=== PATIENT | female | born 1995 | race Caucasian/White ===

== ENCOUNTER 2019-07-24 21:33 | Inpatient (IN) | payer SELFPAY ==
[2019-07-24 21:46] VITALS: BP 127/92; PULSE 132; RESP 16; TEMP 37.1; O2SAT 98; BMI 26.5
[2019-07-24 22:10] LABS: Basophils % 0.1 %; Eosinophils % 0.2 %; Hematocrit 35.7 % (37.0-47.0); Hemoglobin 10.8 g/dL (11.5-15.3); Lymphocytes # 0.9 10^3/uL (0.8-4.8); Lymphocytes % 5.6 %; Mean Corpuscular HGB Conc 30.3 g/dL (30.0-36.0); Mean Corpuscular Hemoglobin 24.4 pg (28.0-34.0); Mean Corpuscular Volume 80.6 fL (81-99); Mean Platelet Volume 9.3 fL (7.4-10.4); Monocytes % 6.5 %; Neutrophils % 87.2 %; Nucleated Red Blood Cells % 0 %; Platelet Count 371 10^3/cmm (130-400); Red Blood Count 4.43 10^6/uL (4.1-5.3)
[2019-07-24 22:20] LABS: HCG Qualitative Urine. Negative (Negative)
[2019-07-24 22:23] LABS: Alanine Aminotransferase 20 U/L (0-33); Albumin Level 4.2 g/dL (3.5-5.2); Alkaline Phosphatase 71 IU/L (35-105); Anion Gap 16.7 (5-19); Aspartate Amino Transferase 18 U/L (0-32); Blood Urea Nitrogen 12 mg/dL (6-20); Carbon Dioxide 25 mmol/L (22-29); Chloride 96 mmol/L (98-107); Globulin 3.9 g/dL (1.3-4.6); Glucose 141 mg/dL (65-115); Lipase 7 U/L (13-60); Osmolality Calculated 274 mOsm/kg (285-295); Potassium 4.7 mmol/L (3.5-5.1); Sodium 133 mmol/L (136-145); Total Bilirubin 0.5 mg/dL (0.15-1.2); Total Protein 8.1 g/dL (6.6-8.7)
--- NOTE | 2019-07-24 22:59 | ED_ITS ---
HPI - Abdominal Pain General: Chief Complaint: Abdominal Pain Stated Complaint: abd pain Time Seen by Provider: 07/24/19 22:57 Source: patient Mode of arrival: ambulatory Limitations: no limitations History of Present Illness: HPI narrative: Patient comes in today with complaints of a 4-day history of abdominal discomfort and nausea. Patient denies any constipation or diarrhea. Patient does report some nausea. Patient does have a low-grade fever. Patient does have a history of substance abuse and mental health disorder. Patient goes to [facility] [address] for her routine medication and does not have a routine primary care provider. MD elicited complaint: abdominal pain Associated Symptoms: Reports nausea Related Data: Date of Last Menstrual Period: 06/26/19 Review of Systems General: Reports: 10 or more systems reviewed and unremarkable except in HPI and below GI: Reports: abdominal pain and nausea PFS ED PFSH: Social History (Updated 06/10/19 @ 10:06 by Emmanuel Larios LPN) Smoking and tobacco status: current every day smoker cigarettes Packs smoked per day: 0.5 Years cigarettes smoked: 6 Quit status (tobacco): has tried quititng Number of times tried to quit tobacco: 1 Second hand smoke exposure: No Smoking risk assessment/counseling performed?: Yes Tobacco counseling given: counseling >3 minutes Female Reproductive History: Date of last menstrual period: 06/26/19 Physical Exam Const: COMMON NORMALS: no apparent distress and oriented x3 GENERAL APPEARANCE: cooperative HENMT: COMMON NORMALS: normocephalic, external ears normal, EAC's normal, TM's normal bilaterally and external nose normal HEAD & SCALP: normal to inspection and normocephalic FACE & SINUS: normal facial exam NOSE: external nose normal GENERAL EAR: hearing not grossly impaired EXTERNAL EAR: Yes external ears normal EXTERNAL AUDITORY CANAL: EAC's normal TYMPANIC MEMBRANE: TM's normal bilaterally MOUTH: oral and palatal mucosa normal THROAT: posterior oropharynx normal Eye: COMMON NORMALS: PERRL and EOMs intact bilaterally PUPIL: Yes PERRL Neck/C-Spine: COMMON NORMALS: full ROM and no lymphadenopathy Lymph: LYMPHATIC: no lymphedema noted Chest: COMMONS NORMALS: inspection of chest normal and palpation of chest normal Resp: COMMON NORMALS: normal respiratory effort and clear to auscultation bilaterally AUSCULTATION: clear to auscultation bilaterally Cardio: COMMON NORMALS: regular rate and regular rhythm RATE: regular rate RHYTHM: regular rhythm GI: INSPECTION: Yes abdominal distension AUSCULTATION: Yes high-pitched bowel sounds PALPATION: Yes tender (diffuse) : COMMON NORMALS: Yes no CVA tenderness BLADDER/KIDNEY EXAM: Yes no CVA tenderness Back/Pelvis: COMMON NORMALS: no CVA tenderness and thoracic and lumbar spine normal to inspection Extremity: COMMON NORMALS: normal to inspection GENERAL: No edema Neuro: COMMON NORMALS: oriented x3, moves all extremities and no focal motor deficits Psych: COMMON NORMALS: mental status grossly normal and cooperative Skin: COMMON NORMALS: no rashes or lesions noted GENERAL SKIN EXAM: no rashes or lesions noted Course 2 Vital Signs: Vital signs: Vital Signs Temperature 98.8 F 07/24/19 21:46 Pulse Rate 132 H 07/24/19 21:46 Respiratory Rate 16 07/24/19 21:46 Blood Pressure 127/92 07/24/19 21:46 Pulse Oximetry 98 07/24/19 21:46 MDM - Abdominal Pain MDM Narrative: Medical decision making narrative: Patient comes in today with complaints of abdominal pain and nausea. Patient also reported a occasional fever. Patient appeared and mild pain. Exam noted bowel sounds were high- pitched with diffuse abdominal tenderness. Vital signs were normal except for elevated pulse rate. Differential diagnosis includes bowel obstruction, appendicitis, gastroenteritis, constipation, urinary tract infection. CBC showed a 16,000 white count, CMP noted a 133 sodium and [address] scan of the abdomen noted a partial small bowel obstruction and colitis. Reviewed exam with Dr. Blankenship who recommended admission to hospital. Discussed with hospitalist Dr. Quintanilla who agreed to admission to observation for small bowel obstruction. Patient needs admission for monitoring, repeat x-ray, IV fluids and nasogastric decompression of the stomach. Patient will also need possible consult with surgery for further evaluation and treatment. Lab Data: Labs: Lab Results 07/24/19 07/24/19 07/24/19 Range/Units 22:00 22:00 22:10 WBC 16.0 H (4.0-10.0) 10^3/ uL RBC 4.43 (4.1-5.3) 10^6/u L Hgb 10.8 L (11.5-15.3) g/dL Hct 35.7 L (37.0-47.0) % MCV 80.6 L (81-99) fL MCH 24.4 L (28.0-34.0) pg MCHC 30.3 (30.0-36.0) g/dL RDW 16.0 H (12.1-15.1) % Plt Count 371 (130-400) 10^3/c mm MPV 9.3 (7.4-10.4) fL Neut % (Auto) 87.2 % Lymph % (Auto) 5.6 % Stevens % (Auto) 6.5 % Eos % (Auto) 0.2 % Baso % (Auto) 0.1 % Neut # (Auto) 14.0 H (1.8-7.7) 10^3/u L Lymph # (Auto) 0.9 (0.8-4.8) 10^3/u L Stevens # (Auto) 1.0 H (0.2-0.9) 10^3/u L Eos # (Auto) 0.0 (0.0-0.8) 10^3/u L Baso # (Auto) 0.0 (0.0-0.1) 10^3/u L Nucleated RBC % (a uto) 0 % Nucleated RBCs # 0.0 /100WBC Sodium 133 L (136-145) mmol/L Potassium 4.7 (3.5-5.1) mmol/L Chloride 96 L (98-107) mmol/L Carbon Dioxide 25 (22-29) mmol/L Anion Gap 16.7 (5-19) BUN 12 (6-20) mg/dL Creatinine 0.7 (0.5-0.9) mg/dL GFR Calculation 102.0 (90-130) mL/min Glucose 141 H (65-115) mg/dL Calculated Osmolal ity 274 L (285-295) mOsm/k g Calcium 10.0 (8.5-10.5) mg/dL Total Bilirubin 0.5 (0.15-1.2) mg/dL AST 18 (0-32) U/L ALT 20 (0-33) U/L Alkaline Phosphata se 71 (35-105) IU/L Total Protein 8.1 (6.6-8.7) g/dL Albumin 4.2 (3.5-5.2) g/dL Globulin 3.9 (1.3-4.6) g/dL Lipase 7 L (13-60) U/L HCG, Qual Negative (Negative) Urine Color (Yellow) Urine Appearance (CLEAR) Urine pH (5-7) Ur Specific Gravit y (1.005-1.030) Urine Protein (Negative) Urine Glucose (UA) (Normal) Urine Ketones (Negative) Urine Blood (Negative) Urine Nitrate (Negative) Urine Bilirubin (NEGATIVE) Urine Urobilinogen (Negative) mg/dL Ur Leukocyte Yudy ase (Negative) Urine RBC (0-2) /hpf Urine WBC (0-5) /hpf Ur Squamous Epith Cells (0-5) Urine Bacteria (NONE) 07/24/19 Range/Units 22:10 WBC (4.0-10.0) 10^3/ uL RBC (4.1-5.3) 10^6/u L Hgb (11.5-15.3) g/dL Hct (37.0-47.0) % MCV (81-99) fL MCH (28.0-34.0) pg MCHC (30.0-36.0) g/dL RDW (12.1-15.1) % Plt Count (130-400) 10^3/c mm MPV (7.4-10.4) fL Neut % (Auto) % Lymph % (Auto) % Stevens % (Auto) % Eos % (Auto) % Baso % (Auto) % Neut # (Auto) (1.8-7.7) 10^3/u L Lymph # (Auto) (0.8-4.8) 10^3/u L Stevens # (Auto) (0.2-0.9) 10^3/u L Eos # (Auto) (0.0-0.8) 10^3/u L Baso # (Auto) (0.0-0.1) 10^3/u L Nucleated RBC % (a uto) % Nucleated RBCs # /100WBC Sodium (136-145) mmol/L Potassium (3.5-5.1) mmol/L Chloride (98-107) mmol/L Carbon Dioxide (22-29) mmol/L Anion Gap (5-19) BUN (6-20) mg/dL Creatinine (0.5-0.9) mg/dL GFR Calculation (90-130) mL/min Glucose (65-115) mg/dL Calculated Osmolal ity (285-295) mOsm/k g Calcium (8.5-10.5) mg/dL Total Bilirubin (0.15-1.2) mg/dL AST (0-32) U/L ALT (0-33) U/L Alkaline Phosphata se (35-105) IU/L Total Protein (6.6-8.7) g/dL Albumin (3.5-5.2) g/dL Globulin (1.3-4.6) g/dL Lipase (13-60) U/L HCG, Qual (Negative) Urine Color Yellow (Yellow) Urine Appearance Cloudy (CLEAR) Urine pH 6 (5-7) Ur Specific Gravit y 1.015 (1.005-1.030) Urine Protein 1+ H (Negative) Urine Glucose (UA) Norm (Normal) Urine Ketones Negative (Negative) Urine Blood 3+ H (Negative) Urine Nitrate Negative (Negative) Urine Bilirubin Neg (NEGATIVE) Urine Urobilinogen Norm (Negative) mg/dL Ur Leukocyte Yudy ase 2+ H (Negative) Urine RBC 80-100 H (0-2) /hpf Urine WBC 25-40 H (0-5) /hpf Ur Squamous Epith Cells 15-25 H (0-5) Urine Bacteria 1+ H (NONE) Discharge Plan Discharge Patient Disposition: Placed in Observation Clinical Impression: Partial small bowel obstruction Condition: Stable Coding Level of Care Code ED Artist Color Separation for Curt Fwd Exam Comprehensive
--- NOTE | 2019-07-24 23:08 | CTR_ITS ---
PROCEDURE INFORMATION: Exam: CT Abdomen And Pelvis With Contrast Exam date and time: 07/24/2019 11:14 PM Age: 24 years old Clinical indication: Bloating and fever; Abdominal pain; Generalized; Additional info: Abd pain, fever TECHNIQUE: Imaging protocol: Computed tomography of the abdomen and pelvis with intravenous contrast. Total DLP: 1191.84 mGy-cm Radiation optimization: All CT scans at this facility use at least one of these dose optimization techniques: automated exposure control; mA and/or kV adjustment per patient size (includes targeted exams where dose is matched to clinical indication); or iterative reconstruction. Contrast material: OMNI 300; Contrast volume: 95 ml; Contrast route: 20G; COMPARISON: No relevant prior studies available. FINDINGS: Liver: Normal. No mass. Gallbladder and bile ducts: Normal. No calcified stones. No ductal dilation. Pancreas: Normal. No ductal dilation. Spleen: Normal. No splenomegaly. Adrenals: Normal. No mass. Kidneys and ureters: Normal. No hydronephrosis. Stomach and bowel: Multiple loops of small bowel are moderately dilated with air and fluid with apparent transition in the right lower quadrant. Fluid and a small amount of air seen in the small bowel distal to the area of transition. Appendix: No evidence of appendicitis. Intraperitoneal space: Unremarkable. No free air. No significant fluid collection. Vasculature: Unremarkable. No abdominal aortic aneurysm. Lymph nodes: Mild mesenteric lymphadenopathy is appreciated. Diffuse wall thickening is observed in the colon. Air and stool are also seen in the colon. Bladder: Unremarkable as visualized. Reproductive: The uterus and ovaries appear normal. Bilateral ovarian cysts are seen. The largest cyst measures 3.9 cm (left ovary). Bones/joints: Several old right rib fractures are appreciated. No acute fracture is seen. Soft tissues: Unremarkable. CT/CT abdomen pelvis w con* [id number] IMPRESSION: Colitis and high-grade partial small bowel obstruction Radiation Dose CTDIVOL = (mGy): DLP = 1191.84 (mGy-cm)
[2019-07-24] MEDS: sodium chloride 0.9% 1,000 ML 999 ML IV (23:38)
[2019-07-25] VITALS (12 sets, daily range): BP systolic 100–127; BP diastolic 63–77; PULSE 84–128; RESP 16–20; TEMP 36.6–37.3; O2SAT 90–99
[2019-07-25] MEDS: pantoprazole 40 mg SDV IVP ×2 (00:45→17:25)
[2019-07-25] MEDS: ketorolac 30 mg/mL INJ 15 MG IVP (00:48)
[2019-07-25] MEDS: iohexol 300 mg/mL 100 mL Btl IV (01:02)
[2019-07-25 01:47] LABS: Bilirubin Urine Neg (NEGATIVE); Blood Urine 3+ (Negative); Glucose Urine UA Norm (Normal); Ketones Urine Negative (Negative); Leukocyte Esterase Urine 2+ (Negative); Nitrate Urine Negative (Negative); Protein Urine 1+ (Negative); Specific Gravity, Urine 1.015 (1.005-1.030); Urine Appearance Cloudy (CLEAR); Urine Color Yellow (Yellow); Urobilinogen Urine Norm (Negative); pH Urine 6 (5-7)
[2019-07-25 01:48] LABS: Add Urine Microscopic? YES
[2019-07-25 01:50] LABS: RBC Urine 80-100 /hpf (0-2); Squamous Epithelial Cell Urine 15-25 (0-5); WBC Urine 25-40 /hpf (0-5)
[2019-07-25 01:51] LABS: Add Urine Culture? No; Bacteria Urine 1+
--- NOTE | 2019-07-25 02:26 | PM.HP ---
Providers/Chief Complaint Chief Complaint: abd pain History of Present Illness Joceline Peterson is a 24 year old female with no significant past medical history or surgical history came in with chief complaint of abdominal bloating. Patient is stating that over the weekend she ate Uzbek with rest of her family members, no one is sick, no one developed diarrhea, fever or bloody stool. She started experiencing abdominal bloating about 4 days ago, she was experiencing nausea and facial flushing without any vomiting or excruciating abdominal pain. She denies dysuria, constipation or diarrhea, recent traveling, previous history of constipation, abdominal surgeries. She has had 5 pregnancies without any . She has noticed facial flushing, temperature 100.2 at home. She is denying joint pain, yellow eyes, recent exposure to cement pool or hightower water. Diagnostics in ER revealed leukocytosis, tachycardia, CT abdomen shows colitis with partial small bowel obstruction NG tube will be placed, started her on Zosyn Review of Systems Const: Reports: fever, chills, body aches, change in appetite, fatigue, malaise and diaphoresis Eyes: Denies: change in vision or photophobia ENMT: Denies: throat pain or uvular edema Card: Denies: chest pain or palpitations Resp: Denies: shortness of breath or non-productive cough GI: Reports: abdominal pain and nausea; Denies: vomiting, vomiting blood, coffee grounds in vomit, difficulty swallowing, diarrhea, constipation, bloating, excessive passing of gas, fecal incontinence, change in bowel habits, painful bowel movements, rectal swelling, change in stool character or mucus in stool : Denies: flank pain, difficulty urinating, urinary frequency or urinary urgency Musc: Denies: neck pain, extremity swelling or joint warmth Skin/Breast: Denies: rash, itching, skin pain or skin tenderness Neuro: Denies: headache, numbness in extremities, weakness in extremities, changes in sensation or difficulty walking Psych: Reports: depression; Denies: anxiety or loss of interest Endo: Denies: excessive urination or excessive thirst Beni/Lymph: Denies: easy bruising All/Imm: Denies: hives Medications/Allergies Allergies Allergy/AdvReac Type Severity Reaction Status Date / Time No Known Allergies Allergy Unverified 06/09/19 15:49 PFSH Acute PFSH: Medical History (Updated 07/25/19 @ 02:50 by Josiah Rich MD) Depression Self-injurious behavior Smoker Suicidal ideation Surgical History No pertinent past surgical history Family History (Updated 07/25/19 @ 02:49 by Josiah Rich MD) Father Psychiatric illness Schizophrenia, Unknown Psychiatric illness 2 of her cousins committed suicide Denies family history of CAD (coronary artery disease) Clotting disorder Chronic kidney disease (CKD) Cancer Social History (Updated 07/25/19 @ 02:49 by Josiah Rich MD) Smoking and tobacco status: current every day smoker cigarettes Packs smoked per day: 0.5 Years cigarettes smoked: 6 Quit status (tobacco): has tried quititng Number of times tried to quit tobacco: 1 Second hand smoke exposure: No Smoking risk assessment/counseling performed?: Yes Tobacco counseling given: counseling >3 minutes Alcohol intake: never Substance/Drug Use: never Household members: family Housing: House Female Reproductive History: Date of last menstrual period: 06/26/19 Vitals/I&O/Wt Last Vital Signs Temp 98.8 F 07/24/19 21:46 Pulse 132 H 07/24/19 21:46 Resp 16 07/24/19 21:46 BP 127/92 07/24/19 21:46 Pulse Ox 98 07/24/19 21:46 07/24/19 07/24/19 07/25/19 14:59 22:59 06:59 Intake Total 1000 / 1000 Balance 1000 / 1000 Weight last 48 hrs Weight 65.771 kg Physical Exam Narrative: EXAM NARRATIVE: Young female lying comfortable in her bed Facial flushing Hyperemic skin rash around her neck necklace No signs of cellulitis Skin is warm nontender S1, S2 sinus tachycardia no signs of heart failure Abdomen, soft, tenderness to deep palpation in mid epigastric and hypogastric region, bowel sounds sluggish Alert oriented x3 GCS 15 Skin does not show any sign ischemia gangrene ulcer however positive skin rash around necklace Appropriate mood and affect No suicidal ideation Data : 07/24/19 22:00 07/24/19 22:00 A&P Assessment and plan (1) Colitis: Status: Acute Code(s): K52.9 - Noninfective gastroenteritis and colitis, unspecified (2) Partial small bowel obstruction: Status: Acute Code(s): K56.600 - Partial intestinal obstruction, unspecified as to cause (3) Smoker: Status: Acute Code(s): F17.200 - Nicotine dependence, unspecified, uncomplicated Additional A&P Information Sepsis secondary to colitis Sepsis A met with leukocytosis, tachycardia, will check lactic acid D5 half-normal saline fluid maintenance Zosyn antibiotic for gram-negative and anaerobic coverage She is denying UTI symptoms She ate Uzbek over the weekend, will obtain stool culture and rule out C. difficile, no history of ulcerative colitis or Crohn's disease NG to suction N.p.o. Zofran for nausea vomiting Drug screen Partial small bowel obstruction No previous history of major abdominal surgeries This seems secondary to ileus due to colitis Conservative management Serial abdominal exam with KUB No urgent need of surgical consult Depression: She is on Abilify No acute exacerbation Microcytic anemia Hemoglobin 10.8, She will need iron supplements on discharge FOBT to be checked Old rib fractures seen on CT abdomen No active pain around her rib cage DVT prophylaxis: SCDs she has low risk for DVT, Active smoker: Counseled on smoking cessation, Full code Attestations Medical Necessity Statement*: Anticipating stay in the hospital to cross more than 2 midnights needs management for partial small obstruction and colitis Time Spent in Patient Care: 40 Coding Level of Care Code Acute [place] [employer] Lab Technician for Curt Elder Diagnoses Colitis K52.9 Partial small bowel obstruction K56.600 Smoker F17.200
[2019-07-25] MEDS: morphine 4 mg/mL SDV 1 mL 2 MG IVP ×5 (02:50→23:47)
--- NOTE | 2019-07-25 03:50 | PC.NURSE ---
Patient will be going to [facility] due to recent fevers the last few days. No fevers reported today in ER.
[2019-07-25] MEDS: dextrose 5%-sod chloride 0.45% 1,000 ML 100 ML IV ×3 (04:41→23:49)
[2019-07-25] MEDS: piperacillin-tazobactam 3.375 GM in sodium chloride 0.9% (plus) 100 ML IV ×3 (05:21→19:51)
--- NOTE | 2019-07-25 10:52 | PC.CHAP ---
Pastoral Care Encounter/Spiritual Assessment Type of Contact [] Declined spinning mule tender visit [] Patient/Family/Request visit [] Outpatient visit [] Follow-up visit [] Physician referral [] Code/Alert [x] Routine visit [] Staff referral [] Actively dying [] Patient sleeping [] Family support [] [] Out of room [] Palliative care [] [] Receiving care in room [] Pre-surgical visit [] Trauma [] Long length of stay [] ICU visit [] Other: Relational/Emotional Strength [x] Patient feels connected with others/family/visitors/staff [] Distress [] Loneliness/isolation [] Abandonment Spirituality of Patient [x] Person of Shanita [x] Attends [employer] of their Shan[place] [x] Believes in Prayer [] Reads Bible or Scientology materials [] There are Spiritual issues to be addressed 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 Interventions [x] Prayer [] Active listening [] Non-anxious presence [] Spiritual/emotional support [] Crisis/trauma care [] Spiritual counseling [] Bereavement support [] Provided bereavement packet [] Provided Bible/devotional materials [] Provided toy/stuffed animal, coloring book to patient or family member [] Provided Communion [] Anointing/[place]cd[place] [] Salvation [x]x Completed spiritual assessment [] Other: Impact on Illness or Injury [] Angry [] Fearful [] Anxious [] Often cries [] Exhaustion [] Unable to work [] Unable to attend christian [] Unable to walk/stand [] Unable to read [] Unable to drive [] Unable to eat/drink [] Unable to sleep [] Unable to be with family [] Patient intubated [] Other: Summary Time spent with patient 10 min
[2019-07-25 11:42] LABS: HCG Qualitative Urine. Negative (Negative)
[2019-07-25 14:34] LABS: Amphetamines Screen Urine Positive (Negative); Barbiturates Screen Urine Negative (Negative); Benzodiazepines Screen Urine Negative (Negative); Cocaine Screen Urine Negative (Negative); Opiate Screen Urine Negative (Negative); PCP Screen Urine Negative (Negative); THC Screen Urine Positive (Negative)
[2019-07-25] MEDS: phenol oral Spray 177 mL 3 SPRAY MUCOUS MEM (14:55)
--- NOTE | 2019-07-25 15:45 | PM.PN ---
Subjective Subjective: Interval history: Patient denies nausea. She reports some abdominal pain but reports that overall is better and also less distended. She reports having bowel movement last evening which was formed. She has been having bowel movements in the last several days ever since her symptoms started. She did not pass gas today but did yesterday. Vitals/I&O/Wt Last Vital Signs Temp 98.7 F 07/25/19 11:48 Pulse 123 H 07/25/19 11:48 Resp 18 07/25/19 15:09 BP 115/65 07/25/19 11:48 Pulse Ox 99 07/25/19 11:48 07/25/19 07/25/19 07/25/19 06:59 14:59 22:59 Intake Total 1000.417 / 7647.485 8290.583 / 1099.583 Balance 1000.417 / 4849.911 6073.583 / 1099.583 Weight last 48 hrs Weight 65.771 kg Physical Exam Const: COMMON NORMALS: no apparent distress and oriented x3 Resp: COMMON NORMALS: normal respiratory effort and clear to auscultation bilaterally AUSCULTATION: clear to auscultation bilaterally Cardio: COMMON NORMALS: regular rate, regular rhythm and S2 normal heart sound RATE: regular rate RHYTHM: regular rhythm HEART SOUNDS: S2 normal OTHER: No lower extremity edema GI: COMMON NORMALS: normal to inspection, nondistended, normoactive bowel sounds and soft to palpation PALPATION: Yes soft OTHER: Slightly tender throughout but mostly left lower quadrant Neuro: COMMON NORMALS: oriented x3 and no focal motor deficits Data : 07/24/19 22:00 07/24/19 22:00 A&P Assessment and plan (1) Colitis: Status: Acute Code(s): K52.9 - Noninfective gastroenteritis and colitis, unspecified (2) Partial small bowel obstruction: Status: Acute Code(s): K56.600 - Partial intestinal obstruction, unspecified as to cause (3) Smoker: Status: Acute Code(s): F17.200 - Nicotine dependence, unspecified, uncomplicated Additional A&P Information Sepsis secondary to colitis Partial small bowel obstruction Depression: She is on Abilify Microcytic anemia Old rib fractures seen on CT abdomen PLAN: Reports that she is sure she is not . Continue IV fluids. So far not much NG output and she is very uncomfortable with tube. We have discussed to clamp it and monitor overnight and if no significant output and patient remains nausea free we could possibly remove it and try clear liquid diet. It is unknown at this point the reason why patient has small bowel obstruction. This could be infectious in etiology and therefore we will continue antibiotics for now. Patient denies any family history of inflammatory bowel disease. Should patient not improve move may need to do further evaluation with endoscopy and possibly surgical intervention. Case discussed with patient and her mother at bedside. They voiced understanding and agreed with plan of treatment. I have discussed with patient regarding importance of smoking cessation. Patient voiced understanding. Will initiate anticoagulation with Lovenox for DVT prophylaxis and start patient on Protonix with monitoring of hemoglobin. DVT prophylaxis: Lovenox Active smoker: Counseled on smoking cessation, Full code Attestations Medical Necessity Statement*: Patient with small bowel obstruction requires close inpatient monitoring and treatment. Coding Level of Care Code Acute [employer] Nutrition Territory Manager for Chg Fwd Diagnoses Colitis K52.9 Partial small bowel obstruction K56.600 Smoker F17.200
[2019-07-25] MEDS: enoxaparin 40 mg/0.4 mL Syringe SUBCUT (17:14)
[2019-07-26] VITALS (9 sets, daily range): BP systolic 104–116; BP diastolic 67–78; PULSE 105–122; RESP 16–20; TEMP 36.4–36.7; O2SAT 95–100
--- NOTE | 2019-07-26 00:59 | PC.NURSE ---
Patient having increased pain in abdomen, PRN dose of morphine given. Physician notified. Orders received to hook NGT to LIS. LIS on for one hour with minimal output, patient still having increased pain. Notified physician, CT ordered, additional pain medication ordered. Will continue to monitor patient.
--- NOTE | 2019-07-26 01:07 | CTR_ITS ---
PROCEDURE INFORMATION: Exam: CT Abdomen And Pelvis Without Contrast Exam date and time: 07/26/2019 1:13 AM Age: 24 years old Clinical indication: Pain and condition or disease; Intestinal condition; Obstruction; Abdominal pain; Generalized; Patient HX: Increased llq abd pain, ng tube, partial sbo; Additional info: Rule out perforation TECHNIQUE: Imaging protocol: Computed tomography of the abdomen and pelvis without contrast. Total DLP: 992.16 mGy-cm Radiation optimization: All CT scans at this facility use at least one of these dose optimization techniques: automated exposure control; mA and/or kV adjustment per patient size (includes targeted exams where dose is matched to clinical indication); or iterative reconstruction. COMPARISON: CT abdomen pelvis w con* [id number] 07/25/2019 1:16 AM FINDINGS: Tubes, catheters and devices: There is an orogastric tube with tip in the stomach. Lungs: There is ground-glass opacity in the lung bases compatible with mild atelectasis or pneumonitis. Liver: There is a diffuse decrease in hepatic parenchymal density, consistent with fatty infiltration. Gallbladder and bile ducts: There is cholelithiasis. There is also hyperdensity in the gallbladder that is suspected to be vicarious excretion of contrast or radiodense sludge. No duct dilatation. Pancreas: Normal. No ductal dilation. Spleen: Normal. No splenomegaly. Adrenals: Normal. No mass. Kidneys and ureters: There is no evidence of hydronephrosis. There is no evidence of renal calcifications. Stomach and bowel: There are dilated loops of small bowel with air-fluid levels compatible with a partial small bowel obstruction. The greatest transverse measurement is 4.5 cm. The proximal small bowel/jejunum is collapsed in the left upper quadrant image 34. The distal small bowel is also collapsed. The dilated loops of small bowel specially when viewed on the coronal images are concerning for closed loop obstruction with concentric where rings and a swirled appearance of the mesentery. The loops of colon have an appropriate appearance. Some of the loops of small bowel distal to the obstruction have mild wall thickening that may reflect lack of distention or could reflect mild edema such such as seen with early bowel ischemia. Appendix: No evidence of appendicitis. Intraperitoneal space: There is a small amount of fluid in the pelvis. No localized fluid collection or abscess. No free air. No pneumatosis or free air. There is mild haziness of the mesenteric fat with edema compatible with reactive changes. Vasculature: Unremarkable.No abdominal aortic aneurysm. Lymph nodes: Subcentimeter lymph nodes are noted in the mesentery. Bladder: Unremarkable as visualized. Reproductive: Unremarkable as visualized. Bones/joints: Old right rib fracture deformities are noted. Soft tissues: There is a small focus of subcutaneous emphysema just beneath the skin surface of the lower abdominal wall that is presumed to be from recent subcutaneous injection. CT/CT abdomen pelvis wo con [id number] IMPRESSION: 1. Dilated loops of small bowel with swirled appearance of the mesentery. There are collapsed proximal and distal loops of small bowel in the appearance is compatible with a closed loop obstruction. No pneumatosis or free air. 2. Mild wall thickening/edema of the loops of small bowel distal to the obstruction is identified. This may reflect lack of distention or early edema/ischemia. Radiation Dose CTDIVOL = (mGy): DLP = 992.16 (mGy-cm)
[2019-07-26] MEDS: HYDROmorphone 1 mg/mL INJ 1 mL 2 MG IVP (01:19)
[2019-07-26] MEDS: pantoprazole 40 mg SDV IVP ×2 (04:45→16:32)
[2019-07-26] MEDS: piperacillin-tazobactam 3.375 GM in sodium chloride 0.9% (plus) 100 ML IV ×3 (04:45→21:22)
--- NOTE | 2019-07-26 04:51 | PC.NURSE ---
Patient received one time dose of dilaudid, went to radiology for CT scan via wheelchair in stable condition. Arrived back on floor in stable condition stating pain is much better now than before going down to CT. Discussed CT results with Dr Rich, per physician to keep NGT on LIS. Patient abdomen still distended but soft, bowel sounds present but hypoactive. Patient states she is feeling much better, is sleepy but easily arousable and appropriate. Will continue to monitor patient.
[2019-07-26 05:22] LABS: Basophils % 0.1 %; Eosinophils # 0.1 10^3/uL (0.0-0.8); Eosinophils % 0.7 %; Hemoglobin 9.4 g/dL (11.5-15.3); Lymphocytes # 1.2 10^3/uL (0.8-4.8); Lymphocytes % 12.7 %; Mean Corpuscular HGB Conc 30.3 g/dL (30.0-36.0); Mean Corpuscular Hemoglobin 25.1 pg (28.0-34.0); Mean Corpuscular Volume 82.7 fL (81-99); Mean Platelet Volume 9.2 fL (7.4-10.4); Monocytes # 0.7 10^3/uL (0.2-0.9); Monocytes % 7.5 %; Neutrophils # 7.5 10^3/uL (1.8-7.7); Neutrophils % 78.7 %; Nucleated Red Blood Cells % 0 %; Platelet Count 315 10^3/cmm (130-400); Red Blood Count 3.75 10^6/uL (4.1-5.3); Red Cell Distribution Width 16.3 % (12.1-15.1); White Blood Count 9.5 10^3/uL (4.0-10.0)
[2019-07-26 05:33] LABS: Alanine Aminotransferase 15 U/L (0-33); Albumin Level 3.3 g/dL (3.5-5.2); Alkaline Phosphatase 58 IU/L (35-105); Anion Gap 13.6 (5-19); Aspartate Amino Transferase 12 U/L (0-32); Blood Urea Nitrogen 5 mg/dL (6-20); Calcium 8.8 mg/dL (8.5-10.5); Carbon Dioxide 25 mmol/L (22-29); Chloride 96 mmol/L (98-107); Creatinine Clr Calc Pharmacy 127.5466; Globulin 3.4 g/dL (1.3-4.6); Glomerular Filtration Rate 121.8 mL/min (90-130); Glucose 110 mg/dL (65-115); Osmolality Calculated 268 mOsm/kg (285-295); Potassium 3.6 mmol/L (3.5-5.1); Sodium 131 mmol/L (136-145); Total Bilirubin 0.5 mg/dL (0.15-1.2); Total Protein 6.7 g/dL (6.6-8.7)
[2019-07-26 05:34] LABS: Lactic Acid level (Lactate) 0.4 mmol/L (0.5-2.2)
[2019-07-26] MEDS: dextrose 5%-sod chloride 0.45% 1,000 ML 100 ML IV (09:24)
--- NOTE | 2019-07-26 14:03 | P.CONIM_ITS ---
Providers/Reason For Consult Consulting Physican/Specialty*: Lane Kinsey MD General surgery Reason for Consult*: Bowel obstruction Attending Physician: Jeramie Peraza MD History of Present Illness History of Present Illness Joceline Peterson is a 24 year old female patient presents with worsening abdominal pain as the pain started about last Sunday and she developed worsening pain which is more diffuse colicky in nature without being referred, nothing seems to make it better and that was associated with fevers per her description and abdominal distention, patient thought over the past few days that it will get better but it did not that is why she presented to the emergency department evening and ended up by getting a CT scan of the abdomen and pelvis that showed: Colitis and high-grade partial small bowel obstruction Patient was admitted on the hospitalist service and an NG tube was inserted and patient consequently felt relief at when the NG was clamped today patient started to encounter pain again and thus the hospitalist service elected to repeat the CT scan for further evaluation and a repeat CT scan showed: 1. Dilated loops of small bowel with swirled appearance of the mesentery. There are collapsed proximal and distal loops of small bowel in the appearance is compatible with a closed loop obstruction. No pneumatosis or free air. 2. Mild wall thickening/edema of the loops of small bowel distal to the obstruction is identified. This may reflect lack of distention or early edema/ischemia Upon further inquiry the patient did not have any history of abdominal surgeries or pelvic inflammatory disease or any history of inflammatory bowel disease when I asked her. Dr. Peraza contacted me for consultation with regard to the above findings due to his concerns for further evaluation and potential intervention Patient also denies any history of food poisoning and she has been passing gas and before coming to the hospital she had a bowel movement. After further discussion with the radiologist correctional officer lieutenant about my concerns that the CT scan does not signify a closed-loop giving the fact the clinical picture as well as the absence of biochemical parameters to support that addendum was added: Findings were discussed with Amelie at 07/26/2019 2:36 PM CDT. He wished to discuss whether or not the patient has definite CT signs of closed loop bowel obstruction and/or ischemia. I pointed out that since the scan yesterday she had an NG placed which has decompressed the stomach and likely proximal small bowel. The dilated small bowel does not have a thickened wall. The wall thickening more so affects the terminal ileum and colon. Cannot assess on this scan for hypoperfusion of bowel as it is a noncontrast study. However, he indicated the patient's WBC has dropped from 16K to 9.5K, and her lactic acid is normal at 0.4. He said she has no peritoneal signs. There is mild mesenteric adenopathy which can be reactive to a bowel inflammatory process. I suggested that perhaps she has inflammatory bowel disease, complicated by SBO. Review of Systems Const: Reports: fever, chills, change in appetite, fatigue and malaise Eyes: Denies: change in vision or photophobia ENMT: Denies: throat pain or uvular edema Card: Denies: chest pain or palpitations Resp: Denies: shortness of breath or non-productive cough GI: Reports: abdominal pain and nausea; Denies: vomiting, vomiting blood, coffee grounds in vomit, difficulty swallowing, diarrhea, constipation, bloating, excessive passing of gas, fecal incontinence, change in bowel habits, painful bowel movements, rectal swelling, change in stool character or mucus in stool : Denies: flank pain, difficulty urinating, urinary frequency or urinary urgency Musc: Denies: neck pain, extremity swelling or joint warmth Skin/Breast: Denies: rash, itching, skin pain or skin tenderness Neuro: Denies: headache, numbness in extremities, weakness in extremities, changes in sensation or difficulty walking Psych: Reports: depression; Denies: anxiety or loss of interest Endo: Denies: excessive urination or excessive thirst Beni/Lymph: Denies: easy bruising All/Imm: Denies: hives Meds/Allergies Home Medications and Allergies Home Medications Medication Instructions Recorded Confirmed Type aripiprazole [Abilify] 15 mg PO BEDTIME 07/25/19 07/25/19 History Allergies Allergy/AdvReac Type Severity Reaction Status Date / Time No Known Allergies Allergy Verified 07/26/19 14:32 Current Medications Current Medications Generic Name Dose Route Start Last Admin Trade Name Freq PRN Reason Stop Dose Admin Enoxaparin Sodium 40 mg 07/25/19 16:00 07/25/19 17:14 Lovenox SUBCUT 40 mg Q24H SHEBA Administration Piperacillin Sod/Tazobactam 100 mls @ 25 mls/hr 07/25/19 05:00 07/26/19 12:09 Sod 3.375 gm/ Sodium Chloride IV 25 mls/hr Q8H SHEBA Administration Protocol Dextrose/Sodium Chloride 1,000 mls @ 100 mls/hr 07/25/19 04:12 07/26/19 09:24 Dextrose 5%-Sod Chloride 0.45% IV 100 mls/hr .Q10H SHEBA Administration Morphine Sulfate 2 mg 07/25/19 04:59 07/25/19 23:47 Morphine IVP 2 mg Q4H PRN Administration PAIN Pantoprazole Sodium 40 mg 07/25/19 16:00 07/26/19 04:45 Protonix IVP 40 mg Q12H SHEBA Administration Phenol 3 spray 07/25/19 14:25 07/25/19 14:55 Phenaseptic MUCOUS MEM 3 spray Q2H PRN Administration SORE THROAT PFSH Acute PFSH: Medical History Depression Self-injurious behavior Smoker Suicidal ideation Surgical History No pertinent past surgical history Family History Father Psychiatric illness Schizophrenia, Unknown Psychiatric illness 2 of her cousins committed suicide Denies family history of CAD (coronary artery disease) Clotting disorder Chronic kidney disease (CKD) Cancer Social History Smoking and tobacco status: current every day smoker cigarettes Packs smoked per day: 0.5 Years cigarettes smoked: 6 Quit status (tobacco): has tried quititng Number of times tried to quit tobacco: 1 Second hand smoke exposure: No Smoking risk assessment/counseling performed?: Yes Tobacco counseling given: counseling >3 minutes Alcohol intake: never Substance/Drug Use: never Household members: family Housing: House Female Reproductive History: Date of last menstrual period: 07/25/19 Vitals/I&O/Wt Last Vital Signs Temp 97.9 F 07/26/19 11:59 Pulse 113 H 07/26/19 11:59 Resp 18 07/26/19 11:59 BP 113/76 07/26/19 11:59 Pulse Ox 99 07/26/19 11:59 07/25/19 07/26/19 07/26/19 22:59 06:59 14:59 Intake Total 100 / 1199.583 981.667 / 2181.250 1058.333 / 1058.333 Output Total 500 / 500 Balance 100 / 1199.583 481.667 / 9774.749 1913.333 / 1058.333 Weight last 48 hrs Weight 145 lb Physical Exam Const: COMMON NORMALS: no apparent distress GENERAL APPEARANCE: cooperative ORIENTATION/CONSCIOUSNESS: Yes awake, Yes oriented to person, Yes oriented to place and Yes oriented to time HENMT: COMMON NORMALS: normocephalic HEAD & SCALP: normocephalic THROAT: no uvular edema Eye: COMMON NORMALS: PERRL and no scleral icterus PUPIL: Yes PERRL Lymph: LYMPHATIC: no lymphadenopathy noted Chest: COMMONS NORMALS: inspection of chest normal Resp: COMMON NORMALS: normal respiratory effort and clear to auscultation bilaterally AUSCULTATION: clear to auscultation bilaterally Cardio: COMMON NORMALS: S1 normal heart sound and S2 normal heart sound; negative for no murmurs HEART SOUNDS: S1 normal and S2 normal GI: COMMON NORMALS: soft to palpation; negative for no hepatosplenomegaly INSPECTION: Yes normal to inspection PALPATION: Yes soft, No firm, Yes tender Details: LLQ and RUQ, No guarding, No rigid and No no hepatosplenomegaly Neuro: SENSORIUM/ORIENTATION: Yes oriented to person, Yes oriented to place and Yes oriented to time Psych: COMMON NORMALS: mental status grossly normal A&P Assessment and plan (1) Partial small bowel obstruction: After thorough history physical examination and reviewing the chart and images with my personal interpretation, picture shows partial small bowel obstruction yet in the absence of objective signs of leukocytosis and normal lactic acid does not match the potential changes mentioned on the CT scan,at the same time the patient demonstrates on clinical exam tenderness located on the right side of the abdomen and the left lower side of the abdomen but without signs of peritonitis or guarding or rigidity. I did discuss with mom and the daughter about potential options including; Observation with repeated physical examination and repeat blood work w particular focus on obtaining ESR,CRP and stool studies and likely the patient should benefit down the road from a small bowel follow-through and diagnostic EGD and colonoscopy to rule out potential inflammatory bowel disease, since there is no evidence of closed-loop obstruction on the repeat CT scan as was noted earlier per further discussion with the radiologist on-call did not see that finding I feel more leaning towards conservative measures at this point unless the clinical picture should to change. At this point please continue NG to low intermittent wall suction and IV fluid resuscitation with repeated physical examination. There is a concern for IBD I would recommend ciprofloxacin and Flagyl IV yet will defer to Dr. Peraza for choice of antimicrobial therapy. Strict I's and O's Encourage ambulation Thank you for consulting general surgery to participate taking care Status: Acute Code(s): K56.600 - Partial intestinal obstruction, unspecified as to cause Consult Attestations Medical Necessity Statement: Per hospitalist service Time Spent in Patient Care: 16 - 35 minutes (>than 50% of time spent in counselling and/or direct pt care on unit) . Coding Level of Care Code Acute Boot And Saddle Repair Person for Chg Fwd Exam Comprehensive Diagnoses Partial small bowel obstruction K56.600
--- NOTE | 2019-07-26 14:07 | PC.CHAP ---
Pastoral Care Encounter/Spiritual Assessment Type of Contact [] Declined resident physician visit [] Patient/Family/Request visit [] Outpatient visit [] Follow-up visit [] Physician referral [] Code/Alert [] Routine visit [] Staff referral [] Actively dying [X] Patient sleeping [] Family support [] [] Out of room [] Palliative care [] [] Receiving care in room [] Pre-surgical visit [] Trauma [] Long length of stay [] ICU visit [] Other: Relational/Emotional Strength [] Patient feels connected with others/family/visitors/staff [] Distress [] Loneliness/isolation [] Abandonment Spirituality of Patient [] Person of Shanita [] Attends Scientology of their Shanita [] Believes in Prayer [] Reads Bible or Amish materials [] There are Spiritual issues to be addressed Director Government Interventions [] Prayer [] Active listening [] Non-anxious presence [] Spiritual/emotional support [] Crisis/trauma care [] Spiritual counseling [] Bereavement support [] Provided bereavement packet [] Provided Bible/devotional materials [] Provided toy/stuffed animal, coloring book to patient or family member [] Provided Communion [] Anointing/[place] [] Salvation [] Completed spiritual assessment [] Other: Impact on Illness or Injury [] Angry [] Fearful [] Anxious [] Often cries [] Exhaustion [] Unable to work [] Unable to attend lutheran [] Unable to walk/stand [] Unable to read [] Unable to drive [] Unable to eat/drink [] Unable to sleep [] Unable to be with family [] Patient intubated [] Other: Summary FOLLOW UP Time spent with patient
[2019-07-26] MEDS: morphine 4 mg/mL SDV 1 mL 2 MG IVP ×2 (14:14→19:19)
[2019-07-26] MEDS: enoxaparin 40 mg/0.4 mL Syringe SUBCUT (15:40)
--- NOTE | 2019-07-26 17:02 | PM.PN ---
Subjective Subjective: Interval history: Patient had worsening abdominal pain last night and had CT scan of the abdomen showing closed-loop obstruction findings and case was discussed with Dr. York who saw the patient in consultation. Vitals/I&O/Wt Last Vital Signs Temp 97.8 F 07/26/19 15:46 Pulse 107 H 07/26/19 15:46 Resp 16 07/26/19 15:46 BP 109/70 07/26/19 15:46 Pulse Ox 100 07/26/19 15:46 07/26/19 07/26/19 07/26/19 06:59 14:59 22:59 Intake Total 981.667 / 2181.250 1058.333 / 1058.333 Output Total 500 / 500 Balance 481.667 / 7748.465 5959.333 / 1058.333 Weight last 48 hrs Weight 65.771 kg Physical Exam Const: COMMON NORMALS: no apparent distress and oriented x3 Resp: COMMON NORMALS: normal respiratory effort and clear to auscultation bilaterally AUSCULTATION: clear to auscultation bilaterally Cardio: COMMON NORMALS: regular rate, regular rhythm and S2 normal heart sound RATE: regular rate RHYTHM: regular rhythm HEART SOUNDS: S2 normal OTHER: No lower extremity edema GI: COMMON NORMALS: normal to inspection, nondistended, normoactive bowel sounds and soft to palpation PALPATION: Yes soft OTHER: Slightly tender throughout but mostly left lower quadrant Neuro: COMMON NORMALS: oriented x3 and no focal motor deficits Data : 07/26/19 05:12 07/26/19 05:12 A&P Assessment and plan (1) Colitis: Status: Acute Code(s): K52.9 - Noninfective gastroenteritis and colitis, unspecified (2) Partial small bowel obstruction: Status: Acute Code(s): K56.600 - Partial intestinal obstruction, unspecified as to cause (3) Smoker: Status: Acute Code(s): F17.200 - Nicotine dependence, unspecified, uncomplicated Additional A&P Information Sepsis secondary to colitis Partial small bowel obstruction Depression: She is on Abilify Microcytic anemia Old rib fractures seen on CT abdomen PLAN: Continue current monitoring and treatment. Appreciate Dr. Kinsey's help. Patient may require surgical intervention if not improving. Patient will require further outpatient follow-up and evaluation for Crohn's disease. DVT prophylaxis: Lovenox Active smoker: Counseled on smoking cessation, Full code Attestations Medical Necessity Statement*: With small bowel obstruction requires close inpatient monitoring and treatment. Coding Level of Care Code Acute Emergency Dispatcher for Chg Fwd Diagnoses Colitis K52.9 Partial small bowel obstruction K56.600 Smoker F17.200
[2019-07-26] MEDS: lactated ringers 1,000 ML 150 ML IV (17:27)
[2019-07-26] MEDS: trazodone 50 mg Tablet 25 MG PO (21:54)
[2019-07-27] VITALS: BP 114/78; PULSE 103; RESP 18; TEMP 36.9; O2SAT 98
[2019-07-27] MEDS: lactated ringers 1,000 ML 150 ML IV ×3 (00:21→12:10)
[2019-07-27 04:00] VITALS: BP 139/86; PULSE 102; RESP 18; TEMP 36.6; O2SAT 97
[2019-07-27] MEDS: pantoprazole 40 mg SDV IVP ×2 (04:59→17:39)
[2019-07-27] MEDS: piperacillin-tazobactam 3.375 GM in sodium chloride 0.9% (plus) 100 ML IV (04:59)
--- NOTE | 2019-07-27 05:19 | PC.NURSE ---
Patient got up to use restroom, NGT came out. Patient has had a total of 150 ml out overnight, has been tolerating ice chips, and rates pain 5/10 currently. Notified charley Hobbs to leave NGT out at this time. Will continue to monitor patient.
[2019-07-27 05:42] LABS: Alanine Aminotransferase 13 U/L (0-33); Albumin Level 2.9 g/dL (3.5-5.2); Alkaline Phosphatase 56 IU/L (35-105); Anion Gap 14.8 (5-19); Aspartate Amino Transferase 12 U/L (0-32); Blood Urea Nitrogen 6 mg/dL (6-20); Calcium 8.7 mg/dL (8.5-10.5); Carbon Dioxide 26 mmol/L (22-29); Chloride 104 mmol/L (98-107); Globulin 3.5 g/dL (1.3-4.6); Glomerular Filtration Rate 150.3 mL/min (90-130); Glucose 82 mg/dL (65-115); Osmolality Calculated 287 mOsm/kg (285-295); Potassium 3.8 mmol/L (3.5-5.1); Sodium 141 mmol/L (136-145); Total Bilirubin 0.3 mg/dL (0.15-1.2); Total Protein 6.4 g/dL (6.6-8.7)
--- NOTE | 2019-07-27 07:30 | PM.PN ---
Subjective Subjective: Interval history: Patient overall feels better No acute events overnight except that the NG according to the patient was accidentally pulled out Patient continues to pass gas Vitals/I&O/Wt Last Vital Signs Temp 98 F 07/27/19 04:00 Pulse 102 H 07/27/19 04:00 Resp 18 07/27/19 04:00 BP 139/86 07/27/19 04:00 Pulse Ox 97 07/27/19 04:00 07/26/19 07/27/19 07/27/19 22:59 06:59 14:59 Intake Total 100 / 9085.665 8235.5 / 2975.833 Output Total 150 / 150 Balance 100 / 2772.637 6611.5 / 2825.833 Physical Exam Narrative: EXAM NARRATIVE: Patient is conscious alert oriented X3 BMI 26.5 Head and neck examination PERRLA no masses no cervical lymphadenopathy no jaundice Cardiac examination audible S1-S2 no murmurs no gallops no arrhythmias Chest is clear bilateral,abscence of Rhonchi or wheezes,no surgical emphysema Abdomen nontender nondistended soft no organomegaly guarding or rigidity/no signs of peritonitis Extremities no cyanosis no clubbing no edema Data : 07/26/19 05:12 07/27/19 05:05 A&P Assessment and plan (1) Partial small bowel obstruction: We will send the patient for a KUB erect and supine and if there is no much of distention and the gas pattern goes all the way to the colon we will start the patient slowly on clear liquid diet. Strict I's and O's Encourage ambulation Follow on ESR,CRP,CMP and stool studies. We will continue conservative measures for now I would highly recommend to have the patient to be seen by medical weapons electrical engineering officer specializing IBD the sooner the better upon discharge for further evaluation and potential medical management if it is the case. Thank you for consulting general surgery to participate taking care Status: Acute Code(s): K56.600 - Partial intestinal obstruction, unspecified as to cause Attestations Medical Necessity Statement*: Per hospitalist service Time Spent in Patient Care: 16 - 35 minutes (>than 50% of time spent in counselling and/or direct pt care on unit). Coding Level of Care Code Acute Embedded Engineer for [facility] Diagnoses Partial small bowel obstruction K56.600
--- NOTE | 2019-07-27 07:40 | XRR_ITS ---
PROCEDURE INFORMATION: Exam: XR Abdomen, 2 Views Exam date and time: 07/27/2019 7:50 AM Age: 24 years old Clinical indication: Abdominal pain; Generalized; Additional info: Bowel obstruction TECHNIQUE: Imaging protocol: XR of the abdomen. Views: 2 Views. COMPARISON: CT abdomen pelvis con [id number] 07/26/2019 1:30 AM FINDINGS: Gastrointestinal tract: Scattered gas noted within small bowel and colon, to the rectum. There are again loops of small bowel in the mid abdomen which are dilated up to 4 cm, not increased from prior. No evidence of pneumatosis. Intraperitoneal space: No free air. Bones/joints: Unremarkable. XR/XR abdomen min 2V [id number] IMPRESSION: No significant change in appearance of dilated loops of small bowel which may be related to partial obstruction versus ileus. No evidence of pneumatosis or free air.
[2019-07-27 07:44] VITALS: BP 130/85; PULSE 115; RESP 20; TEMP 36.7; O2SAT 99
--- NOTE | 2019-07-27 10:57 | PC.CHAP ---
Pastoral Care Encounter/Spiritual Assessment Type of Contact [] Declined sample maker hand visit [] Patient/Family/Request visit [] Outpatient visit [] Follow-up visit [] Physician referral [] Code/Alert [] Routine visit [] Staff referral [] Actively dying [] Patient sleeping [] Family support [] [] Out of room [] Palliative care [] [] Receiving care in room [] Pre-surgical visit [] Trauma [] Long length of stay [] ICU visit [x] Other:Patient sleeping. Relational/Emotional Strength [] Patient feels connected with others/family/visitors/staff [] Distress [] Loneliness/isolation [] Abandonment Spirituality of Patient [] Person of Shanita [] Attends Faith of their Shanita [] Believes in Prayer [] Reads Bible or Moravian materials [] There are Spiritual issues to be addressed School Fundraising Director Interventions [] Prayer [] Active listening [] Non-anxious presence [] Spiritual/emotional support [] Crisis/trauma care [] Spiritual counseling [] Bereavement support [] Provided bereavement packet [] Provided Bible/devotional materials [] Provided toy/stuffed animal, coloring book to patient or family member [] Provided Communion [] Anointing/[place] [] Salvation [] Completed spiritual assessment [] Other: Impact on Illness or Injury [] Angry [] Fearful [] Anxious [] Often cries [] Exhaustion [] Unable to work [] Unable to attend jew [] Unable to walk/stand [] Unable to read [] Unable to drive [] Unable to eat/drink [] Unable to sleep [] Unable to be with family [] Patient intubated [] Other: Summary Patient sleeping. Follow up with School Fundraising Director needed. Time spent with patient
[2019-07-27 11:19] VITALS: BP 111/74; PULSE 91; RESP 18; TEMP 36.9; O2SAT 97
--- NOTE | 2019-07-27 11:23 | PM.PN ---
Subjective Subjective: Interval history: Patient is doing much better and denies abdominal pain this morning. She is passing gas but had no bowel movement yet. Her NG tube was removed and she was started on clear liquid diet and tolerates it well. Denies being nauseous. Vitals/I&O/Wt Last Vital Signs Temp 98.4 F 07/27/19 11:19 Pulse 91 07/27/19 11:19 Resp 18 07/27/19 11:19 BP 111/74 07/27/19 11:19 Pulse Ox 97 07/27/19 11:19 07/26/19 07/27/19 07/27/19 22:59 06:59 14:59 Intake Total 100 / 3529.323 9614.5 / 2975.833 1120 / 1120 Output Total 150 / 150 Balance 100 / 4827.886 4491.5 / 2825.833 1120 / 1120 Physical Exam Const: COMMON NORMALS: no apparent distress and oriented x3 Resp: COMMON NORMALS: normal respiratory effort and clear to auscultation bilaterally AUSCULTATION: clear to auscultation bilaterally Cardio: COMMON NORMALS: regular rate, regular rhythm and S2 normal heart sound RATE: regular rate RHYTHM: regular rhythm HEART SOUNDS: S2 normal OTHER: No lower extremity edema GI: COMMON NORMALS: normal to inspection, nondistended, normoactive bowel sounds, soft to palpation and non-tender PALPATION: Yes soft Neuro: COMMON NORMALS: oriented x3 and no focal motor deficits Data : 07/26/19 05:12 07/27/19 05:05 A&P Assessment and plan (1) Colitis: Status: Acute Code(s): K52.9 - Noninfective gastroenteritis and colitis, unspecified (2) Partial small bowel obstruction: Status: Acute Code(s): K56.600 - Partial intestinal obstruction, unspecified as to cause (3) Smoker: Status: Acute Code(s): F17.200 - Nicotine dependence, unspecified, uncomplicated Additional A&P Information Sepsis secondary to colitis Partial small bowel obstruction Depression: She is on Abilify Microcytic anemia Old rib fractures seen on CT abdomen PLAN: Continue current monitoring and treatment but will discontinue Zosyn as patient clinically shows improvement with resolution of abdominal pain and stable vitals. Advance diet as tolerated. Encouraged ambulation Appreciate Dr. Giurgius's help. Patient will require further outpatient follow-up with GI specialist for evaluation for Crohn's disease. DVT prophylaxis: Lovenox Active smoker: Counseled on smoking cessation, Full code Attestations Medical Necessity Statement*: Patient with small bowel obstruction signs and symptoms requires close inpatient monitoring and treatment until her GI tract function improves and patient deemed safe for discharge. Coding Level of Care Code Acute Molecular Biology Professor for Chg Fwd Diagnoses Colitis K52.9 Partial small bowel obstruction K56.600 Smoker F17.200
[2019-07-27 15:55] VITALS: BP 124/84; PULSE 108; RESP 20; TEMP 37; O2SAT 97
[2019-07-27] MEDS: enoxaparin 40 mg/0.4 mL Syringe SUBCUT (17:38)
[2019-07-27 20:00] VITALS: BP 113/75; PULSE 106; RESP 24; TEMP 36.9; O2SAT 98
[2019-07-27] MEDS: trazodone 50 mg Tablet 25 MG PO (21:03)
[2019-07-28] VITALS: BP 118/79; PULSE 102; RESP 20; TEMP 36.8; O2SAT 97
[2019-07-28] MEDS: lactated ringers 1,000 ML 150 ML IV (01:37)
[2019-07-28 04:00] VITALS: BP 117/79; PULSE 101; RESP 20; TEMP 36.7; O2SAT 98
[2019-07-28] MEDS: pantoprazole 40 mg SDV IVP (05:00)
--- NOTE | 2019-07-28 05:43 | PM.PN ---
Subjective Subjective: Interval history: Patient continues to do well and tolerating p.o. intake Tested positive for C. difficile and stool studies and started on vancomycin p.o. per hospitalist service Vitals/I&O/Wt Last Vital Signs Temp 98.1 F 07/28/19 04:00 Pulse 101 H 07/28/19 04:00 Resp 20 H 07/28/19 04:00 BP 117/79 07/28/19 04:00 Pulse Ox 98 07/28/19 04:00 07/27/19 07/27/19 07/28/19 14:59 22:59 06:59 Intake Total 2980 / 2980 1000 / 3980 240 / 4220 Balance 2980 / 2980 1000 / 3980 240 / 4220 Physical Exam Narrative: EXAM NARRATIVE: Patient is conscious alert oriented X3 BMI 26.5 Head and neck examination PERRLA no masses no cervical lymphadenopathy no jaundice Abdomen nontender nondistended soft no organomegaly guarding or rigidity/no signs of peritonitis Data : 07/28/19 06:33 07/28/19 06:33 Micro: Microbiology 07/27/19 16:23 Stool Lactoferrin - Final Stool C.difficile Toxin B Gene (PCR) - Final Occult Blood (FIT) - Final A&P Assessment and plan (1) Partial small bowel obstruction: Management of C. difficile vancomycin p.o. for at least 10 days As of now the picture coincides more with C. difficile enterocolitis yet patient should continue to be monitored down the road and she should get the benefit of obtaining diagnostic EGD and colonoscopyin 6 to 8 weeks after subsidence of this episode. Strict I's and O's Encourage ambulation Follow on ESR,CRP,CMP and the remaining of the stool studies. Advance diet as tolerated I am happy to have the patient follow-up with me in 2 weeks after discharge to arrange for the endoscopies and to obtain random biopsies to rule out potential underlying inflammatory bowel disease. Thank you for consulting general surgery to participate taking care Status: Acute Code(s): K56.600 - Partial intestinal obstruction, unspecified as to cause Attestations Medical Necessity Statement*: Medical necessity care is expected to cross 2 midnights Time Spent in Patient Care: 16 - 35 minutes (>than 50% of time spent in counselling and/or direct pt care on unit). Coding Level of Care Code Acute Insurance Marketing Specialist for Curt Fwd Diagnoses Partial small bowel obstruction K56.600
[2019-07-28 06:47] LABS: Basophils % 0.2 %; Eosinophils # 0.1 10^3/uL (0.0-0.8); Eosinophils % 2.3 %; Hematocrit 31.3 % (37.0-47.0); Hemoglobin 9.2 g/dL (11.5-15.3); Lymphocytes # 1.2 10^3/uL (0.8-4.8); Lymphocytes % 20.7 %; Mean Corpuscular HGB Conc 29.4 g/dL (30.0-36.0); Mean Corpuscular Hemoglobin 25.3 pg (28.0-34.0); Mean Platelet Volume 9.3 fL (7.4-10.4); Monocytes # 0.4 10^3/uL (0.2-0.9); Monocytes % 6.7 %; Neutrophils # 4.2 10^3/uL (1.8-7.7); Neutrophils % 69.4 %; Nucleated Red Blood Cells % 0 %; Platelet Count 349 10^3/cmm (130-400); Red Blood Count 3.64 10^6/uL (4.1-5.3); Red Cell Distribution Width 16.6 % (12.1-15.1)
[2019-07-28 07:03] LABS: Alanine Aminotransferase 12 U/L (0-33); Albumin Level 3.2 g/dL (3.5-5.2); Alkaline Phosphatase 58 IU/L (35-105); Anion Gap 10.9 (5-19); Aspartate Amino Transferase 13 U/L (0-32); Blood Urea Nitrogen 3 mg/dL (6-20); Calcium 9.1 mg/dL (8.5-10.5); Carbon Dioxide 31 mmol/L (22-29); Chloride 104 mmol/L (98-107); Creatinine Clr Calc Pharmacy 127.5466; Globulin 3.7 g/dL (1.3-4.6); Glomerular Filtration Rate 121.8 mL/min (90-130); Glucose 103 mg/dL (65-115); Osmolality Calculated 290 mOsm/kg (285-295); Potassium 3.9 mmol/L (3.5-5.1); Sodium 142 mmol/L (136-145); Total Bilirubin 0.3 mg/dL (0.15-1.2); Total Protein 6.9 g/dL (6.6-8.7)
[2019-07-28 08:00] VITALS: BP 116/81; PULSE 101; RESP 20; TEMP 36.9; O2SAT 98
[2019-07-28 11:34] VITALS: BP 118/82; PULSE 106; RESP 18; TEMP 36.6; O2SAT 98
--- NOTE | 2019-07-28 14:49 | PM.DCS ---
Discharge Providers Date of Admission: 07/25/19 02:29 Date of Discharge: July 28, 2019 Attending Provider at Admission: Josiah Rich MD Attending Provider at Discharge: Lory Mcdermott MD Diagnoses at Discharge Discharge Diagnosis (1) Partial small bowel obstruction: Status: Acute Problem details: -NGT removed, +flatus -tolerating oral intake; advanced to GI soft diet -pain control, antiemetics as needed -VSS -no leukocytosis -Surgery consult by Dr. Kaur appreciated (2) Colitis: Status: Acute Problem details: -noted to be C.difficile positive; on oral vancomycin -rest of stool studies negative -will need f/u EGD and colonoscopy in 6-8 weeks Reason for Visit Reason for Visit: Reason For Visit: abd pain Hospital Course Hospital Course: Patient admitted to the medical surgical floor and surgery consulted. She had NGT placed in ED due to noted evidence of partial small bowel obstruction on CT with associated tachycardia and leukocytosis. She started on empiric IV antibiotics as well and kept n.p.o. Stool studies were ordered per surgery recommendations and she was found to be positive for C. difficile. Stool studies otherwise are negative. She has been started on oral vancomycin which she will need to continue for 10 days. There is concern for possible inflammatory bowel disease so she will require follow-up for endoscopy and colonoscopy with appropriate biopsies taken. She has improved significantly in terms of her clinical status, NG tube has been removed, she is passing flatus, pain is controlled, abdominal exam is benign and she is tolerating oral intake without difficulty. She has been afebrile, hemodynamically stable. Discharge Summary: -Patient to follow-up with primary care physician within 1 week -Patient to follow-up with Dr. Kinsey in 6 to 8 weeks to schedule endoscopy and colonoscopy Physical Exam Const: COMMON NORMALS: no apparent distress and oriented x3 GENERAL APPEARANCE: cooperative and comfortable ORIENTATION/CONSCIOUSNESS: Yes awake HENMT: COMMON NORMALS: normocephalic, head/scalp atraumatic, hearing grossly normal bilaterally and moist oral mucous membranes HEAD & SCALP: normocephalic and atraumatic Eye: COMMON NORMALS: PERRL, EOMs intact bilaterally and conjunctivae normal CONJUNCTIVA: Yes conjunctivae normal PUPIL: Yes PERRL Neck/C-Spine: COMMON NORMALS: full ROM GENERAL: Yes normal visual inspection and Yes trachea midline Resp: COMMON NORMALS: normal respiratory effort, no retractions, no use of accessory muscles and clear to auscultation bilaterally EFFORT & INSPECTION: Yes able to speak in complete sentences, Yes symmetric chest movement and No tachypneic AUSCULTATION: clear to auscultation bilaterally Cardio: COMMON NORMALS: regular rate, regular rhythm, S1 normal heart sound, S2 normal heart sound and no murmurs RATE: regular rate RHYTHM: regular rhythm HEART SOUNDS: S1 normal and S2 normal GI: COMMON NORMALS: normal to inspection, nondistended, normoactive bowel sounds, soft to palpation and non-tender PALPATION: Yes soft Extremity: COMMON NORMALS: normal to inspection, full ROM and no clubbing, cyanosis or edema; negative for no pedal edema Neuro: COMMON NORMALS: oriented x3, moves all extremities, no focal motor deficits, no sensory deficits noted and gait normal Psych: COMMON NORMALS: mental status grossly normal, thought process normal, cooperative, affect normal and speech normal SPEECH: Yes normal speech THOUGHT PROCESS: normal thought process Skin: COMMON NORMALS: no rashes or lesions noted, no jaundice, no petechiae and no mottling GENERAL SKIN EXAM: no rashes or lesions noted Discharge Data Data Completed and Pending: Completed Studies During Hospitalization Category Date Time Status CT abdomen pelvis w con* [id number] Urge nt Cat Scan 07/24/19 23:[address] abdomen pelvis wo con [id number] Stat Cat Scan 07/26/19 01:07 Completed XR abdomen min 2V [id number] Urgent Exams 07/27/19 07:40 Completed Pending at discharge Category Date Time Status OVA and Parasites , Conc and PE Rout ine Lab 07/27/19 16:23 Received Labs from last 24 hours 07/28/19 07/28/19 06:33 06:33 WBC 6.0 RBC 3.64 L Hgb 9.2 L Hct 31.3 L MCV 86.0 MCH 25.3 L MCHC 29.4 L RDW 16.6 H Plt Count 349 MPV 9.3 Neut % (Auto) 69.4 Lymph % (Auto) 20.7 [place] % (Auto) 6.7 Eos % (Auto) 2.3 Baso % (Auto) 0.2 Neut # (Auto) 4.2 Lymph # (Auto) 1.2 [place] # (Auto) 0.4 Eos # (Auto) 0.1 Baso # (Auto) 0.0 Nucleated RBC % (a uto) 0 Nucleated RBCs # 0.0 Sodium 142 Potassium 3.9 Chloride 104 Carbon Dioxide 31 H Anion Gap 10.9 BUN 3 L Creatinine 0.6 GFR Calculation 121.8 Glucose 103 Calculated Osmolal ity 290 Calcium 9.1 Total Bilirubin 0.3 AST 13 ALT 12 Alkaline Phosphata se 58 Total Protein 6.9 Albumin 3.2 L Globulin 3.7 Vitals: Last Vital Signs Temp 97.8 F 07/28/19 11:34 Pulse 106 H 07/28/19 11:34 Resp 18 07/28/19 11:34 BP 118/82 07/28/19 11:34 Pulse Ox 98 07/28/19 11:34 Discharge Plan Discharge Patient Disposition: Home, Self-Care Condition: Stable Prescriptions: New vancomycin 125 mg capsule 125 mg PO QID 10 Days Qty: 40 RF: 0 Continued Abilify 15 mg Tablet 15 mg PO BEDTIME RF: 0 Discharge Orders: Discharge Order (Routine); Ordered 07/28/19 Ordered By: Lory Mcdermott Referrals: Lane Kinsey MD [Physician] - 09/01/19 9:15 am (to schedule endoscopy and colonoscopy) Guero Pollack MD [Hospitalist] - 08/04/19 3:00 pm (Post hospital discharge follow up; treated with vancomycin for C.difficile please discuss a gastroenterology consult ) Discharge Diet: GI Soft Discharge Activity: Resume usual activity Patient Instructions: Vancomycin (By mouth), Irritable Bowel Syndrome (DC), Cigarette Smoking and Your Health (GEN), Bowel Obstruction (DC) Discharge Date/Time: 07/28/19 15:48 Discharge Attestations Time Spent in Discharge Care*: greater than 30 min Specific Discharge Activities: Specific discharge activities: educating patient, educating and/or supporting family/caregiver, discussing with pcp/other providers, documenting/other paperwork and evaluating patient/reviewing data Status at Discharge: Cognitive status at discharge: cognitively intact, Behavioral status at discharge: cooperative, Functional status at discharge: independent ambulation Overall status at discharge: patient is back to baseline Quality Metrics Clinical Quality Measures During this hospital stay, did patient experience: None Coding Level of Care Code Acute Licensed Practical Nurse Clinic Nurse for [facility] Fwd Exam Comprehensive Diagnoses Partial small bowel obstruction K56.600 Colitis K52.9
[2019-07-28 15:05] VITALS: BP 118/82; PULSE 106; RESP 18; TEMP 36.6; O2SAT 98
[2019-07-28 15:47] VITALS: BP 118/82; PULSE 106; RESP 18; TEMP 36.6; O2SAT 98
== END 2019-07-28 15:48 | disposition home or self-care (01) | DRG 372 ==
LOC: ER 07-25 01:45 → MEDSURG 07-25 03:51
PROVIDERS: Emergency Medicine; Internal Medicine; Admitting Provider Internal Medicine; Emergency Provider Nurse Practitioner Family; Visit Provider Family Medicine
DX: A04.72 Enterocolitis due to Clostridium difficile, not specified as recurrent (principal); K56.600 Partial intestinal obstruction, unspecified as to cause; F17.210 Nicotine dependence, cigarettes, uncomplicated; F32.9 Major depressive disorder, single episode, unspecified; Z79.2 Long term (current) use of antibiotics
CPT/HCPCS: 12345; 36415; 74019; 74176; 74177; 80053; 80306; 81001; 81025; 82274; 83605; 83630; 83690; 85025; 87177; 87209; 87493; 87505; 96372; 96375; 99284; C9113; J1170; J1650; J1885; J2270; J2543; J3370; J7030; J7050; J7799; Q9967

== ENCOUNTER 2019-11-26 12:32 | Emergency (ER) | payer SELFPAY ==
[2019-11-26 12:37] VITALS: BP 129/76; PULSE 121; RESP 16; TEMP 36.3; O2SAT 97; BMI 32.3
--- NOTE | 2019-11-26 12:46 | W.ED.GENADLT ---
HPI - General Adult General: Chief complaint: General Medical Stated complaint: TAILBONE PAIN/KNOT Time Seen by Provider: 11/26/19 12:36 History of Present Illness: HPI narrative: Patient woke appears to have a sore area up above her tailbone. complaint: Abscess Onset (ago): day(s) (1) Location: buttocks Radiation: non-radiation Severity: moderate Severity scale (1-10): 3 Quality: aching Pain Consistency: constant Associated symptoms: Deny chest pain, dyspnea, headache(s), nausea, rash or vomiting Review of Systems Const: Denies: fever(s), chills or body aches Eyes: Denies: change in vision or blurry vision ENMT: Denies: throat pain or nasal congestion Card: Denies: chest pain or dyspnea on exertion Resp: Denies: dyspnea, productive cough or non-productive cough GI: Denies: abdominal pain, nausea or vomiting Musc: Denies: extremity pain Skin/Breast: Reports: other (Sore area up to the top of her crack between the buttocks); Denies: rash Neuro: Denies: headache(s) Psych: Denies: anxiety or depression Beni/Lymph: Denies: easy bruising PFSH ED PFSH: Medical History (Updated 09/01/19 @ 11:27 by Kp Trammell MD) Cannabis use disorder, mild, abuse Depression 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 Self-injurious behavior Smoker Suicidal ideation Surgical History No pertinent past surgical history Family History Father Psychiatric illness Schizophrenia, Unknown Psychiatric illness 2 of her cousins committed suicide Denies family history of CAD (coronary artery disease) Clotting disorder Chronic kidney disease (CKD) Cancer Social History Smoking and tobacco status: current every day smoker cigarettes Packs smoked per day: 0.5 Years cigarettes smoked: 6 Quit status (tobacco): has tried quititng Number of times tried to quit tobacco: 1 Second hand smoke exposure: No Smoking risk assessment/counseling performed?: Yes Tobacco counseling given: counseling >3 minutes Alcohol intake: never Household members: family Housing: House Female Reproductive History: Date of last menstrual period: 07/25/19 Physical Exam Const: COMMON NORMALS: no acute distress, average body habitus and patient oriented x3 HENMT: COMMON NORMALS: normocephalic HEAD & SCALP: normal to inspection and normocephalic FACE & SINUS: normal facial exam Eye: COMMON NORMALS: conjunctivae normal GENERAL EYE: appearance normal, both eyes and all related structures CONJUNCTIVA: Yes conjunctivae normal Neck/C-Spine: COMMON NORMALS: no JVD Chest: COMMONS NORMALS: normal inspection of the chest Resp: COMMON NORMALS: normal respiratory effort Cardio: COMMON NORMALS: no JVD RHYTHM: other (Tacky) GI: COMMON NORMALS: Normal to inspection, nondistended, normoactive bowel sounds present Extremity: COMMON NORMALS: normal to inspection and full ROM Neuro: COMMON NORMALS: patient oriented x3 Skin: GENERAL SKIN EXAM: erythema (Patient is a small area of erythema and possible abscess at the top of her crack between the buttocks more on the left part of the buttocks tender to touch patient does not want it lanced) Course Vital Signs: Vital signs: Vital Signs Temperature 97.3 F L 11/26/19 12:37 Pulse Rate 121 H 11/26/19 12:37 Respiratory Rate 16 11/26/19 12:37 Blood Pressure 129/76 11/26/19 12:37 Pulse Oximetry 97 11/26/19 12:37 MDM - General Adult MDM Narrative: Medical decision making narrative: Patient small abscess that she does not want lanced presently want to try antibiotics and pain medicine Discharge Plan Discharge Prescriptions: No Action fluoxetine 20 mg capsule 20 mg PO DAILY Qty: 30 RF: 2 Abilify 15 mg tablet 15 mg PO BEDTIME Qty: 30 RF: 2 Coding Level of Care Code ED Portrait Photographer for Chg Fwd Exam Comprehensive
[2019-11-26 13:07] VITALS: BP 119/78; PULSE 130; RESP 20; O2SAT 98
--- NOTE | 2019-11-26 13:08 | PC.NURSE ---
INFORMED TRACIE OF HR OF 130 BPM VERBALIZED UNDERSTANDING AND VO TO CONTINUE WITH DC.
== END 2019-11-26 13:10 | disposition home or self-care (01) ==
LOC: ER 13:08
PROVIDERS: Emergency Provider Nurse Practitioner Family
DX: L02.31 Cutaneous abscess of buttock (principal); F17.210 Nicotine dependence, cigarettes, uncomplicated
CPT/HCPCS: 12345; 99281

== ENCOUNTER 2021-03-02 00:04 | Emergency (ER) | payer SELFPAY ==
[2021-03-02 00:10] VITALS: BP 128/83; PULSE 109; RESP 18; TEMP 36.8; O2SAT 100; BMI 32.9
--- NOTE | 2021-03-02 00:10 | PC.NURSE ---
Moved pt from triage to room 5 in [address] with sitter. 1:1 obs. Pt denies SI/HI. It's just these voices
--- NOTE | 2021-03-02 00:36 | ED_ITS ---
HPI - Psych General: Chief Complaint: Psychiatric Symptoms Stated Complaint: Hearing voices Time Seen by Provider: 03/02/21 00:32 Source: patient Mode of arrival: ambulatory Limitations: no limitations History of Present Illness: HPI Narrative: 25-year-old female who has a history of hallucinations. States she used to be on Abilify but ran out of her prescriptions and her states her hallucinations have worsened slightly. She denies any suicidal homicidal thoughts. Patient is able answer all my questions appropriately here she denies any increased anxiety she states that she just wants her Abilify restarted and she would like a shot of Haldol. Associated symptoms: Reports auditory hallucinations Review of Systems Const: Denies: fever(s), chills, body aches or change in appetite Eyes: Denies: blurry vision or eye discomfort ENMT: Denies: throat pain or dental pain Card: Denies: chest pain Resp: Denies: dyspnea GI: Denies: abdominal pain, nausea, vomiting or diarrhea : Denies: dysuria Musc: Denies: neck pain or back pain Skin/Breast: Denies: rash Neuro: Denies: headache(s) Psych: Reports: auditory hallucinations Beni/Lymph: Denies: easy bruising All/Imm: Denies: urticaria PFSH ED PFSH: Medical History Cannabis use disorder, mild, abuse Depression 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 Self-injurious behavior Smoker Suicidal ideation Surgical History No pertinent past surgical history Family History Father Psychiatric illness Schizophrenia, Unknown Psychiatric illness 2 of her cousins committed suicide Denies family history of CAD (coronary artery disease) Clotting disorder Chronic kidney disease (CKD) Cancer Social History Smoking and tobacco status: current every day smoker cigarettes Packs smoked per day: 0.5 Years cigarettes smoked: 6 Quit status (tobacco): has tried quititng Number of times tried to quit tobacco: 1 Second hand smoke exposure: No Smoking risk assessment/counseling performed?: Yes Tobacco counseling given: counseling >3 minutes Alcohol intake: never Household members: family Housing: House Marital status details: She is a single mother of 5 children, Current gender identity: Female Female Reproductive History: Date of last menstrual period: 01/26/21 Physical Exam Const: COMMON NORMALS: no acute distress, patient oriented x3 and healthy appearing HENMT: COMMON NORMALS: normocephalic and atraumatic HEAD & SCALP: normocephalic and atraumatic Eye: COMMON NORMALS: Equal, round and reactive pupils present and EOMs intact bilaterally PUPIL: Yes Equal, round and reactive pupils present Neck/C-Spine: COMMON NORMALS: full ROM and supple Chest: COMMONS NORMALS: normal inspection of the chest and normal palpation of entire chest wall Resp: COMMON NORMALS: normal respiratory effort, No retractions, No use of accessory muscles and clear to auscultation bilaterally AUSCULTATION: clear to auscultation bilaterally Cardio: COMMON NORMALS: regular rate, regular rhythm and No murmurs present (Cardio) RATE: regular rate RHYTHM: regular rhythm GI: COMMON NORMALS: Normal to inspection, nondistended, normoactive bowel sounds present, Soft to palpation, non-tender and no masses PALPATION: Yes Soft to palpation Extremity: COMMON NORMALS: normal to inspection and full ROM Neuro: COMMON NORMALS: patient oriented x3, moves all extremities and no focal motor deficits Psych: COMMON NORMALS: mental status grossly normal, Normal thought process present and cooperative THOUGHT PROCESS: Normal thought process present Skin: COMMON NORMALS: no rashes or lesions noted and no wounds GENERAL SKIN EXAM: no rashes or lesions noted Course Vital Signs: Vital signs: Vital Signs Temperature 98.3 F 03/02/21 00:10 Pulse Rate 109 H 03/02/21 00:10 Respiratory Rate 18 03/02/21 00:10 Blood Pressure 128/83 03/02/21 00:10 Pulse Oximetry 100 03/02/21 00:10 MDM - Psych MDM Narrative: Medical decision making narrative: Patient presents with auditory hallucinations with long history of that as well. Patient has been off of her Abilify and I will restart her on her Abilify she also requested a Haldol as it helped in the past. I spoke to her at length and she denies any suicidality or homicidality. I did offer admission to the psych unit she states she feels like her hallucinations are not that bad she just needs to restart Abilify and she will follow up with a behavioral health clinic. I feel she is stable for discharge and is not a threat to herself or others she is return if worsening she understands agrees to plan. Discharge Plan Discharge Patient Disposition: Home Clinical Impression: Auditory hallucination Condition: Stable Prescriptions: Continued Abilify 15 mg tablet 15 mg PO BEDTIME Qty: 30 RF: 2 No Action fluoxetine 20 mg capsule 20 mg PO DAILY Qty: 30 RF: 2 tramadol 50 mg tablet 50 mg PO Q6H PRN (Reason: pain) Qty: 14 RF: 0 Discharge Orders: Discharge ED (Routine); Ordered 03/02/21 Ordered By: Jen Blankenship Discharge Diet: Advance as tolerated Discharge Activity: Resume usual activity Patient Instructions: Hallucinations (ED) Coding Level of Care Code ED Ultrasonic Welding Machine Operator for Curt Elder
[2021-03-02] MEDS: haloperidol inj 5 mg/mL INJ 1 mL IM (00:41)
[2021-03-02 01:03] VITALS: RESP 16
--- NOTE | 2021-03-02 14:37 | DCPLANNER ---
associate store manager had message to speak with patient about services at [facility]. associate store manager called phone number [phone], unable to speak with patient at this time. A recording stated that the number dialed has been changed, disconnected or no longer in service. associate store manager was unable to speak with patient or leave a voicemail for patient.
== END 2021-03-02 00:40 | disposition home or self-care (01) ==
PROVIDERS: Emergency Provider Emergency Medicine
DX: R44.0 Auditory hallucinations (principal); F17.210 Nicotine dependence, cigarettes, uncomplicated
CPT/HCPCS: 96372; 99282; J1630

== ENCOUNTER 2021-11-16 07:20 | Emergency (ER) | payer MEDICAID, SELFPAY ==
[2021-11-16 07:39] VITALS: BP 139/84; PULSE 125; RESP 20; TEMP 37.2; O2SAT 99
[2021-11-16 08:10] VITALS: BP 131/105; RESP 16; O2SAT 100
--- NOTE | 2021-11-16 08:14 | ED_ITS ---
HPI - Abdominal Pain General: Chief Complaint: Abdominal Pain Stated Complaint: abd pain Time Seen by Provider: 11/16/21 07:27 Source: patient and family Mode of arrival: ambulatory Limitations: no limitations History of Present Illness: Patient is a 26-year-old female who presents to ED today with a complaint of significant abdominal pains that began yesterday evening. Patient tells me she does have a history of a small bowel obstruction that presented similarly. She states starting this morning she has had repetitive episodes of emesis. She does states she is passing flatulence and stool although reports some mild constipation. She has not been running fevers. She has no urinary complaints. No previous abdominal surgeries. MD elicited complaint: abdominal pain Pertinent past history: other (SBO) Onset (ago): day(s) (yesterday) Pain Consistency: constant Location: Diffuse Severity: severe Quality: cramping Radiation: none Migration to: no migration Exacerbating factors: eating Relieving factors: nothing Associated Symptoms: Reports nausea and vomiting; Denies chills, diarrhea, dysuria, fever(s), heartburn, hematuria, hematemesis and syncope Related Data: Date of Last Menstrual Period: 10/31/21 Patient : No Review of Systems Const: Denies: fever(s), chills, body aches, fatigue or malaise Eyes: Denies: change in vision or blurry vision Card: Denies: chest pain, palpitations, irregular heart rhythm, lightheadedness, syncope or dyspnea on exertion Resp: Denies: dyspnea, productive cough or pain on inspiration GI: Reports: abdominal pain, nausea and vomiting; Denies: hematemesis, heartburn or diarrhea : Denies: flank pain, dysuria or hematuria Musc: Denies: neck pain, back pain, extremity pain or joint pain Skin/Breast: Denies: rash Neuro: Denies: headache(s), numbness in extremities, weakness in extremities, sensory changes or dizziness PFSH ED PFSH: Medical History Cannabis use disorder, mild, abuse Depression 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 Self-injurious behavior Smoker Suicidal ideation Surgical History No pertinent past surgical history Family History Father Psychiatric illness Schizophrenia, Unknown Psychiatric illness 2 of her cousins committed suicide Denies family history of CAD (coronary artery disease) Clotting disorder Chronic kidney disease (CKD) Cancer Social History Smoking and tobacco status: current every day smoker cigarettes Packs smoked per day: 0.5 Years cigarettes smoked: 6 Quit status (tobacco): has tried quititng Number of times tried to quit tobacco: 1 Second hand smoke exposure: No Smoking risk assessment/counseling performed?: Yes Tobacco counseling given: counseling >3 minutes Alcohol intake: never Household members: family Housing: House Marital status details: She is a single mother of 5 children, Current gender identity: Female Female Reproductive History: Date of last menstrual period: 10/31/21 Physical Exam Const: COMMON NORMALS: no acute distress, patient oriented x3, no limitations and alert GENERAL APPEARANCE: cooperative NUTRITIONAL APPEARANCE: overweight ORIENTATION/CONSCIOUSNESS: Yes awake, Yes oriented to person, Yes oriented to place and Yes oriented to time HENMT: COMMON NORMALS: normocephalic and atraumatic HEAD & SCALP: normal to inspection, normocephalic and atraumatic Resp: COMMON NORMALS: normal respiratory effort and clear to auscultation bilaterally AUSCULTATION: clear to auscultation bilaterally Cardio: COMMON NORMALS: regular rhythm RATE: tachycardic RHYTHM: regular rhythm GI: COMMON NORMALS: No hepatosplenomegaly present and no masses INSPECTION: Yes normal to inspection AUSCULTATION: Yes normoactive bowel sounds PALPATION: Yes Tenderness to palpation present (GI) (very mild tenderness to periumbilical region; no guarding/rigidity ), No Guarding due to palpation present (GI), No Rigid due to palpation and Yes No hepatosplenomegaly present : COMMON NORMALS: Yes no CVA tenderness BLADDER/KIDNEY EXAM: Yes no CVA tenderness Back/Pelvis: COMMON NORMALS: no CVA tenderness, thoracic and lumbar spine normal to inspection, no thoracic nor lumbar tenderness and thoraco-lumbar ROM normal Extremity: COMMON NORMALS: normal to inspection GENERAL: Yes normal exam except as noted Neuro: ALYSON COMA SCALE: document GCS findings Alyson coma scale eye ope cole: Spontaneous [place] coma scale verbal response: Orientated [place] coma scale motor response: Obey commands Alyson coma scale total score: 15 COMMON NORMALS: patient oriented x3, moves all extremities, no focal motor deficits and no sensory deficits noted SENSORIUM/ORIENTATION: Yes alert, Yes oriented to person, Yes oriented to place and Yes oriented to time Skin: COMMON NORMALS: no rashes or lesions noted GENERAL SKIN EXAM: no rashes or lesions noted Course Vital Signs: Vital signs: Vital Signs Temperature 98.1 F 11/16/21 08:56 Pulse Rate 109 H 11/16/21 08:56 Respiratory Rate 16 11/16/21 09:09 Blood Pressure 154/97 11/16/21 08:56 Pulse Oximetry 98 11/16/21 08:56 MDM - Abdominal Pain Medical Decision Making Patient appears in no acute distress. She was tachycardic upon arrival but this has improved. Blood work shows her white count is 10.7. She does have chronic microcytic anemia that seems to be at her baseline. Her chemistry is unremarkable. UA is not overly suspicious for UTI. Patient CT scan does not show any bowel obstruction. She does have moderate fecal retention. Dr. Hugo stated there was a solitary gallstone present without any findings suggestive of cholecystitis. She has no right upper quadrant pain on exam. She was also noted to have a hemorrhagic right ovarian cyst. Patient is not having any right pelvic pain. At this time patient will be discharged home with instructions for bowel rest, bland/liquid diet, will give her antiemetics that she can use as needed. Recommend she follow-up with primary care in 2 to 3 days for reevaluation. Return to ED precautions verbally discussed. Lab Data : 11/16/21 08:34 11/16/21 08:34 Labs/Radiology: Radiology Impressions Abdomen/Pelvis CT 11/16/21 08:16 IMPRESSION: 1. Cholelithiasis. Gallbladder is contracted and otherwise normal in appeara nce. 2. Hemorrhagic appearing RIGHT ovarian cyst measuring 3.2 x 2.9 cm. This can be followed up with ultrasound in one to 2 menstrual cycles. Associated small amount of free fluid in the pelvis. 3. Moderate fecal retention RIGHT colon and transverse colon. No evidence of small or large bowel obstruction. 4. No other acute findings. Notified CRISTEL Montejo at 11/16/2021 10:00 AM. Laboratory Results WBC 10.7 10^3/uL (4.0-10.0) H 07/06/22 08:34 RBC 4.57 10^6/uL (4.1-5.3) 11/16/21 08:34 Hgb 9.3 g/dL (11.5-15.3) L 11/16/21 08:34 Hct 32.5 % (37.0-47.0) L 11/16/21 08:34 MCV 71.1 fl (81-99) L 11/16/21 08:34 MCH 20.4 pg (28.0-34.0) L 11/16/21 08:34 MCHC 28.6 g/dL (30.0-36.0) L 11/16/21 08:34 RDW 20.3 % (12.1-15.1) H 11/16/21 08:34 Plt Count 269 10^3/cmm (130-400) 11/16/21 08:34 MPV 10.4 fL (7.4-10.4) 11/16/21 08:34 Lymph % (Auto) Not Reportable 11/16/21 08:34 Isabela % (Auto) Not Reportable 11/16/21 08:34 Lymph # (Auto) Not Reportable 11/16/21 08:34 Isabela # (Auto) Not Reportable 11/16/21 08:34 Total Counted 100 (0-100) 11/16/21 08:34 Atypical Lymphs % 6.0 % (0-5) H 11/16/21 08:34 Absolute Neutrophils 5.8 10^3/cmm (1.4-6.5) 11/16/21 08:34 Segmented Neutrophils 50 % 11/16/21 08:34 Abs Segm Neuts (Man) 5.4 10/cmm (1.6-7.1) 11/16/21 08:34 Band Neutrophils 4.0 % 11/16/21 08:34 Abs Band Neuts (Man) 0.4 10^3/cmm (0.0-1.2) 11/16/21 08:34 Absolute Lymphocytes 4.2 10^3/cmm (1.2-3.4) H 11/16/21 08:34 Lymphocytes (Manual) 33 % 11/16/21 08:34 Monocytes (Manual) 5.0 % 11/16/21 08:34 Absolute Monocytes 0.5 10^3/cmm (0.1-0.6) 11/16/21 08:34 Eosinophils (Manual) 2 % 11/16/21 08:34 Absolute Eosinophils 0.2 10^3/cmm (0.0-0.7) 11/16/21 08:34 Basophils (Manual) Not Reportable 11/16/21 08:34 Smudge Cells Trace 11/16/21 08:34 Platelet Estimate Normal (Normal) 11/16/21 08:34 Giant Platelets Trace 11/16/21 08:34 Polychromasia Trace 11/16/21 08:34 Hypochromasia Trace 11/16/21 08:34 Anisocytosis 2+ H 11/16/21 08:34 Microcytosis 1+ H 11/16/21 08:34 Macrocytosis 1+ H 11/16/21 08:34 Ovalocytes Trace 11/16/21 08:34 Sodium 134 mmol/L (136-145) L 11/16/21 08:34 Potassium 4.2 mmol/L (3.5-5.1) 11/16/21 08:34 Chloride 101 mmol/L (98-107) 11/16/21 08:34 Carbon Dioxide 20 mmol/L (22-29) L 11/16/21 08:34 Anion Gap 17.2 (5-19) 11/16/21 08:34 BUN 12 mg/dL (6-20) 11/16/21 08:34 Creatinine 0.7 mg/dL (0.5-0.9) 11/16/21 08:34 GFR Calculation 100.4 mL/min (90-130) 11/16/21 08:34 Glucose 105 mg/dL (65-115) 11/16/21 08:34 Calculated Osmolality 278 mOsm/kg (285-295) L 11/16/21 08:34 Lactic Acid 1.2 mmol/L (0.5-2.2) 11/16/21 08:34 Calcium 8.5 mg/dL (8.5-10.5) 11/16/21 08:34 Total Bilirubin 0.4 mg/dL (0.15-1.2) 11/16/21 08:34 AST 24 U/L (0-32) 11/16/21 08:34 ALT 26 U/L (0-33) 11/16/21 08:34 Alkaline Phosphatase 63 IU/L (35-105) 11/16/21 08:34 Total Protein 7.8 g/dL (6.6-8.7) 11/16/21 08:34 Albumin 4.2 g/dL (3.5-5.2) 11/16/21 08:34 Globulin 3.6 g/dL (1.3-4.6) 11/16/21 08:34 Lipase 20 U/L (13-60) 11/16/21 08:34 HCG, Qual Negative (Negative) 11/16/21 08:59 Urine Color Yellow (Yellow) 11/16/21 09:30 Urine Appearance Clear (CLEAR) 11/16/21 09:30 Urine pH 5 (5-7) 11/16/21 09:30 Ur Specific [place] 1.025 (1.005-1.030) 11/16/21 09:30 Urine Protein Neg (Negative) 11/16/21 09:30 Urine Glucose (UA) Norm (Normal) 11/16/21 09:30 Urine Ketones Negative (Negative) 11/16/21 09:30 Urine Blood Neg (Negative) 11/16/21 09:30 Urine Nitrate Negative (Negative) 11/16/21 09:30 Urine Bilirubin Neg (Negative) 11/16/21 09:30 Urine Urobilinogen Norm mg/dL (Negative) 11/16/21 09:30 Ur Leukocyte Esterase Trace (Negative) H 11/16/21 09:30 Urine RBC 0-4 /hpf (0-2) H 11/16/21 09:30 Urine WBC 0-4 /hpf (0-5) H 11/16/21 09:30 Ur Squamous Epith Cells 10-15 /hpf (0-5) H 11/16/21 09:30 Amorphous Sediment 1+ /hpf 11/16/21 09:30 Urine Bacteria Trace /hpf (NONE) 11/16/21 09:30 Urine Mucus 2+ /hpf 11/16/21 09:30 Discharge Plan Discharge Condition: Stable Prescriptions: No Action No Known Home Medications 0RF Coding Level of Care Code ED Inserter Promotional Item for Chg Fwd Exam Comprehensive
--- NOTE | 2021-11-16 08:16 | CT_ITS ---
WS: [id number] CT ABDOMEN PELVIS TECHNIQUE: Noncontrast CT of the abdomen and pelvis with coronal and sagittal reformatted images. CLINICAL INFORMATION: abdominal pain, N/V COMPARISON: None. DLP: 1091.[address] scans at [facility] use at least one of these dose optimization techniques: automated e xposure control; mA and/or kV adjustment per patient size (includes targeted exams where dose is matc hed to clinical indication); or iterative reconstruction. FINDINGS: Lung bases are well aerated. Noncontrast liver is normal. Cholelithiasis. Gallbladder is contracted. Normal GE junction. Normal noncontrast spleen. Adrenal glands are normal. No hydronephrosis in either kidney. No obstructing renal or ureteral calculi. Noncontrast pancreas is normal. Hemorrhagic appearing RIGHT ovarian cyst measuring 3.2 x 2.9 CM. Smal l amount of free fluid in the adjacent pelvis. Normal sigmoid colon. No evidence of small or large lenora wel obstruction. Fecal retention RIGHT colon and transverse colon. Normal appendix in the RIGHT lower quadrant. No evidence of acute appendicitis. Tiny fat-containing umbilical hernia. Normal lumbar spi ne. CT/CT abdomen pelvis wo con [id number] IMPRESSION: 1. Cholelithiasis. Gallbladder is contracted and otherwise normal in appearanc e. 2. Hemorrhagic appearing RIGHT ovarian cyst measuring 3.2 x 2.9 cm. This can b e followed up with ultrasound in one to 2 menstrual cycles. Associated small am ount of free fluid in the pelvis. 3. Moderate fecal retention RIGHT colon and transverse colon. No evidence of s mall or large bowel obstruction. 4. No other acute findings. Notified CRISTEL Montejo at 11/16/2021 10:00 AM.
--- NOTE | 2021-11-16 08:31 | PC.PHAR ---
PT STATES SHE TAKES NO RX OR OTC MEDICATIONS-PT STATES SHE USE TO TAKE RX MEDS BUT HASNT TAKEN IN MONTHS
[2021-11-16 08:42] LABS: Hematocrit 32.5 % (37.0-47.0); Hemoglobin 9.3 g/dL (11.5-15.3); Mean Corpuscular HGB Conc 28.6 g/dL (30.0-36.0); Mean Corpuscular Hemoglobin 20.4 pg (28.0-34.0); Mean Corpuscular Volume 71.1 fl (81-99); Red Blood Count 4.57 10^6/uL (4.1-5.3); White Blood Count 10.7 10^3/uL (4.0-10.0)
[2021-11-16 08:43] LABS: Mean Platelet Volume 10.4 fL (7.4-10.4); Platelet Count 269 10^3/cmm (130-400); Red Cell Distribution Width 20.3 % (12.1-15.1)
[2021-11-16 08:56] VITALS: BP 154/97; PULSE 109; RESP 16; TEMP 36.7; O2SAT 98
[2021-11-16 09:07] LABS: Alanine Aminotransferase 26 U/L (0-33); Albumin Level 4.2 g/dL (3.5-5.2); Alkaline Phosphatase 63 IU/L (35-105); Anion Gap 17.2 (5-19); Aspartate Amino Transferase 24 U/L (0-32); Blood Urea Nitrogen 12 mg/dL (6-20); Calcium 8.5 mg/dL (8.5-10.5); Carbon Dioxide 20 mmol/L (22-29); Chloride 101 mmol/L (98-107); Globulin 3.6 g/dL (1.3-4.6); Glomerular Filtration Rate 100.4 mL/min (90-130); Glucose 105 mg/dL (65-115); Lipase 20 U/L (13-60); Osmolality Calculated 278 mOsm/kg (285-295); Potassium 4.2 mmol/L (3.5-5.1); Sodium 134 mmol/L (136-145); Total Bilirubin 0.4 mg/dL (0.15-1.2); Total Protein 7.8 g/dL (6.6-8.7)
[2021-11-16] MEDS: ondansetron 2 mg/ML SDV 2 mL 4 MG IVP (09:08)
[2021-11-16 09:09] VITALS: RESP 16
[2021-11-16 09:09] LABS: Lactic Sepsis W/Reflex 1.2 mmol/L (0.5-2.2)
[2021-11-16] MEDS: morphine 4 mg/mL SDV 1 mL IVP (09:09)
[2021-11-16 09:20] LABS: HCG, Serum Qual Negative (Negative)
[2021-11-16 09:26] LABS: Slide Review Slide Review Perform
[2021-11-16 09:27] LABS: Absolute Eosinophils 0.2 10^3/cmm (0.0-0.7); Absolute Neutrophil 5.8 10^3/cmm (1.4-6.5); Absolute Segmented Neutrophil 5.4 10/cmm (1.6-7.1); Anisocytosis 2+; Band Neutrophils Absolute 0.4 10^3/cmm (0.0-1.2); Eosinophils 2 %; Giant Platelets Trace; Hypochromasia Trace; Lymphocytes 33 %; Lymphocytes Absolute 4.2 10^3/cmm (1.2-3.4); Macrocytosis 1+; Microcytosis 1+; Monocytes Absolute 0.5 10^3/cmm (0.1-0.6); Platelet Estimate Normal (Normal); Polychromasia Trace; Segmented Neutrophils 50 %; Total Cells Counted 100 (0-100)
[2021-11-16 09:28] LABS: Ovalocytes Trace; Smudge Cells Trace
[2021-11-16 10:00] LABS: Add Urine Microscopic? YES; Bilirubin Urine Neg (Negative); Blood Urine Neg (Negative); Glucose Urine UA Norm (Normal); Ketones Urine Negative (Negative); Leukocyte Esterase Urine Trace (Negative); Nitrate Urine Negative (Negative); Protein Urine Neg (Negative); Specific Gravity, Urine 1.025 (1.005-1.030); Urine Appearance Clear (CLEAR); Urine Color Yellow (Yellow); Urobilinogen Urine Norm (Negative); pH Urine 5 (5-7)
[2021-11-16 10:03] LABS: Bacteria Urine TRACE /hpf; Mucus Urine 2+ /hpf; RBC Urine 0-4 /hpf (0-2); WBC Urine 0-4 /hpf (0-5)
[2021-11-16 10:04] LABS: Add Urine Culture? No; Amorphous Sediment Urine 1+ /hpf
[2021-11-16 10:30] VITALS: BP 122/94; PULSE 108; RESP 16; TEMP 36.7; O2SAT 99
--- NOTE | 2021-11-25 09:49 | DCPLANNER ---
Addendum entered by Deysi Kwan 11/30/21 14:45: Patient returned counseling case manager phone call. strategic marketing manager called patient back, unable to speak with patient, left a voicemail for patient to return counseling case manager phone call. Original Note: strategic marketing manager had message to speak with patient about getting established with a primary care physician. strategic marketing manager called phone number [phone]. strategic marketing manager unable to speak with patient, a voicemail was left for patient to return counseling case manager phone call.
== END 2021-11-16 10:32 | disposition home or self-care (01) ==
PROVIDERS: Emergency Provider Physician Assistant
DX: N83.201 Unspecified ovarian cyst, right side (principal); K80.20 Calculus of gallbladder without cholecystitis without obstruction
CPT/HCPCS: 74176; 80053; 81001; 83605; 83690; 84703; 85007; 85025; 96374; 96375; 99284; J2270; J2405

== ENCOUNTER 2022-02-20 17:33 | Emergency (ER) | payer MEDICAID, SELFPAY ==
[2022-02-20 17:44] VITALS: BP 132/100; PULSE 110; RESP 16; TEMP 36.8; O2SAT 100; BMI 27.4
--- NOTE | 2022-02-20 17:51 | ED.C_ITS ---
HPI - Psych General: Chief Complaint: Psychiatric Symptoms Stated Complaint: Psych Eval Time Seen by Provider: 02/20/22 17:51 History of Present Illness: Patient comes in today for concerns of hearing voices. Patient reports that the voices distress or because she knows are not there. Patient denies any homicidal or suicidal thoughts. Patient does report to smoking marijuana but no other drug use. Patient also uses tobacco. Patient had been prescribed Abilify in the past but had gone off the Abilify in the last couple months due to no hallucinations and she thought she could. Since going off the Abilify the voices had started to return. Patient does not feel she needs admitted to stress unit at this time. Patient is cooperative, and follows commands without difficulty. Patient is well-kempt. 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 Self-injurious behavior Smoker Suicidal ideation Surgical History No pertinent past surgical history Family History Father Psychiatric illness Schizophrenia, Unknown Psychiatric illness 2 of her cousins committed suicide Denies family history of CAD (coronary artery disease) Clotting disorder Chronic kidney disease (CKD) Cancer Social History Smoking and tobacco status: current every day smoker cigarettes Packs smoked per day: 0.5 Years cigarettes smoked: 6 Quit status (tobacco): has tried quititng Number of times tried to quit tobacco: 1 Second hand smoke exposure: No Smoking risk assessment/counseling performed?: Yes Tobacco counseling given: counseling >3 minutes Alcohol intake: never Household members: family Housing: House Marital status details: She is a single mother of 5 children, Current gender identity: Female Female Reproductive History: Date of last menstrual period: 10/31/21 Physical Exam Const: COMMON NORMALS: alert GENERAL APPEARANCE: well kempt HENMT: COMMON NORMALS: normocephalic HEAD & SCALP: normocephalic Neck/C-Spine: COMMON NORMALS: full ROM Resp: COMMON NORMALS: normal respiratory effort Cardio: COMMON NORMALS: regular rate RATE: regular rate GI: COMMON NORMALS: non-tender Extremity: COMMON NORMALS: normal to inspection and no pedal edema Neuro: SENSORIUM/ORIENTATION: Yes alert Psych: COMMON NORMALS: Normal thought process present, cooperative and speech normal APPEARANCE: Yes well kempt ATTITUDE: Yes calm ACTIVITY/MOTOR BEHAVIOR: Yes appropriate eye contact SPEECH: Yes normal speech THOUGHT PROCESS: Normal thought process present THOUGHT CONTENT: No Suicidality present and No Homicidality present INSIGHT: Fair insight present (Psych) JUDGEMENT: Fair judgement present (Psych) Course Vital Signs: Vital signs: Vital Signs Temperature 98.3 F 02/20/22 17:44 Pulse Rate 110 H 02/20/22 17:44 Respiratory Rate 16 02/20/22 17:44 Blood Pressure 132/100 02/20/22 17:44 Pulse Oximetry 100 02/20/22 17:44 Oxygen Delivery Me thod 02/20/22 17:44 [facility] - Psych Medical Decision Making 26-year-old female comes in today for being without her Abilify and starting to have hallucinations. Patient appears nontoxic. Patient appears in no acute distress. Respirations are even lungs are clear to auscultation. Abdomen soft nontender. Vital signs are normal except for some elevation in blood pressure and pulse. Patient denied any methamphetamine use but does use marijuana and tobacco. Differential diagnosis includes drug-induced psychosis, posttraumatic stress disorder, major depressive disorder, hallucinations, chronic schizophrenia. Patient was given 20 mg of Geodon to help with hallucinations. Patient will be started on Abilify 10 mg daily and recommended for follow-up with primary care or [facility]. Discharge Plan Discharge Patient Disposition: Home Clinical Impression: Hallucinations, Post-traumatic stress disorder, chronic Condition: Stable Prescriptions: New Abilify 10 mg tablet 10 mg PO DAILY Qty: 30 0RF No Action ondansetron 4 mg tablet,disintegrating 4 mg PO Q8H PRN (Reason: nausea and vomiting) Qty: 14 0RF Discharge Orders: Discharge ED (Routine); Ordered 02/20/22 Ordered By: Abdi Lama Discharge Diet: Usual diet Discharge Activity: Increase activity as tolerated Patient Instructions: Hallucinations (ED) Activity Restrictions/Additional Instructions: Home and rest. Take Abilify 10 mg daily. Follow-up with primary care or behavioral health customer care coordinator for continuation of medications. You will need new refills and continued management. Return to the emergency room for worsening symptoms, thoughts of suicide or homicide, or new concerns. Coding Level of Care Code ED Wood Die Maker for Curt Fwd Exam Comprehensive
[2022-02-20] MEDS: ziprasidone 20 mg/mL SDV IM (18:34)
--- NOTE | 2022-02-21 08:44 | DCPLANNER ---
Addendum entered by Deysi Kwan 02/23/22 14:54: workforce investment act career manager received the following message from Whitney at [facility] regarding follow up appointment: I will call her and explain our walk in assessments. Original Note: workforce investment act career manager had message to refer patient to [facility] for PTSD. workforce investment act career manager emailed patients information to Whitney Morrow, wardrobe coordinator at [facility] for follow up. Patients information will be reviewed. Clinic will call patient with appointment.
== END 2022-02-20 18:46 | disposition home or self-care (01) ==
PROVIDERS: Emergency Provider Nurse Practitioner Family
DX: R44.0 Auditory hallucinations (principal); F43.12 Post-traumatic stress disorder, chronic; F17.210 Nicotine dependence, cigarettes, uncomplicated
CPT/HCPCS: 96372; 99284; J3486

== ENCOUNTER 2022-02-22 22:02 | Inpatient (IN) | payer MEDICAID, SELFPAY ==
[2022-02-22 22:03] VITALS: BP 128/95; PULSE 114; RESP 16; TEMP 37; O2SAT 99; BMI 24.7
--- NOTE | 2022-02-22 22:14 | W.ED.GENADLT ---
HPI - General Adult General: Chief complaint: Psychiatric Symptoms Stated complaint: Hallucinations Time Seen by Provider: 02/22/22 22:06 History of Present Illness: HPI: [26]yo patient w/ hx SI and depression presenting to the emergency room for auditory hallucination visual hallucination. Patient has been off of Abilify for the last 2 days and has been hearing voices and seeing people that other people not seeing. Patient would like to restart her medication. On arrival, the patient is AAOx3 and cooperative with my evaluation. No focal complaints of chest pain, shortness of breath, palpitations, N/V, focal GI/ complaints. Currently denies SI/HI. Onset: acute on chronic x 2 days Duration: ongoing Location: home Severity: severe Associated symptoms: Deny chest pain, dyspnea, nausea, rash, palpitations or vomiting Review of Systems Const: Denies: fever(s) or chills Eyes: Denies: change in vision ENMT: Denies: mouth pain Card: Denies: chest pain or palpitations Resp: Denies: dyspnea or non-productive cough GI: Denies: abdominal pain, nausea, vomiting or diarrhea : Denies: dysuria Musc: Denies: extremity pain Skin/Breast: Denies: rash or new lesions Neuro: Denies: weakness in extremities Psych: Reports: visual hallucinations, auditory hallucinations and other (Normal mood) Beni/Lymph: Denies: easy bruising PFSH ED PFSH: Medical History Cannabis use disorder, mild, abuse Depression 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 Self-injurious behavior Smoker Suicidal ideation Surgical History No pertinent past surgical history Family History Father Psychiatric illness Schizophrenia, Unknown Psychiatric illness 2 of her cousins committed suicide Denies family history of CAD (coronary artery disease) Clotting disorder Chronic kidney disease (CKD) Cancer Social History Smoking and tobacco status: current every day smoker cigarettes Packs smoked per day: 0.5 Years cigarettes smoked: 6 Quit status (tobacco): has tried quititng Number of times tried to quit tobacco: 1 Second hand smoke exposure: No Smoking risk assessment/counseling performed?: Yes Tobacco counseling given: counseling >3 minutes Alcohol intake: never Household members: family Housing: House Marital status details: She is a single mother of 5 children, Current gender identity: Female Female Reproductive History: Date of last menstrual period: 02/03/22 Physical Exam Const: COMMON NORMALS: alert HENMT: COMMON NORMALS: atraumatic HEAD & SCALP: atraumatic MOUTH: moist mucous membranes not abnormal Eye: COMMON NORMALS: EOMs intact bilaterally and conjunctivae normal CONJUNCTIVA: Yes conjunctivae normal Neck/C-Spine: COMMON NORMALS: full ROM and supple Resp: COMMON NORMALS: normal respiratory effort and clear to auscultation bilaterally AUSCULTATION: clear to auscultation bilaterally Cardio: COMMON NORMALS: regular rate RATE: regular rate GI: COMMON NORMALS: Soft to palpation and non-tender PALPATION: Yes Soft to palpation Extremity: COMMON NORMALS: full ROM Neuro: SENSORIUM/ORIENTATION: Yes alert MOTOR EXAM: No Abnormal motor strength present and Other motor observations present (no focal motor deficits) Psych: COMMON NORMALS: speech normal SPEECH: Yes normal speech MOOD & AFFECT: Yes euthymic mood Course Vital Signs: Vital signs: Vital Signs Temperature 98.6 F 02/22/22 22:03 Pulse Rate 114 H 02/22/22 22:03 Respiratory Rate 16 02/22/22 22:03 Blood Pressure 128/95 02/22/22 22:03 Pulse Oximetry 99 02/22/22 22:03 Oxygen Delivery Me thod 02/22/22 22:03 MDM - General Adult Medical Decision Making [26]yo patient w/ hx of depression and SI presenting for auditory and visual hallucinations. HDS, exam within normal limit Thoughts are linear and organized, and the patient has no AH/VH, or HI. Clinically the patient displays no overt toxidrome; they are well appearing, with low suspicion for toxic ingestion given history and exam. Symptoms unlikely 2/2 anemia, hypothyroidism, infection, or ICH. Workup: CBC, CMP, Lipase, salicylate/tylenol, TSH/free T4, HCG, serum ethanol, UDS Lab findings: wnl [11:00pm] On reassessment, labs and workup wnl. Patient is hemodynamically stable with no acute medical complaints. Case discussed with psychiatric provider Dr. Sultana at [facility] psych inpatient who evaluated patient via telepsych and recommended discharge with close follow-up. She received 10 mg of Abilify in the ER. Dr. Sultana recommend close outpatient follow-up with [facility]. I have given patient follow up with our field case manager to be seen by our outpatient with [facility]. Patient aware of a call from our field case manager to schedule for appointment(s) and verbalizes understanding of the importance of following up. Disposition: Discharge Lab Data : 02/22/22 22:14 02/22/22 22:14 Laboratory Results HCG, Qual Negative (Negative) 02/22/22 22:14 Discharge Plan Discharge Patient Disposition: Home Clinical Impression: Auditory hallucination, Hallucination, visual Condition: Stable Prescriptions: New Abilify 10 mg tablet 10 mg PO DAILY 30 Days Qty: 30 0RF No Action aripiprazole [Abilify] 10 mg tablet 10 mg PO DAILY Qty: 30 0RF Discharge Orders: Discharge ED (Routine); Ordered 02/22/22 Ordered By: Francisca Beltran Discharge Diet: Advance as tolerated Discharge Activity: Increase activity as tolerated Patient Instructions: Hallucinations (ED) Activity Restrictions/Additional Instructions: Please come back to the emergency room if you need help, have any hallucinations, or you have any depression or have thoughts about hurting yourself or other people. Our field case manager will have you follow-up with [facility] in the next few days for auditory hallucination and visual hallucination. You would be expected to have a phone call with our field case manager who will put you on the schedule. You can expect a call from us in the next 2-3 days. If you don't hear from us, call us back in the emergency room at [phone]. Coding Level of Care Code ED Manager Spanish for Curt Fwd Exam Comprehensive
[2022-02-22 22:30] LABS: HCG Qualitative Urine. Negative (Negative)
[2022-02-22 22:33] LABS: Basophils % 0.3 %; Eosinophils # 0.1 10^3/uL (0.0-0.8); Hemoglobin 10.2 g/dL (11.5-15.3); Lymphocytes # 2.6 10^3/uL (0.8-4.8); Lymphocytes % 38.6 %; Mean Corpuscular HGB Conc 29.1 g/dL (30.0-36.0); Mean Corpuscular Hemoglobin 22.6 pg (28.0-34.0); Mean Corpuscular Volume 77.6 fl (81-99); Mean Platelet Volume 9.2 fL (7.4-10.4); Monocytes # 0.5 10^3/uL (0.2-0.9); Monocytes % 7.3 %; Neutrophils # 3.51 10^3/uL (1.8-7.7); Neutrophils % 51.4 %; Nucleated Red Blood Cells % 0 %; Platelet Count 281 10^3/cmm (130-400); Red Blood Count 4.51 10^6/uL (4.1-5.3); Red Cell Distribution Width 18.4 % (12.1-15.1); White Blood Count 6.8 10^3/uL (4.0-10.0)
[2022-02-22 22:36] LABS: Protein Urine Trace (Negative); Urine Appearance Clear (CLEAR); Urine Color Yellow (Yellow); pH Urine 6 (5-7)
[2022-02-22 22:37] LABS: Add Urine Microscopic? YES; Bilirubin Urine Neg (Negative); Blood Urine Neg (Negative); Glucose Urine UA Norm (Normal); Ketones Urine 1+ (Negative); Leukocyte Esterase Urine 2+ (Negative); Nitrate Urine Negative (Negative); Urobilinogen Urine 1 mg/dL (Negative)
[2022-02-22 22:39] LABS: RBC Urine 0-4 /hpf (0-2)
[2022-02-22 22:40] LABS: Bacteria Urine 1+ /hpf; Mucus Urine 2+ /hpf
[2022-02-22 22:41] LABS: Add Urine Culture? Yes
[2022-02-22 22:57] LABS: Acetaminophen < 5.0 ug/mL (10-30); Alanine Aminotransferase 26 U/L (0-33); Albumin Level 4.5 g/dL (3.5-5.2); Alkaline Phosphatase 59 U/L (35-105); Anion Gap 15.5 (5-19); Aspartate Amino Transferase 20 U/L (0-32); Blood Urea Nitrogen 7 mg/dL (6-20); Calcium 9.3 mg/dL (8.5-10.5); Carbon Dioxide 22 mmol/L (22-29); Chloride 106 mmol/L (98-107); Free T4 Free Thyroxine 1.16 ng/dL (0.82-1.77); Globulin 2.9 g/dL (1.3-4.6); Glucose 86 mg/dL (65-115); Lipase 25 U/L (13-60); Osmolality Calculated 285 mOsm/kg (285-295); Potassium 4.5 mmol/L (3.5-5.1); Salicylate < 0.3 mg/dL (3-10); Sodium 139 mmol/L (136-145); Thyroid Stimulating Hormone 1.78 uIU/mL (0.27-4.20); Total Bilirubin 0.2 mg/dL (0.15-1.2); Total Protein 7.4 g/dL (6.6-8.7)
[2022-02-22 23:14] VITALS: PULSE 93; RESP 16; O2SAT 99
[2022-02-23] MEDS: acetaminophen 325 mg Tablet 650 MG PO (00:09)
[2022-02-23] MEDS: ARIPiprazole 10 mg Tablet PO ×2 (00:09→08:36)
[2022-02-23 01:48] VITALS: BP 118/76; PULSE 96; RESP 18; TEMP 36.6; O2SAT 100
[2022-02-23 02:24] LABS: Amphetamines Screen Urine Positive (Negative); Barbiturates Screen Urine Negative (Negative); Benzodiazepines Screen Urine Negative (Negative); Cocaine Screen Urine Negative (Negative); Opiate Screen Urine Negative (Negative); PCP Screen Urine Negative (Negative); THC Screen Urine Positive (Negative)
[2022-02-23 06:00] VITALS: BP 103/63; PULSE 107; RESP 16; TEMP 36.7; O2SAT 98
--- NOTE | 2022-02-23 12:55 | DCPLANNER ---
manager style had message to schedule a follow up appointment for patient with [facility]. Patient was admitted to the NPU unit, case management director spoke with Chris case management in the NPU. manager style was told that case management will get patient set up with [facility] services on an outpatient basis.
--- NOTE | 2022-02-23 13:46 | W.PM.NPUH&PS ---
Providers/Chief Complaint Admitting Physician: Chris Sultana MD Chief Complaint: Hallucinations HPI NPU History of Present Illness Joceline Peterson is a 26 year old female who presented to the emergency department with the following report: Chief complaint: Psychiatric Symptoms Stated complaint: Hallucinations Time Seen by Provider: 02/22/22 22:06 History of Present Illness: HPI: [26]yo patient w/ hx SI and depression presenting to the emergency room for auditory hallucination visual hallucination. Patient has been off of Abilify for the last 2 days and has been hearing voices and seeing people that other people not seeing. Patient would like to restart her medication. On arrival, the patient is AAOx3 and cooperative with my evaluation. No focal complaints of chest pain, shortness of breath, palpitations, N/V, focal GI/ complaints. Currently denies SI/HI. Onset: acute on chronic x 2 days Duration: ongoing Location: home Severity: severe Associated symptoms: Deny chest pain, dyspnea, nausea, rash, palpitations or vomiting. The patient was admitted to the neuropsychiatric unit for definitive treatment of those issues. She is currently on Abilify. She reports she has been off her medication for a few days and presents to get a refill as she did not have enough money for her refill. She has been psychiatrically hospitalized once, has been to [facility] and [facility] and has not been on many other psychiatric medications. She reports half a pack of cigarettes a day, denies alcohol, marijuana, or current use of illicit drugs but reports in the past. She has had a possession charge in the past. She reports no mental health issues before using methamphetamine at 13 years old which she has been using off and on though reports she has been trying not to. She reports the only reason she had stopped her medication was finances. She reports past suicidal ideation but denies self-injurious behaviors. An excerpt of her 2019 inpatient psychiatric evaluation is included below for context given her limited performance as a historian. Psychiatric History: As above. Substance Abuse History: As above. Family History: She denies mental health or addiction issues on either side of the family or suicide attempts or completions. Developmental History: She denies any issues with her or , learned to walk and talk and met her developmental milestones on time and denies any need for speech therapy, learning support, emotional support or special education classes. Psychosocial History: She reports her parents were together when she was born and split up later. She has an older sister who is a product of the same union. Neither of her parents have any additional children. She described her childhood as fine and denies emotional, physical or sexual abuse. She denies CYS involvement. She denies any other traumatic events. The highest grade she achieved was 8th grade. She endorses being heterosexual with her longest relationship being 10 years. She has never been , has 4 children from 11 to 4 years old, has never been in the and endorses being anabaptism. She has never been employed and is not on disability. She currently lives in an apartment with her mother. Legal History: She has been to longterm 2 to 4 times, the longest of which was 3 days. Medical History: She denies any known allergies to medications. She had a tonsillectomy. She delivered her children vaginally. She began menstruating around 11 years old and denies any issues. Per her 12/17/2018 [facility] inpatient psychiatric evaluation: History of Present Illness Date of Service: Dec 17, 2018 Chief Complaint: Took many Xanax pills. HPI: Joceline is a 23 year old white female who was referred for drug overdose. She took six or seven Xanax Tabs and 2 Klonopins. She took the medications because of stress. Reasons for stress is boyfriend is dating another girl. Joceline states that she was not trying to kill herself. The patient describes having a verbal argument with boyfriend. Then she took the pills. The boyfriend called the sales property manager. Joceline states that she was calling her mother to come and gether. Moods are happy, sad and mad. She is able to have fun. Sleep is good. Appetite is good. Energy level is good. Concentration is poor. The patient has crying spells and guilty feelings. Motivation is good. Self esteem is up and down. Joceline is hopeful. She denies homicidal and suicidal thoughts. Joceline describes feeling depressed all of the time. She worries too much. The worry is overwhelming. Symptoms of anxiety are ? She has panic attacks. The voices cause the panic attacks. Symptoms of panic attacks are cannot be left a lone. Joceline has to be put things in order. She denies obsessions. The patient denies son. Joceline struggles with irritability. People can cause irritability. Joceline is quiet when irritable. Joceline has PTSD. Symptoms of PTSD are ? The patient hears voices constantly. The voices are male and female. The voices are outside of her head. The voices tell her a bunch of things. She sees a sharon climbing on her giving her photoengraving apprentice. Joceline sees a sharon raping her. The patient feels people are following her. The radio and television talks to her. Patient complains of thought broadcasting, thought insertion and thought withdrawal. Allergies: Coded Allergies: No Known Allergies (Unverified Allergy, Unknown, 05/20/18) Active Meds: Current Hospital Medications: Medications (Trade) Dose Ordered Sig/Velia Route PRN Reason Start Time Stop Time Status Last Admin Dose Admin Lorazepam (Ativan Tab) 0.5 mg Q4H PRN PO FOR MILD ANXIETY 12/16/18 12:15 Lorazepam (Ativan Tab) 1 mg Q4H PRN PO FOR MODERATE ANXIETY 12/16/18 12:15 Lorazepam (Ativan Tab) 2 mg Q4H PRN PO FOR SEVERE ANXIETY 12/16/18 12:15 Lorazepam (Ativan Inj) 2 mg Q4H PRN IM For Severe Aggression 12/16/18 12:15 Haloperidol Lactate (Haldol Inj) 5 mg Q4H PRN IM Severe Aggression 12/16/18 12:15 Diphenhydramine HCl (Benadryl Inj) 50 mg ONCE PRN IV Severe Extrapyramidal Symptoms 12/16/18 12:15 Benztropine Mesylate (Cogentin Tab) 1 mg BID PRN PO Mild Extrapyramidal symptoms 12/16/18 12:15 Benztropine Mesylate (Cogentin Inj) 1 mg ONCE PRN IM Severe Extrapyramidal Symptom 12/16/18 12:15 Acetaminophen (Tylenol Tab) 650 mg Q4H PRN PO FOR MILD PAIN 12/16/18 12:15 Trazodone HCl (Trazodone) 50 mg BEDTIME PRN PO FOR SLEEP 12/16/18 12:15 Nicotine (Nicoderm Patch) 21 mg DAILY PRN TD FOR WITHDRAWAL 12/16/18 12:15 Nicotine Polacrilex (Nicotine Gum) 2 mg Q2H PRN PO Withdrawal 12/16/18 12:15 Haloperidol (Haldol Tab) 5 mg Q4H PRN PO For agitation 12/16/18 12:15 Lorazepam (Ativan Tab) 2 mg Q4H PRN PO FOR AGITATION 12/16/18 12:15 Past Medical History Past Medical History: None Other Medical History: She was hospitalized at [facility] months ago . She was hospitalized for a week. Joceline stated that she could wear her eight year old daughter clothes Denies history of individual therapy and medication management. The patient has a history of suicide attempts, self injurious behavior and violence. Other Surgical History: None Other Family Medical History: Biological father has schizophrenia. There is no history of substance use. Two cousins committed suicide. There is no family history of medical illness. Other Past Social History: Joceline started using methamphetamine years ago. She smokes a quarter size of methamphetamine. The last time she used methamphetamine was two days ago. Joceline smokes a half ppd of cigarettes. She denies other forms of substance use. Joceline was born in [facility] and raised [place], [place]. Biological parents are . The patient has one older sister. Joceline lives with biological mother. The patient is single with five children. She dropped out of school in the eighth grade. The patient is unemployed. Parents help her financially. Joceline has transportation. The older sister adopted two of her children. Biological mother has custody of two children. One child lives in [place] with a relative. Children were taken away because of drug raid. Denies legal charges, Joceline denies a history of physical and sexual abuse. 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 Self-injurious behavior Smoker Suicidal ideation Surgical History No pertinent past surgical history Family History Father Psychiatric illness Schizophrenia, Unknown Psychiatric illness 2 of her cousins committed suicide Denies family history of CAD (coronary artery disease) Clotting disorder Chronic kidney disease (CKD) Cancer Social History Smoking and tobacco status: current every day smoker cigarettes Packs smoked per day: 0.5 Years cigarettes smoked: 6 Quit status (tobacco): has tried quititng Number of times tried to quit tobacco: 1 Second hand smoke exposure: No Smoking risk assessment/counseling performed?: Yes Tobacco counseling given: counseling >3 minutes Alcohol intake: never Household members: family Housing: House Marital status details: She is a single mother of 5 children, Current gender identity: Female Mental Status Exam MSE Comments: This is a well nourished, well developed white woman in hospital scrubs with limited grooming and eye contact. Significant acne on cheeks. No abnormal movements except for mild psychomotor retardation. Cooperative with exam in mild to moderate distress. Speech was decreased volume and normal rate. Mood described as tired, affect is congruent. Thought process, organized. Thought content: patient denies suicidal or homicidal ideation, no delusions reported or noted and denies any auditory or visual hallucinations. Attention and concentration are intact and memory appeared reliable but none were formally tested. She is alert and oriented three times. Insight and judgment are limited. Impulse control appears fair. Vitals/I&O/Wt Last Vital Signs Temp 98.1 F 02/23/22 06:00 Pulse 107 H 02/23/22 06:00 Resp 16 02/23/22 06:00 BP 103/63 02/23/22 06:00 Pulse Ox 98 02/23/22 06:00 O2 Del Method 02/23/22 06:00 Weight last 48 hrs Weight 61.235 kg Data NPU : 02/22/22 22:14 02/22/22 22:14 A&P Assessment and plan (1) Hallucinations: (2) Auditory hallucination: (3) Hallucination, visual: (4) Other stimulant use, unspecified, uncomplicated: (5) Post-traumatic stress disorder, chronic: Plan This is a 26 year old white woman with a history of methamphetamine use and psychosis who presents a few days off of her medication reporting they were not able to pick it up due to their financial situation but otherwise reporting she is doing well. 1. Continue current medications 2. Encourage individual, group and milieu therapy 3. Continue q-15 minute check for safety 4. We will evaluate for safety and consideration of discharge in the morning. Involuntary Hold Information 96 Hour Hold: 96 Hour Involuntary Admission: No Attestations NPU Medical Necessity Statement*: Inpatient hospitalization is medically necessary and the clinically appropriate intervention at this time. We will monitor medications and make changes as indicated. Patient will be in the hospital for over two midnights. Likely length of stay is one to three days. Coding Level of Care Code Acute Nuclear Physics Teacher for Curt Elder Diagnoses Hallucinations R44.3 Auditory hallucination R44.0 Hallucination, visual R44.1 Other stimulant use, unspecified, uncomplicated F15.90 Post-traumatic stress disorder, chronic F43.12
[2022-02-23 14:00] VITALS: BP 105/65; PULSE 96; RESP 18; O2SAT 99
[2022-02-23] MEDS: trazodone 50 mg Tablet PO (20:31)
[2022-02-23 21:20] VITALS: BP 136/72; PULSE 106; RESP 18; TEMP 36.8; O2SAT 98
[2022-02-24 06:00] VITALS: BP 105/73; PULSE 106; RESP 18; TEMP 37; O2SAT 96
[2022-02-24] MEDS: ARIPiprazole 10 mg Tablet PO (09:22)
--- NOTE | 2022-02-24 13:57 | W.PM.NPUPNS ---
Subjective NPU Subjective: Patient presents today reporting that she is just wants to go home. We discussed her omission of the methamphetamine use in our conversation about the reason why she is in the hospital. We discussed that her family is very desirous of her going to some kind of drug and alcohol treatment before she comes home. They are not excited about her continued use and her wanting to come home to where 2 of her children live. She was very tearful and childlike saying that she did not go home but had no real answers about her addiction or what she is prepared to do differently. Mental Status Exam MSE Comments: This is a well nourished, well developed white woman in hospital scrubs with limited grooming and eye contact. Significant acne on cheeks. No abnormal movements except for mild psychomotor retardation. Mostly cooperative with exam in mild to moderate distress. Speech was decreased volume and normal rate. Mood described as I does want to go home, affect was tearful and childlike. Thought process, organized. Thought content: patient denies suicidal or homicidal ideation, no delusions reported or noted and denies any auditory or visual hallucinations. Attention and concentration are intact and memory appeared reliable but none were formally tested. She is alert and oriented three times. Insight and judgment are limited. Impulse control appears fair. Vitals/I&O/Wt Last Vital Signs Temp 98.6 F 02/24/22 06:00 Pulse 106 H 02/24/22 06:00 Resp 18 02/24/22 06:00 BP 105/73 02/24/22 06:00 Pulse Ox 96 02/24/22 06:00 O2 Del Method 02/24/22 06:00 Data NPU : 02/22/22 22:14 02/22/22 22:14 Micro: Microbiology 02/22/22 22:14 Urine Culture - Preliminary Urine,Clean Catch Microbiology 02/22/22 22:14 Urine,Clean Catch Urine Culture - Preliminary A&P Assessment and plan (1) Hallucinations: (2) Auditory hallucination: (3) Hallucination, visual: (4) Other stimulant use, unspecified, uncomplicated: (5) Post-traumatic stress disorder, chronic: Plan This is a 26 year old white woman with a history of methamphetamine use and psychosis who presents a few days off of her medication reporting they were not able to pick it up due to their financial situation but otherwise reporting she is doing well. 1. Continue current medications. Resumed her Abilify 2. Encourage individual, group and milieu therapy 3. Continue q-15 minute check for safety 4. We will evaluate for safety and consideration of discharge in the morning. Involuntary Hold Information 96 Hour Hold: 96 Hour Involuntary Admission: No Attestations NPU Medical Necessity Statement*: Inpatient hospitalization is medically necessary and the clinically appropriate intervention at this time. We will monitor medications and make changes as indicated. Likely length of stay is 2-4 days. Coding Level of Care Code Acute Digital Communications Manager for Curt Castrejond Diagnoses Hallucinations R44.3 Auditory hallucination R44.0 Hallucination, visual R44.1 Other stimulant use, unspecified, uncomplicated F15.90 Post-traumatic stress disorder, chronic F43.12
[2022-02-24 14:00] VITALS: RESP 16
[2022-02-24] MEDS: hyDROXYzine 25 mg Capsule 50 MG PO (20:59)
[2022-02-24] MEDS: trazodone 50 mg Tablet PO (20:59)
[2022-02-24 22:00] VITALS: RESP 17
[2022-02-25 06:00] VITALS: BP 113/80; PULSE 132; RESP 18; O2SAT 97
[2022-02-25] MEDS: ARIPiprazole 10 mg Tablet PO (08:36)
[2022-02-25 14:00] VITALS: BP 111/78; PULSE 107; RESP 16; TEMP 36.7; O2SAT 97
--- NOTE | 2022-02-25 16:49 | P.NPUPN_ITS ---
Subjective NPU Subjective: Patient presented today reporting that she is feeling okay. She is feeling some improvement but is anxious about the idea of going to any kind of inpatient program. She is very childlike in reporting a desire to see her family and hug them. We discussed her family desire is to get assistance for her methamphetamine addiction prior to coming home. She continues to be isolative on the unit sleeping most of the time and life engagement. Mental Status Exam MSE Comments: This is a well nourished, well developed white woman in hospital scrubs with limited grooming and eye contact. Significant acne on cheeks. No abnormal movements except for mild psychomotor retardation. Mostly cooperative with exam in mild distress. Speech was decreased volume and normal rate. Mood described as I just want to go home, affect was tearful and childlike. Thought process, organized. Thought content: patient denies suicidal or homicidal ideation, no delusions reported or noted and denies any auditory or visual hallucinations. Attention and concentration are intact and memory appeared reliable but none were formally tested. She is alert and oriented three times. Insight and judgment are limited. Impulse control appears fair. Vitals/I&O/Wt Last Vital Signs Temp 98.3 F 02/25/22 19:08 Pulse 100 02/25/22 19:08 Resp 17 02/25/22 19:08 BP 80/55 02/25/22 19:08 Pulse Ox 98 02/25/22 19:08 O2 Del Method 02/25/22 19:08 Data NPU : 02/22/22 22:14 02/22/22 22:14 Micro: Microbiology 02/22/22 22:14 Urine Culture - Final Urine,Clean Catch Microbiology 02/22/22 22:14 Urine,Clean Catch Urine Culture - Final A&P Assessment and plan (1) Hallucinations: (2) Auditory hallucination: (3) Hallucination, visual: (4) Other stimulant use, unspecified, uncomplicated: (5) Post-traumatic stress disorder, chronic: (6) Methamphetamine use disorder, severe: Plan This is a 26 year old white woman with a history of methamphetamine use and psychosis who presents a few days off of her medication reporting they were not able to pick it up due to their financial situation but otherwise reporting she is doing well. 1. Continue current medications. Resumed her Abilify 2. Encourage individual, group and milieu therapy 3. Continue q-15 minute check for safety 4. Encourage sober living treatment after discharge at the highest level of care to which she is willing to commit. Patient would benefit from inpatient rehab. Involuntary Hold Information 96 Hour Hold: 96 Hour Involuntary Admission: No Attestations NPU Medical Necessity Statement*: Inpatient hospitalization is medically necessary and the clinically appropriate intervention at this time. We will monitor medications and make changes as indicated. Likely length of stay is 2-4 days. Coding Level of Care Code Acute Product Manager Medical Device for Curt Elder Diagnoses Hallucinations R44.3 Auditory hallucination R44.0 Hallucination, visual R44.1 Other stimulant use, unspecified, uncomplicated F15.90 Post-traumatic stress disorder, chronic F43.12 Methamphetamine use disorder, severe F15.20
[2022-02-25] MEDS: nicotine 2 mg Gum BUCCAL (16:52)
[2022-02-25 19:08] VITALS: BP 80/55; PULSE 100; RESP 17; TEMP 36.8; O2SAT 98
[2022-02-25] MEDS: trazodone 50 mg Tablet PO (20:18)
[2022-02-26 06:00] VITALS: BMI 35.9
[2022-02-26] MEDS: nicotine 2 mg Gum BUCCAL (09:51)
[2022-02-26] MEDS: ARIPiprazole 10 mg Tablet PO (09:51)
[2022-02-26 14:00] VITALS: BP 104/65; PULSE 113; RESP 15; TEMP 36.7; O2SAT 100
--- NOTE | 2022-02-26 16:26 | W.PM.NPUPNS ---
Subjective NPU Subjective: Patient presents today reporting that she is willing to go to a rehab now but she reports that she has now talked to her family and convince them that she should be able to come home for a couple days before going to rehab. We discussed the fact that it is generally not the preferred approach in that we work with the treatment team tomorrow to see exactly what her family is envisioning and determine what is actually available for options. She denied any psychosis and reported being back on medication and not using any drugs in the past several days being very helpful. Mental Status Exam MSE Comments: This is a well nourished, well developed white woman in hospital scrubs with limited grooming and eye contact. Significant acne on cheeks. No abnormal movements except for mild psychomotor retardation. Mostly cooperative with exam in no acute distress. Speech was decreased volume and normal rate. Mood described as better, affect was congruent. Thought process, organized. Thought content: patient denies suicidal or homicidal ideation, no delusions reported or noted and denies any auditory or visual hallucinations. Attention and concentration are intact and memory appeared reliable but none were formally tested. She is alert and oriented three times. Insight and judgment are limited, but improving. Impulse control appears fair. Vitals/I&O/Wt Last Vital Signs Temp 97.9 F 02/26/22 21:07 Pulse 100 02/26/22 21:07 Resp 17 02/26/22 21:07 BP 116/80 02/26/22 21:07 Pulse Ox 98 02/26/22 21:07 O2 Del Method 02/26/22 21:07 Weight last 48 hrs Weight 83.461 kg Data NPU : 02/22/22 22:14 02/22/22 22:14 A&P Assessment and plan (1) Hallucinations: (2) Auditory hallucination: (3) Hallucination, visual: (4) Other stimulant use, unspecified, uncomplicated: (5) Post-traumatic stress disorder, chronic: (6) Methamphetamine use disorder, severe: Plan This is a 26 year old white woman with a history of methamphetamine use and psychosis who presents a few days off of her medication reporting they were not able to pick it up due to their financial situation but otherwise reporting she is doing well. 1. Continue current medications. Resumed her Abilify 2. Encourage individual, group and milieu therapy 3. Continue q-15 minute check for safety 4. Encourage sober living treatment after discharge at the highest level of care to which she is willing to commit. Patient would benefit from inpatient rehab. Involuntary Hold Information 96 Hour Hold: 96 Hour Involuntary Admission: No Attestations NPU Medical Necessity Statement*: Inpatient hospitalization is medically necessary and the clinically appropriate intervention at this time. We will monitor medications and make changes as indicated. Likely length of stay is 1-3 days. Coding Level of Care Code Acute Web Design Specialist for Curt Elder Diagnoses Hallucinations R44.3 Auditory hallucination R44.0 Hallucination, visual R44.1 Other stimulant use, unspecified, uncomplicated F15.90 Post-traumatic stress disorder, chronic F43.12 Methamphetamine use disorder, severe F15.20
--- NOTE | 2022-02-26 19:45 | PC.NURSE ---
Patient continues to isolate to room this evening. Cooperative with assessment. Denies SI/HI. Rates anxiety at 3/10 and depression at 4/10. Patient voiced concerns about discharge date. Informed patient she would have to speak to MD regarding discharge. Patient then stated I guess I can only be discharged if I agree to go to rehab. If that's what I have to do to get out of here I guess I will. Encouraged patient to come out of room and join peers in dayroom but patient stated she did not feel like it. No complaints voiced.
[2022-02-26 21:07] VITALS: BP 116/80; PULSE 100; RESP 17; TEMP 36.6; O2SAT 98
[2022-02-27 06:00] VITALS: BP 104/66; PULSE 104; RESP 16; TEMP 36.4; O2SAT 97
[2022-02-27] MEDS: ARIPiprazole 10 mg Tablet PO (08:15)
[2022-02-27 14:00] VITALS: BP 126/91; PULSE 115; RESP 16; TEMP 36.7; O2SAT 100
[2022-02-27] MEDS: nicotine 2 mg Gum BUCCAL (16:12)
--- NOTE | 2022-02-27 18:23 | P.NPUPN_ITS ---
Subjective NPU Subjective: Patient presents today reporting that she is able to return home which it is unclear because they are mixed messages coming from home. We were advised that she would need to go to [facility] or some program like that because she could not come home and simultaneously will be told that she is being picked up by them tomorrow at 1. At this point we agreed to a plan for discharge tomorrow even though our recommendation is that she go to [facility] and get into active drug and alcohol treatment. Mental Status Exam MSE Comments: This is a well nourished, well developed white woman in hospital scrubs with limited grooming and eye contact. Significant acne on cheeks. No abnormal movements. Cooperative with exam in no acute distress. Speech was more normal volume and normal rate. Mood described as better, affect was congruent. Thought process, organized. Thought content: patient denies suicidal or homicidal ideation, no delusions reported or noted and denies any auditory or visual hallucinations. Attention and concentration are intact and memory appeared reliable but none were formally tested. She is alert and oriented three times. Insight and judgment are limited, but improving. Impulse control appears fair. Vitals/I&O/Wt Last Vital Signs Temp 98.6 F 02/27/22 22:00 Pulse 78 02/27/22 22:00 Resp 16 02/27/22 22:00 BP 132/75 02/27/22 22:00 Pulse Ox 96 02/27/22 22:00 O2 Del Method 02/27/22 22:00 Weight last 48 hrs Weight 83.461 kg Data NPU : 02/22/22 22:14 02/22/22 22:14 A&P Assessment and plan (1) Hallucinations: (2) Auditory hallucination: (3) Hallucination, visual: (4) Other stimulant use, unspecified, uncomplicated: (5) Post-traumatic stress disorder, chronic: (6) Methamphetamine use disorder, severe: Plan This is a 26 year old white woman with a history of methamphetamine use and psychosis who presents a few days off of her medication reporting they were not able to pick it up due to their financial situation but otherwise reporting she is doing well. 1. Continue current medications. Resumed her Abilify 2. Encourage individual, group and milieu therapy 3. Continue q-15 minute check for safety 4. Encourage sober living treatment after discharge at the highest level of care to which she is willing to commit. Patient would benefit from inpatient rehab. Involuntary Hold Information 96 Hour Hold: 96 Hour Involuntary Admission: No Attestations NPU Medical Necessity Statement*: Inpatient hospitalization is medically necessary and the clinically appropriate intervention at this time. We will monitor medications and make changes as indicated. Likely length of stay is 1-2 days. Coding Level of Care Code Acute Senior Business Broker for Curt Elder Diagnoses Hallucinations R44.3 Auditory hallucination R44.0 Hallucination, visual R44.1 Other stimulant use, unspecified, uncomplicated F15.90 Post-traumatic stress disorder, chronic F43.12 Methamphetamine use disorder, severe F15.20
[2022-02-27 22:00] VITALS: BP 132/75; PULSE 78; RESP 16; TEMP 37; O2SAT 96
[2022-02-28 06:00] VITALS: BP 103/68; PULSE 93; RESP 18; TEMP 36.9; O2SAT 98
[2022-02-28] MEDS: ARIPiprazole 10 mg Tablet PO (08:47)
--- NOTE | 2022-02-28 12:46 | P.NPUDS_ITS ---
Diagnoses at Discharge Discharge Diagnosis (1) Hallucinations: Status: Inactive (2) Auditory hallucination: Status: Resolved (3) Hallucination, visual: Status: Resolved (4) Other stimulant use, unspecified, uncomplicated: Status: Inactive (5) Post-traumatic stress disorder, chronic: Status: Acute (6) Methamphetamine use disorder, severe: Status: Acute Reason for Visit Reason for Visit: Hallucinations Brief History: History of Present Illness Joceline mckenzielsilvina Peterson is a 26 year old female who presented to the emergency department with the following report: Chief complaint: Psychiatric Symptoms Stated complaint: Hallucinations Time Seen by Provider: 02/22/22 22:06 History of Present Illness: HPI: [26]yo patient w/ hx SI and depression presenting to the emergency room for auditory hallucination visual hallucination. Patient has been off of Abilify for the last 2 days and has been hearing voices and seeing people that other people not seeing. Patient would like to restart her medication. On arrival, the patient is AAOx3 and cooperative with my evaluation. No focal complaints of chest pain, shortness of breath, palpitations, N/V, focal GI/ complaints. Currently denies SI/HI. Onset: acute on chronic x 2 days Duration: ongoing Location: home Severity: severe Associated symptoms: Deny chest pain, dyspnea, nausea, rash, palpitations or vomiting. The patient was admitted to the neuropsychiatric unit for definitive treatment of those issues. She is currently on Abilify. She reports she has been off her medication for a few days and presents to get a refill as she did not have enough money for her refill. She has been psychiatrically hospitalized once, has been to [facility] and [facility] and has not been on many other psychiatric medications. She reports half a pack of cigarettes a day, denies alcohol, marijuana, or current use of illicit drugs but reports in the past. She has had a possession charge in the past. She reports no mental health issues before using methamphetamine at 13 years old which she has been using off and on though reports she has been trying not to. She reports the only reason she had stopped her medication was finances. She reports past suicidal ideation but denies self-injurious behaviors. An excerpt of her 2019 inpatient psychiatric evaluation is included below for context given her limited performance as a historian. Psychiatric History: As above. Substance Abuse History: As above. Family History: She denies mental health or addiction issues on either side of the family or suicide attempts or completions. Developmental History: She denies any issues with her or , learned to walk and talk and met her developmental milestones on time and denies any need for speech therapy, learning support, emotional support or special education classes. Psychosocial History: She reports her parents were together when she was born and split up later. She has an older sister who is a product of the same union. Neither of her parents have any additional children. She described her childhood as fine and denies emotional, physical or sexual abuse. She denies CYS involvement. She denies any other traumatic events. The highest grade she achieved was 8th grade. She endorses being heterosexual with her longest relationship being 10 years. She has never been , has 4 children from 11 to 4 years old, has never been in the and endorses being jehovah's witness. She has never been employed and is not on disability. She currently lives in an apartment with her mother. Legal History: She [facility] to [facility] times, the longest of which was 3 days. Medical History: She denies any known allergies to medications. She had a tonsillectomy. She delivered her children vaginally. She began menstruating around 11 years old and denies any issues. Per her 12/17/2018 [facility] inpatient psychiatric evaluation: History of Present Illness Date of Service: Dec 17, 2018 Chief Complaint: Took many Xanax pills. HPI: Joceline is a 23 year old white female who was referred for drug overdose. She took six or seven Xanax Tabs and 2 Klonopins. She took the medications because of stress. Reasons for stress is boyfriend is dating another girl. Joceline states that she was not trying to kill herself. The patient describes having a verbal argument with boyfriend. Then she took the pills. The boyfriend called the cement mason. Joceline states that she was calling her mother to come and gether. Moods are happy, sad and mad. She is able to have fun. Sleep is good. Appetite is good. Energy level is good. Concentration is poor. The patient has crying spells and guilty feelings. Motivation is good. Self esteem is up and down. Joceline is hopeful. She denies homicidal and suicidal thoughts. Joceline describes feeling depressed all of the time. She worries too much. The worry is overwhelming. Symptoms of anxiety are ? She has panic attacks. The voices cause the panic attacks. Symptoms of panic attacks are cannot be left a lone. Joceline has to be put things in order. She denies obsessions. The patient denies son. Joceline struggles with irritability. People can cause irritability. Joceline is quiet when irritable. Joceline has PTSD. Symptoms of PTSD are ? The patient hears voices constantly. The voices are male and female. The voices are outside of her head. The voices tell her a bunch of things. She sees a sharon climbing on her giving her hotel assistant manager. Joceline sees a sharon raping her. The patient feels people are following her. The radio and television talks to her. Patient complains of thought broadcasting, thought insertion and thought withdrawal. Allergies: Coded Allergies: No Known Allergies (Unverified Allergy, Unknown, 05/20/18) Past Medical History Past Medical History: None Other Medical History: She [place] [facility] [place] . She was hospitalized for a week. Joceline stated that she could wear her eight year old daughter clothes Denies history of individual therapy and medication management. The patient has a history of suicide attempts, self injurious behavior and violence. Other Surgical History: None Other Family Medical History: Biological father has schizophrenia. There is no history of substance use. Two cousins committed suicide. There is no family history of medical illness. Other Past Social History: Joceline started using methamphetamine years ago. She smokes a quarter size of methamphetamine. The last time she used methamphetamine was two days ago. Joceline smokes a half ppd of cigarettes. She denies other forms of substance use. Joceline was born in [facility] and raised [place], [place]. Biological parents are . The patient has one older sister. Joceline lives with biological mother. The patient is single with five children. She dropped out of school in the eighth grade. The patient is unemployed. Parents help her financially. Joceline has transportation. The older sister adopted two of her children. Biological mother has custody of two children. One child lives in [place] with a relative. Children were taken away because of drug raid. Denies legal charges, Joceline denies a history of physical and sexual abuse. Hospital Course Hospital Course She slowly acclimated to the individual, group and milieu therapies provided. She was restarted on her Abilify which she found to be quite helpful. She was also given Seroquel at night for sleep. She was working with the treatment team and her family to find an inpatient residential drug and alcohol treatment facility which was not proving effective. Initially they were going to reluctantly allow her to come home but her drug court coordinator was able to work with [facility] and she was able to be discharged to there. She had significant improvement during the stay and was able to contract for safety outside hospital prior to discharge. During the hospitalization, patient had routine laboratory studies which were within normal limits except for few outliers. Additionally there was a general medical evaluation which was also within normal limits and revealed no new acute processes. Discharge Summary: At the time of discharge, she denied psychosis or lethality. Mood and anxiety were well managed. Patient endorsed a plan to follow-up with the aftercare recommendations of the treatment team. Patient was evaluated and deemed to be absent credible lethality, and had achieved the maximum benefit from an inpatient hospitalization, so was discharged. Involuntary Hold Information 96 Hour Hold: 96 Hour Involuntary Admission: No Mental Status Exam MSE Comments: This is a well nourished, well developed white woman in hospital scrubs with limited grooming and eye contact. Significant acne on cheeks. No abnormal movements. Cooperative with exam in no acute distress. Speech was more normal volume and normal rate. Mood described as better, affect was congruent. Thought process, organized. Thought content: patient denies suicidal or homicidal ideation, no delusions reported or noted and denies any auditory or visual hallucinations. Attention and concentration are intact and memory appeared reliable but none were formally tested. She is alert and oriented three times. Insight and judgment are limited, but improving. Impulse control appears fair. Discharge Data Studies Completed and Pending: Laboratory Results WBC 6.8 10^3/uL (4.0- 10.0) 02/22/22 22:14 RBC 4.51 10^6/uL (4.1 -5.3) 02/22/22 22:14 Hgb 10.2 g/dL (11.5-1 5.3) L 02/22/22 22:14 Hct 35.0 % (37.0-47.0 ) L 02/22/22 22:14 MCV 77.6 fl (81-99) L 02/22/22 22:14 MCH 22.6 pg (28.0-34. 0) L 02/22/22 22:14 MCHC 29.1 g/dL (30.0-3 6.0) L 02/22/22 22:14 RDW 18.4 % (12.1-15.1 ) H 02/22/22 22:14 Plt Count 281 10^3/cmm (130 -400) 02/22/22 22:14 MPV 9.2 fL (7.4-10.4) 02/22/22 22:14 Neut % (Auto) 51.4 % 02/22/22 22:14 Lymph % (Auto) 38.6 % 02/22/22 22:14 [place] % (Auto) 7.3 % 02/22/22 22:14 Eos % (Auto) 2.0 % 02/22/22 22:14 Baso % (Auto) 0.3 % 02/22/22 22:14 Neut # (Auto) 3.51 10^3/uL (1.8 -7.7) 02/22/22 22:14 Lymph # (Auto) 2.6 10^3/uL (0.8- 4.8) 02/22/22 22:14 [place] # (Auto) 0.5 10^3/uL (0.2- 0.9) 02/22/22 22:14 Eos # (Auto) 0.1 10^3/uL (0.0- 0.8) 02/22/22 22:14 Baso # (Auto) 0.0 10^3/uL (0.0- 0.1) 02/22/22 22:14 Nucleated RBC % (a uto) 0 % 02/22/22:14 Nucleated RBCs # 0.0 /100WBC 02/22/22 22:14 Sodium 139 mmol/L (136-1 45) 02/22/22 22:14 Potassium 4.5 mmol/L (3.5-5 .1) 02/22/22 22:14 Chloride 106 mmol/L (98-10 7) 02/22/22 22:14 Carbon Dioxide 22 mmol/L (22-29) 02/22/22 22:14 Anion Gap 15.5 (5-19) 02/22/22 22:14 BUN 7 mg/dL (6-20) 02/22/22 22:14 Creatinine 0.5 mg/dL (0.5-0. 9) 02/22/22 22:14 GFR Calculation 148.0 mL/min (90- 130) H 02/22/22 22:14 Glucose 86 mg/dL (65-115) 02/22/22 22:14 Calculated Osmolal ity 285 mOsm/kg (285- 295) 02/22/22 22:14 Calcium 9.3 mg/dL (8.5-10 .5) 02/22/22 22:14 Total Bilirubin 0.2 mg/dL (0.15-1 .2) 02/22/22 22:14 AST 20 U/L (0-32) 02/22/22 22:14 ALT 26 U/L (0-33) 02/22/22 22:14 Alkaline Phosphata se 59 U/L (35-105) 02/22/22 22:14 Total Protein 7.4 g/dL (6.6-8.7 ) 02/22/22 22:14 Albumin 4.5 g/dL (3.5-5.2 ) 02/22/22 22:14 Globulin 2.9 g/dL (1.3-4.6 ) 02/22/22 22:14 Lipase 25 U/L (13-60) 02/22/22 22:14 TSH 1.78 uIU/mL (0.27 -4.20) 02/22/22 22:14 Free T4 1.16 ng/dL (0.82- 1.77) 02/22/22 22:14 HCG, Qual Negative (Negati ve) 02/22/22 22:14 Urine Color Yellow (Yellow) 02/22/22 22:14 Urine Appearance Clear (CLEAR) 02/22/22 22:14 Urine pH 6 (5-7) 02/22/22 22:14 Ur Specific Gravit y 1.020 (1.005-1.0 30) 02/22/22 22:14 Urine Protein Trace (Negative) 02/22/22 22:14 Urine Glucose (UA) Norm (Normal) 02/22/22 22:14 Urine Ketones 1+ (Negative) H 02/22/22 22:14 Urine Blood Neg (Negative) 02/22/22 22:14 Urine Nitrate Negative (Negati ve) 02/22/22 22:14 Urine Bilirubin Neg (Negative) 02/22/22 22:14 Urine Urobilinogen 1 mg/dL (Negative ) H 02/22/22 22:14 Ur Leukocyte Yudy ase 2+ (Negative) H 02/22/22 22:14 Urine RBC 0-4 /hpf (0-2) H 02/22/22 22:14 Urine WBC 10-15 /hpf (0-5) H 02/22/22 22:14 Ur Squamous Epith Cells 10-15 /hpf (0-5) H 02/22/22 22:14 Amorphous Sediment Not Reportable 02/22/22 22:14 Urine Bacteria 1+ /hpf (NONE) H 02/22/22 22:14 Urine Mucus 2+ /hpf 02/22/22 22:14 Salicylates < 0.3 mg/dL (3-10 ) L 02/22/22 22:14 Urine Opiates Scre en Negative ng/mL (N egative) 02/22/22 22:14 Acetaminophen < 5.0 ug/mL (10-3 0) L 02/22/22 22:14 Ur Barbiturates Sc reen Negative ng/mL (N egative) 02/22/22 22:14 Ur Phencyclidine S crn Negative ng/mL (N egative) 02/22/22 22:14 Ur Amphetamines Sc reen Positive ng/mL (N egative) H 02/22/22 22:14 U Benzodiazepines Scrn Negative ng/mL (N egative) 02/22/22 22:14 Urine Cocaine Scre en Negative ng/mL (N egative) 02/22/22 22:14 U Marijuana (THC) Screen Positive ng/mL (N egative) H 02/22/22 22:14 Vitals: Last Vital Signs Temp 98.5 F 02/28/22 06:00 Pulse 93 02/28/22 06:00 Resp 18 02/28/22 06:00 BP 103/68 02/28/22 06:00 Pulse Ox 98 02/28/22 06:00 O2 Del Method 02/28/22 06:00 Discharge Plan Discharge Patient Disposition: Home Condition: Stable Prescriptions: New Abilify 10 mg tablet 10 mg PO DAILY 30 Days Qty: 30 0RF quetiapine 25 mg Tablet 50 mg PO BEDTIME 30 Days Qty: 60 1RF Continued Abilify 10 mg tablet 10 mg PO DAILY 30 Days Qty: 30 1RF Discharge Orders: Discharge Order (Routine); Ordered 02/28/22 Ordered By: Chris Sultana Referrals: [facility] [Other] - 02/28/22 1:15 pm [facility] [place] [facility] [place]Outside[place] - 1-3 days (Initail appointment with [facility] as walk in on Sunday thorough Sunday 7:30 am to 3:00 pm. Your application has been sent to [facility] so they have it. ) Discharge Diet: Advance as tolerated Discharge Activity: Increase activity as tolerated Patient Instructions: Hallucinations (ED), Opioid Safety Activity Restrictions/Additional Instructions: Please come back to the emergency room if you need help, have any hallucinations, or you have any depression or have thoughts about hurting yourself or other people. Our case operator will have you follow-up with [facility] in the next few days for auditory hallucination and visual hallucination. You would be expected to have a phone call with our case operator who will put you on the schedule. You can expect a call from us in the next 2-3 days. If you don't hear from us, call us back in the emergency room at [phone]. Discharge Attestations NPU Time Spent in Discharge Care*: greater than 30 min Specific Discharge Activities: Specific discharge activities: educating patient, discussing with case operator/social workers/dc planners, documenting/other paperwork and evaluating patient/reviewing data Status at Discharge: Cognitive status at discharge: cognitively intact , Behavioral status at discharge: cooperative , Coding Level of Care Code Acute [facility] DC note Diagnoses Hallucinations R44.3 Auditory hallucination R44.0 Hallucination, visual R44.1 Other stimulant use, unspecified, uncomplicated F15.90 Post-traumatic stress disorder, chronic F43.12 Methamphetamine use disorder, severe F15.20
[2022-02-28 12:50] VITALS: BP 103/68; PULSE 93; RESP 18; TEMP 36.9; O2SAT 98
== END 2022-02-28 13:19 | disposition home or self-care (01) | DRG 882 ==
LOC: ER 02-23 00:09 → NP 02-23 01:36
PROVIDERS: Admitting Provider Psychiatry & Neurology Psychiatry; Emergency Provider Emergency Medicine; Visit Provider Psychiatry & Neurology Psychiatry
DX: F43.12 Post-traumatic stress disorder, chronic (principal); R44.0 Auditory hallucinations; F15.20 Other stimulant dependence, uncomplicated; R44.1 Visual hallucinations; T43.596A Underdosing of other antipsychotics and neuroleptics, initial encounter; Z91.120 Patient's intentional underdosing of medication regimen due to financial hardship; F17.210 Nicotine dependence, cigarettes, uncomplicated; Z59.89 Other problems related to housing and economic circumstances; Z91.51 Personal history of suicidal behavior
CPT/HCPCS: 80053; 80306; 80307; 81001; 81025; 83690; 84439; 84443; 85025; 87086; 97150; 97165; 99285

== ENCOUNTER 2022-08-28 19:10 | Emergency (ER) | payer MEDICAID, SELFPAY ==
[2022-08-28 19:54] VITALS: BP 134/75; PULSE 132; RESP 20; TEMP 36.6; O2SAT 98; BMI 32.0
[2022-08-28 20:14] LABS: Basophils % 0.4 %; Eosinophils % 0.4 %; Hematocrit 45.7 % (37.0-47.0); Hemoglobin 14.4 g/dL (11.5-15.3); Lymphocytes # 2.3 10^3/uL (0.8-4.8); Lymphocytes % 22.7 %; Mean Corpuscular HGB Conc 31.5 g/dL (30.0-36.0); Mean Corpuscular Hemoglobin 27.4 pg (28.0-34.0); Monocytes # 0.7 10^3/uL (0.2-0.9); Monocytes % 7.1 %; Neutrophils # 7.05 10^3/uL (1.8-7.7); Nucleated Red Blood Cells % 0 %; Platelet Count 310 10^3/cmm (130-400); Red Blood Count 5.25 10^6/uL (4.1-5.3); White Blood Count 10.2 10^3/uL (4.0-10.0)
--- NOTE | 2022-08-28 20:36 | ED.C_ITS ---
HPI - Psych General: Chief Complaint: Psychiatric Symptoms Stated Complaint: off meds, hearing voices Time Seen by Provider: 08/28/22 20:20 Source: patient Mode of arrival: ambulatory Limitations: no limitations History of Present Illness: 19-year-old female who states that she is on Abilify due to psychiatric reasons she states that she has been having increased hallucinations because she has been out of Abilify for 4 to 5 days and has not been able to get into see her PCP. She denies any suicidal or homicidal ideations states that hallucinations are mild and auditory she is awake and alert currently answering all my questions appropriately she has no signs of self-harm or harm to others Associated symptoms: Reports auditory hallucinations Review of Systems Const: Denies: fever(s), chills, body aches or change in appetite Eyes: Denies: blurry vision or eye discomfort ENMT: Denies: throat pain or dental pain Card: Denies: chest pain Resp: Denies: dyspnea GI: Denies: abdominal pain, nausea, vomiting or diarrhea : Denies: dysuria Musc: Denies: neck pain or back pain Skin/Breast: Denies: rash Neuro: Denies: headache(s) Psych: Reports: auditory hallucinations Beni/Lymph: Denies: easy bruising All/Imm: Denies: urticaria PFSH ED PFSH: Medical History Cannabis use disorder, mild, abuse Depression 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 Other stimulant use, unspecified, uncomplicated Psychiatric care Self-injurious behavior Smoker Suicidal ideation Surgical History No pertinent past surgical history Family History Father Psychiatric illness Schizophrenia, Unknown Psychiatric illness 2 of her cousins committed suicide Denies family history of CAD (coronary artery disease) Clotting disorder Chronic kidney disease (CKD) Cancer Social History Smoking and tobacco status: current every day smoker cigarettes Packs smoked per day: 0.5 Years cigarettes smoked: 6 Quit status (tobacco): has tried quititng Number of times tried to quit tobacco: 1 Second hand smoke exposure: No Smoking risk assessment/counseling performed?: Yes Tobacco counseling given: counseling >3 minutes Alcohol intake: never Household members: family Housing: House Marital status details: She is a single mother of 5 children, Current gender identity: Female Physical Exam Const: COMMON NORMALS: no acute distress, patient oriented x3 and healthy appearing HENMT: COMMON NORMALS: normocephalic and atraumatic HEAD & SCALP: normocephalic and atraumatic Eye: COMMON NORMALS: Equal, round and reactive pupils present and EOMs intact bilaterally PUPIL: Yes Equal, round and reactive pupils present Neck/C-Spine: COMMON NORMALS: full ROM and supple Chest: COMMONS NORMALS: normal inspection of the chest and normal palpation of entire chest wall Resp: COMMON NORMALS: normal respiratory effort, No retractions, No use of accessory muscles and clear to auscultation bilaterally AUSCULTATION: clear to auscultation bilaterally Cardio: COMMON NORMALS: regular rate, regular rhythm and No murmurs present (Cardio) RATE: regular rate RHYTHM: regular rhythm GI: COMMON NORMALS: Normal to inspection, nondistended, normoactive bowel sounds present, Soft to palpation, non-tender and no masses PALPATION: Yes Soft to palpation Extremity: COMMON NORMALS: normal to inspection and full ROM Neuro: COMMON NORMALS: patient oriented x3, moves all extremities and no focal motor deficits Psych: COMMON NORMALS: mental status grossly normal, Normal thought process present and cooperative THOUGHT PROCESS: Normal thought process present Skin: COMMON NORMALS: no rashes or lesions noted and no wounds GENERAL SKIN EXAM: no rashes or lesions noted Course Vital Signs: Vital signs: Vital Signs Temperature 97.8 F 08/28/22 19:54 Pulse Rate 132 H 08/28/22 19:54 Respiratory Rate 20 H 08/28/22 19:54 Blood Pressure 134/75 08/28/22 19:54 Pulse Oximetry 98 08/28/22 19:54 Oxygen Delivery Me thod Room Air 08/28/22 19:54 MDM - Psych Medical Decision Making Patient presents here with hallucinations she does have a history of methamphetamine abuse as well she does have some tachycardia here likely from methamphetamine she has mild hallucinations she is not acutely psychotic she is not suicidal homicidal she is requesting only med refill she does not have enough to be under 96-hour hold she is not a threat to herself and others will prescribe her Abilify get her set up with [facility] she is return if worsening she understands agrees to plan. Medical Records I reviewed the patient's medical records. Lab Data I reviewed the patient's lab results. 08/28/22 20:03 08/28/22 20:03 Laboratory Results WBC 10.2 10^3/uL (4.0-10.0) H 08/28/22 20:03 RBC 5.25 10^6/uL (4.1-5.3) 08/28/22 20:03 Hgb 14.4 g/dL (11.5-15.3) 08/28/22 20:03 Hct 45.7 % (37.0-47.0) 08/28/22 20:03 MCV 87.0 fl (81-99) 08/28/22 20:03 MCH 27.4 pg (28.0-34.0) L 08/28/22 20:03 MCHC 31.5 g/dL (30.0-36.0) 08/28/22 20:03 RDW 16.0 % (12.1-15.1) H 08/28/22 20:03 Plt Count 310 10^3/cmm (130-400) 08/28/22 20:03 MPV 9.0 fL (7.4-10.4) 08/28/22 20:03 Neut % (Auto) 69.0 % 08/28/22 20:03 Lymph % (Auto) 22.7 % 08/28/22 20:03 [place] % (Auto) 7.1 % 08/28/22 20:03 Eos % (Auto) 0.4 % 08/28/22 20:03 Baso % (Auto) 0.4 % 08/28/22 20:03 Neut # (Auto) 7.05 10^3/uL (1.8-7.7) 08/28/22 20:03 Lymph # (Auto) 2.3 10^3/uL (0.8-4.8) 08/28/22 20:03 [place] # (Auto) 0.7 10^3/uL (0.2-0.9) 08/28/22 20:03 Eos # (Auto) 0.0 10^3/uL (0.0-0.8) 08/28/22 20:03 Baso # (Auto) 0.0 10^3/uL (0.0-0.1) 08/28/22 20:03 Nucleated RBC % (auto) 0 % 08/28/22 20:03 Nucleated RBCs # 0.0 /100WBC 08/28/22 20:03 Sodium 134 mmol/L (136-145) L 08/28/22 20:03 Potassium 4.1 mmol/L (3.5-5.1) 08/28/22 20:03 Chloride 99 mmol/L (98-107) 08/28/22 20:03 Carbon Dioxide 26 mmol/L (22-29) 08/28/22 20:03 Anion Gap 13.1 (5-19) 08/28/22 20:03 BUN 14 mg/dL (6-20) 08/28/22 20:03 Creatinine 0.7 mg/dL (0.5-0.9) 08/28/22 20:03 GFR Calculation 99.6 mL/min (90-130) 08/28/22 20:03 Glucose 87 mg/dL (65-115) 08/28/22 20:03 Calculated Osmolality 278 mOsm/kg (285-295) L 08/28/22 20:03 Calcium 9.5 mg/dL (8.5-10.5) 08/28/22 20:03 Total Bilirubin 0.5 mg/dL (0.15-1.2) 08/28/22 20:03 AST 18 U/L (0-32) 08/28/22 20:03 ALT 17 U/L (0-33) 08/28/22 20:03 Alkaline Phosphatase 53 U/L (35-105) 08/28/22 20:03 Total Protein 8.4 g/dL (6.6-8.7) 08/28/22 20:03 Albumin 5.0 g/dL (3.5-5.2) 08/28/22 20: Globulin 3.4 g/dL (1.3-4.6) 08/28/22 20:03 Salicylates < 0.3 mg/dL (3-10) L 08/28/22 20:03 Acetaminophen < 5.0 ug/mL (10-30) L 08/28/22 20:03 Ethyl Alcohol < 10 mg/dL (0-10) 08/28/22 20:03 Discharge Plan Discharge Patient Disposition: Home Clinical Impression: Hallucinations Condition: Stable Prescriptions: Continued Abilify 10 mg tablet 10 mg PO DAILY 30 Days Qty: 30 1RF No Action quetiapine 25 mg Tablet 50 mg PO BEDTIME 30 Days Qty: 60 1RF Discharge Orders: Discharge ED (Routine); Ordered 08/28/22 Ordered By: Jen Blankenship Referrals[facility], [Staff Physician] - 1-3 days Discharge Diet: Advance as tolerated Discharge Activity: Resume usual activity Patient Instructions: Hallucinations (ED) Coding Level of Care Code ED Workcell Operator for Curt Elder
[2022-08-28 20:53] LABS: Alanine Aminotransferase 17 U/L (0-33); Alkaline Phosphatase 53 U/L (35-105); Anion Gap 13.1 (5-19); Aspartate Amino Transferase 18 U/L (0-32); Blood Urea Nitrogen 14 mg/dL (6-20); Calcium 9.5 mg/dL (8.5-10.5); Carbon Dioxide 26 mmol/L (22-29); Chloride 99 mmol/L (98-107); Globulin 3.4 g/dL (1.3-4.6); Glomerular Filtration Rate 99.6 mL/min (90-130); Glucose 87 mg/dL (65-115); Osmolality Calculated 278 mOsm/kg (285-295); Potassium 4.1 mmol/L (3.5-5.1); Sodium 134 mmol/L (136-145); Total Bilirubin 0.5 mg/dL (0.15-1.2); Total Protein 8.4 g/dL (6.6-8.7)
[2022-08-28 20:54] LABS: Acetaminophen < 5.0 ug/mL (10-30); Alcohol Level < 10 mg/dL (0-10); Salicylate < 0.3 mg/dL (3-10)
[2022-08-28] MEDS: ARIPiprazole 10 mg Tablet PO (21:30)
--- NOTE | 2022-08-29 10:24 | DCPLANNER ---
Addendum entered by Deysi Kwan 08/30/22 08:17: government program manager received the following message from [facility] scheduling, regarding follow up: the numbers we have on file and patient registration sheet have been disconnected, hopefully she will reach out to us, as of now we are not able to reach her so we will not be able to get her scheduled unless she contacts us Addendum entered by Deysi Vitaly Kwan 08/29/22 11:08: government program manager received the following message from the scheduling desk at [facility] regarding follow up appointment: we need an updated phone number, the number on account is her grandmas and said she is no longer living with her Addendum entered by Deysi Kwan 08/29/22 11:07: government program manager received the following message from Whitney at [facility], regarding follow up appointment: She completed her assessment in 04/2022 and no showed Eval 05/2022. Schedulers are going to call her. Original Note: government program manager had message to schedule a follow up appointment for patient with [facility]. government program manager sent patients information to the front office staff at [facility], scheduling. Patients information will be printed and reviewed. Clinic will call patient with appointment information. government program manager also emailed patients information to Whitney Morrow, intake health services coordinator at [facility] to start services.
--- NOTE | 2022-09-01 11:13 | DCPLANNER ---
leave manager called patient due to no primary care physician - no answer at this time
== END 2022-08-28 21:57 | disposition home or self-care (01) ==
PROVIDERS: Emergency Provider Emergency Medicine
DX: R44.0 Auditory hallucinations (principal); F17.210 Nicotine dependence, cigarettes, uncomplicated
CPT/HCPCS: 80053; 80307; 85025; 99283

== ENCOUNTER 2023-02-09 21:55 | Observation (INO) | payer MEDICAID, SELFPAY ==
[2023-02-09 22:22] VITALS: BP 148/96; PULSE 60; RESP 15; TEMP 36.4; O2SAT 99
[2023-02-09] MEDS: pantoprazole 40 mg SDV IVP (22:52)
[2023-02-09 22:54] VITALS: BMI 32.2
[2023-02-09 23:17] LABS: Thyroid Stimulating Hormone 1.34 uIU/mL (0.27-4.20)
--- NOTE | 2023-02-09 23:24 | PM.HP ---
Providers/Chief Complaint Admitting Physician: Guero Pollack MD Chief Complaint: abdomen pain History of Present Illness Joceline Peterson is a 27 year old female with past medical history of methamphetamine use, marijuana use, G4, P4, who presents to [facility] due to complaints of abdominal pain. Patient reports that this morning, she started to develop upper abdominal pain, primarily in the left upper quadrant and also in the right upper quadrant, starting the left rating to the right, the pain abated she felt a bit nauseous, she went to a [employer] restaurant, after that, her abdominal pain returned, feeling nauseous, feeling bloated, she tells me she is quite tender in the right upper quadrant, no history of gallstones in the past, no issues with gallstones in her , she does report a history of methamphetamine use, last use was 4 days ago, she was seen at [facility], CT scan showed gallbladder wall thickening with cholelithiasis suspicious for acute cholecystitis, no biliary duct dilatation or choledocholithiasis AST 16, ALT 15, alk phos 58, bilirubin 0.3 white blood cell count 13.1, she was given pain control, Zosyn, general surgery was consulted by [facility] who is excepted the patient, hospitalist team was called as primary admitting service, currently she does have persistent right upper quadrant pain, he is alert awake, following all commands, no nausea, no vomiting, no fevers, no chills, urine was positive for methamphetamines Review of Systems Const: Denies: fever(s) or chills Card: Denies: chest pain Resp: Denies: dyspnea GI: Denies: abdominal pain : Denies: flank pain Medications/Allergies Home Medications Medication Instructions Recorded Confirmed Last Taken Type aripiprazole 10 mg tablet (Abilify) 10 mg PO DAILY 30 days #30 tabs 01/04/23 02/09/23 02/08/23 12:00 Rx quetiapine 25 mg tablet 50 mg PO BEDTIME 30 days #60 tabs 01/04/23 02/09/23 02/08/23 20:00 Rx Allergies Allergy/AdvReac Type Severity Reaction Status Date / Time No Known Allergies Allergy Verified 01/04/23 11:50 PFSH Acute PFSH: Medical History Cannabis use disorder, mild, abuse Depression 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 Other stimulant use, unspecified, uncomplicated Psychiatric care Self-injurious behavior Smoker Suicidal ideation Surgical History No pertinent past surgical history Family History Father Psychiatric illness Schizophrenia, Unknown Psychiatric illness 2 of her cousins committed suicide Denies family history of CAD (coronary artery disease) Clotting disorder Chronic kidney disease (CKD) Cancer Social History (Updated 02/09/23 @ 23:40 by Guero Pollack MD) Smoking and tobacco status: current every day smoker cigarettes Packs smoked per day: 0.5 Years cigarettes smoked: 6 Quit status (tobacco): has tried quititng Number of times tried to quit tobacco: 1 Second hand smoke exposure: No Smoking risk assessment/counseling performed?: Yes Tobacco counseling given: counseling >3 minutes Alcohol intake: never Substance/Drug Use: current Household members: family Housing: House Marital status details: She is a single mother of 5 children, Current gender identity: Female Vitals/I&O/Wt Last Vital Signs Temp 97.6 F 02/09/23 22:22 Pulse 60 02/09/23 22:22 Resp 15 02/09/23 22:22 BP 148/96 02/09/23 22:22 Pulse Ox 99 02/09/23 22:22 O2 Del Method Room Air 02/09/23 22:54 Weight last 48 hrs Weight 79.974 kg Physical Exam Const: COMMON NORMALS: no acute distress and patient oriented x3 GENERAL APPEARANCE: cooperative, well kempt and well developed HENMT: COMMON NORMALS: normocephalic and Normal external nose present HEAD & SCALP: normocephalic FACE & SINUS: normal facial exam NOSE: Normal external nose present OTHER: Poor oral dentition, upper and lower central incisors, abscesses, poor dentition Eye: COMMON NORMALS: Equal, round and reactive pupils present, EOMs intact bilaterally, conjunctivae normal and no scleral icterus CONJUNCTIVA: Yes conjunctivae normal PUPIL: Yes Equal, round and reactive pupils present Neck/C-Spine: COMMON NORMALS: full ROM, no lymphadenopathy, no JVD and No carotid bruits THYROID: Thyroid normal Lymph: LYMPHATIC: no lymphadenopathy noted Chest: COMMONS NORMALS: normal inspection of the chest Resp: COMMON NORMALS: normal respiratory effort, No retractions, No use of accessory muscles and clear to auscultation bilaterally AUSCULTATION: clear to auscultation bilaterally Cardio: COMMON NORMALS: regular rate, regular rhythm, S1 normal heart sound present, S2 normal heart sound present, No murmurs present (Cardio) and Peripheral pulses 2+ throughout RATE: regular rate RHYTHM: regular rhythm HEART SOUNDS: S1 normal heart sound present and S2 normal heart sound present PERIPHERAL PULSES: Peripheral pulses 2+ throughout GI: COMMON NORMALS: Normal to inspection, nondistended, normoactive bowel sounds present and Soft to palpation PALPATION: Yes Soft to palpation OTHER: Right upper quadrant pain to palpation : COMMON NORMALS: Yes no CVA tenderness Back/Pelvis: COMMON NORMALS: no CVA tenderness Extremity: COMMON NORMALS: normal to inspection, no calf tenderness and no pedal edema Neuro: COMMON NORMALS: patient oriented x3, CN's II-XII intact bilaterally, moves all extremities, no focal motor deficits and no sensory deficits noted MENINGEAL SIGNS: Yes no meningeal signs Psych: COMMON NORMALS: mental status grossly normal, Normal thought process present, cooperative and speech normal APPEARANCE: Yes well kempt SPEECH: Yes normal speech THOUGHT PROCESS: Normal thought process present Skin: COMMON NORMALS: turgor normal and no jaundice GENERAL SKIN EXAM: turgor normal A&P Assessment and plan (1) Acute cholecystitis: (2) Methamphetamine use disorder, severe: (3) Smoker: Plan Acute cholecystitis -Keep n.p.o. -IV fluids -Cipro and Flagyl for antibiotic coverage -Morphine for pain -Right upper quadrant ultrasound -Serial abdominal exams -Zofran for nausea -General surgery has been consulted by ER and at [facility] Methamphetamine abuse, cessation counseling Smoker, cessation counseling Obesity Attestations Medical Necessity Statement*: Patient requires hospitalization, outpatient with observation, for right upper quadrant pain, concerns for acute cholecystitis Diagnoses Acute cholecystitis K81.0 Methamphetamine use disorder, severe F15.20 Smoker F17.200
[2023-02-09] MEDS: enoxaparin 40 mg/0.4 mL Syringe SUBCUT (23:48)
[2023-02-09] MEDS: sodium chloride 0.9% 1,000 ML 125 ML IV (23:49)
[2023-02-09 23:50] VITALS: BP 122/82; PULSE 105; RESP 16; TEMP 36.4; O2SAT 99
[2023-02-10 00:20] VITALS: O2SAT 99
[2023-02-10 03:54] VITALS: BP 124/81; PULSE 99; RESP 15; TEMP 36.8; O2SAT 99
[2023-02-10 04:51] LABS: Basophils # 0.1 10^3/uL (0.0-0.1); Basophils % 0.5 %; Eosinophils # 0.2 10^3/uL (0.0-0.8); Eosinophils % 1.9 %; Hematocrit 38.3 % (36-47); Lymphocytes # 2.8 10^3/uL (0.8-4.8); Lymphocytes % 25.6 %; Mean Corpuscular HGB Conc 32.4 g/dL (30-55); Mean Corpuscular Hemoglobin 29.7 pg (27-33); Mean Corpuscular Volume 91.8 fl (85-98); Mean Platelet Volume 9.6 fL (7.4-10.4); Monocytes # 0.8 10^3/uL (0.2-0.9); Monocytes % 7.5 %; Neutrophils # 6.93 10^3/uL (1.8-7.7); Neutrophils % 64.1 %; Nucleated Red Blood Cells % 0 %; Platelet Count 244 10^3/cmm (157-399); Red Blood Count 4.17 10^6/uL (3.85-5.65); Red Cell Distribution Width 14.2 % (12.1-15.1); White Blood Count 10.81 10^3/uL (3.29-11.43)
[2023-02-10] MEDS: ciprofloxacin 400 MG/200 ML PREMIX 200 MG IV (05:04)
[2023-02-10] MEDS: metroNIDAZOLE IV 500 MG/100 ML PREMIX 100 MG IV (05:05)
[2023-02-10 05:13] LABS: Anion Gap 11.9 (5-19); Blood Urea Nitrogen 8 mg/dL (6-20); Carbon Dioxide 25 mmol/L (22-29); Chloride 107 mmol/L (98-107); Potassium 3.9 mmol/L (3.5-5.1); Sodium 140 mmol/L (136-145)
[2023-02-10 05:14] LABS: Alanine Aminotransferase 13 U/L (0-33); Albumin Level 3.9 g/dL (3.5-5.2); Alkaline Phosphatase 53 U/L (35-105); Aspartate Amino Transferase 16 U/L (0-32); C Reactive Protein 5.9 mg/L (0.0-4.9); Calcium 8.3 mg/dL (8.5-10.5); Globulin 2.6 g/dL (1.3-4.6); Glomerular Filtration Rate 99.6 mL/min (90-130); Glucose 80 mg/dL (65-115); Osmolality Calculated 287 mOsm/kg (285-295); Total Bilirubin 0.5 mg/dL (0.15-1.2); Total Protein 6.5 g/dL (6.6-8.7)
[2023-02-10 05:30] LABS: Amphetamines Screen Urine Positive (Negative); Barbiturates Screen Urine Negative (Negative); Benzodiazepines Screen Urine Negative (Negative); Cocaine Screen Urine Negative (Negative); Opiate Screen Urine Positive (Negative); PCP Screen Urine Negative (Negative); THC Screen Urine Positive (Negative)
--- NOTE | 2023-02-10 06:00 | USR_ITS ---
PROCEDURE INFORMATION: Exam: US Abdomen, Limited; Right Upper Quadrant Exam date and time: 02/10/2023 6:18 AM Age: 27 years old Clinical indication: Abdominal pain; Generalized; Additional info: Ruq pain TECHNIQUE: Imaging protocol: Real time ultrasound of the abdomen with image documentation. Limited exam focused on the right upper quadrant. COMPARISON: CT ABDOMEN PELVIS W CONTRAST 02/09/2023 6:01 PM FINDINGS: Liver: No focal hepatic mass. Gallbladder: Gallbladder wall thickening and edema, along with small quantity pericholecystic fluid. Assessment of a sonographic Agosto sign was not reported by the scanning technologist. Biliary ducts: Normal caliber of the incompletely visualized common bile duct measuring 5 mm in diameter. Pancreas: No acute sonographic abnormality in the visualized proximal pancreas without obscuration of the distal pancreas by bowel gas. Right kidney: Normal right renal morphology. No hydronephrosis. Inferior vena cava: Unremarkable IVC is visualized. US/US gall bladder 77896 IMPRESSION: Gallbladder wall thickening and edema, along with small quantity pericholecystic fluid.
[2023-02-10 08:00] VITALS: BP 130/66; PULSE 103; RESP 16; TEMP 36.6; O2SAT 98
[2023-02-10] MEDS: sodium chloride 0.9% 1,000 ML 125 ML IV (08:01)
[2023-02-10 08:04] VITALS: PULSE 103; RESP 16; O2SAT 99
--- NOTE | 2023-02-10 08:32 | PM.PN ---
Subjective Subjective: Patient is not endorsing any pain No active nausea vomiting Afebrile no leukocytosis We will touch base with Dr. Crowder to see if there is plan for medical management versus surgical Vitals/I&O/Wt Last Vital Signs Temp 98 F 02/10/23 08:00 Pulse 103 H 02/10/23 08:04 Resp 16 02/10/23 08:04 BP 130/66 02/10/23 08:00 Pulse Ox 99 02/10/23 08:04 O2 Del Method Room Air 02/10/23 08:04 02/09/23 02/10/23 02/10/23 22:59 06:59 14:59 Intake Total 300 / 300 1000 / 1000 Output Total 100 / 100 Balance 200 / 200 1000 / 1000 Weight last 48 hrs Weight 79.974 kg Physical Exam Narrative: Patient is laying supine Euvolemic Afebrile Nonfocal neuro exam Currently on room air S1, S2 Normotensive Pleasant and cooperative Right upper quadrant tenderness Data 02/10/23 04:38 02/10/23 04:38 A&P Assessment and plan (1) Acute cholecystitis: (2) Methamphetamine use disorder, severe: (3) Post-traumatic stress disorder, chronic: Plan acute Cholecystitis She is an active smoker, polysubstance abuse, no gallstones on ultrasound, General surgery consulted Patient is n.p.o. No sign of sepsis Afebrile with no leukocytosis We will touch base with Dr. Crowder to see if there is plan through continue medical management IV fluids then we will advance her diet to clear liquids and monitor her on antibiotics over the weekend versus surgical intervention Continue opioids, bowel regimen Full code We will add DVT prophylaxis after general surgery recommendations today Repeat labs for tomorrow Mild tachycardia could be related to use of methamphetamine, patient also does marijuana she is edentulous, Attestations Medical Necessity Statement*: Continue medical management Diagnoses Acute cholecystitis K81.0 Methamphetamine use disorder, severe F15.20 Post-traumatic stress disorder, chronic F43.12
[2023-02-10] MEDS: nicotine 14 mg Patch 1 PATCH TRANSDERMA (10:05)
--- NOTE | 2023-02-10 10:06 | P.CONIM_ITS ---
Providers/Reason For Consult Consulting Physician/Specialty*: Dr. Tomasz Crowder, DO/General surgery Reason for Consult*: Abdominal pain Attending Physician: Josiah Rich MD History of Present Illness History of Present Illness Joceline Peterson is a 27 year old female who presents to the hospital with a several hour history of left upper quadrant epigastric abdominal pain that radiates to the right upper quadrant. She does report nausea and vomiting but denies any hematemesis. She reports that she has had multiple episodes similarly to this. Last 1 was a week ago and she has had multiple in the last few months. Patient explained worse. Eating does not make the pain worse. Nothing seems to make the pain better. The pain does not radiate to her back. She denies any diarrhea, constipation, hematochezia and/or melena. Ultrasound of the gallbladder shows minimally thickened external gallbladder wall. This m orning she has no tenderness to palpation Review of Systems General: Reports: 10 or more systems reviewed and unremarkable except in HPI and below Medications/Allergies Home Medications Medication Instructions Recorded Confirmed Last Taken Type aripiprazole 10 mg tablet (Abilify) 10 mg PO DAILY 30 days #30 tabs 01/04/23 02/09/23 02/08/23 12:00 Rx quetiapine 25 mg tablet 50 mg PO BEDTIME 30 days #60 tabs 01/04/23 02/09/23 02/08/23 20:00 Rx Allergies Allergy/AdvReac Type Severity Reaction Status Date / Time No Known Allergies Allergy Verified 01/04/23 11:50 Current Medications Generic Name Dose Route Start Last Admin Trade Name Freq PRN Reason Stop Dose Admin Enoxaparin Sodium 40 mg 02/09/23 22:30 02/09/23 23:48 Enoxaparin 40 Mg/0.4 Ml Syringe SUBCUT 40 mg Q24H SHEBA Administration Sodium Chloride 1,000 mls @ 100 mls/hr 02/09/23 22:30 02/10/23 08:01 Sodium Chloride 0.9% IV 125 mls/hr .Q10H SHEBA Administration Ciprofloxacin/Dextrose 400 mg in 200 mls @ 200 mls/hr 02/10/23 06:00 02/10/23 06:09 Cipro IV Infused Q12H SHEBA Infusion Protocol Metronidazole 500 mg in 100 mls @ 100 mls/hr 02/10/23 06:00 02/10/23 06:09 Flagyl Iv IV Infused Q8H SHEBA Infusion Protocol PFSH Acute PFSH: Medical History Cannabis use disorder, mild, abuse Depression 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 Other stimulant use, unspecified, uncomplicated Psychiatric care Self-injurious behavior Smoker Suicidal ideation Surgical History No pertinent past surgical history Family History Father Psychiatric illness Schizophrenia, Unknown Psychiatric illness 2 of her cousins committed suicide Denies family history of CAD (coronary artery disease) Clotting disorder Chronic kidney disease (CKD) Cancer Social History Smoking and tobacco status: current every day smoker cigarettes Packs smoked per day: 0.5 Years cigarettes smoked: 6 Quit status (tobacco): has tried quititng Number of times tried to quit tobacco: 1 Second hand smoke exposure: No Smoking risk assessment/counseling performed?: Yes Tobacco counseling given: counseling >3 minutes Alcohol intake: never Substance/Drug Use: current Household members: family Housing: House Marital status details: She is a single mother of 5 children, Current gender identity: Female Vitals/I&O/Wt Last Vital Signs Temp 98 F 02/10/23 08:00 Pulse 103 H 02/10/23 08:04 Resp 16 02/10/23 08:04 BP 130/66 02/10/23 08:00 Pulse Ox 99 02/10/23 08:04 O2 Del Method Room Air 02/10/23 08:04 02/09/23 02/10/23 02/10/23 22:59 06:59 14:59 Intake Total 300 / 300 1000 / 1000 Output Total 100 / 100 Balance 200 / 200 1000 / 1000 Weight last 48 hrs Weight 176 lb 5 oz Physical Exam Narrative: General : Patient is well developed , no acute distress, oriented x3 Head : Normal cephalic, a-traumatic. Ears : Pinnae and external canal are normal. Hearing is normal. Eyes : PERRLA, Sclera and injection are normal. No conjunctival discharge. Nose : Mucous membranes are without erythema. Throat : buccal mucosa is normal, gums are without significant recession or hypertrophy. Lungs : Equal chest rise bilaterally, no use of accessory muscles, trachea is midline. Cor : Rate and rhythm are normal. Abdomen : Soft, ND, NT, no g/r/m Extremities : No edema, no cyanosis or clubbing, dorsalis pedis pulses are present bilaterally, non-tender to palpation of calves. Upper extremities are normal bilaterally. Back : non-tender to palpation, no CVA tenderness. Neuro : CN II - XII intact, Upper and lower extremities have equal and full str ength Data 02/10/23 04:38 02/10/23 04:38 A&P Assessment and plan (1) Methamphetamine use disorder, severe: (2) Epigastric pain: Plan This 27-year-old female with a history of methamphetamine abuse who comes in with leg epigastric pain. Chronic cholecystitis and gastritis are in the differential. We will treat for problems. I will see her in office in 2 weeks. No acute surgical intervention. Coding Level of Care Code 95210 Diagnoses Methamphetamine use disorder, severe F15.20 Epigastric pain R10.13
--- NOTE | 2023-02-10 10:28 | PM.DCS ---
Discharge Providers Date of Admission: 02/09/23 21:55 Date of Discharge: February 10, 2023 Attending Provider at Admission: Guero Pollack MD Attending Provider at Discharge: Josiah Rich MD Diagnoses at Discharge Discharge Diagnosis (1) Methamphetamine use disorder, severe: Status: Inactive (2) Epigastric pain: Status: Inactive Reason for Visit Reason for Visit: abdomen pain Hospital Course Hospital Course 27-year-old female who was admitted for management evaluation of possible cholecystitis after general surgery recommendations patient was discharged home on Augmentin and Protonix, her symptoms are likely related to gastritis, no gallstones identified, no significant right upper quadrant pain, patient will follow up with Dr. Crowder outpatient She remained afebrile without significant leukocytosis. Please see general surgery recommendations for further details Physical Exam Narrative: Tolerating diet Awake and alert No signs of dehydration Currently on room air Pleasant and cooperative Discharge Data Studies Completed and Pending Completed Studies During Hospitalization Category Date Time Status US gall bladder 20444 Routine Ultrasound 02/10/23 06:00 Completed Pending at discharge Category Date Time Status CMP [Comprehensive Metabolic Panel] AM LABS Lab 02/11/23 04:00 Ordered Complete Blood Count w/Auto AM LABS Lab 02/11/23 04:00 Ordered Radiology Impressions Gallbladder Ultrasound 02/10/23 06:00 IMPRESSION: Gallbladder wall thickening and edema, along with small quantity pericholecystic fluid. Laboratory Results WBC 10.81 10^3/uL (3.29-11.43) 02/10/23 04:38 RBC 4.17 10^6/uL (3.85-5.65) 02/10/23 04:38 Hgb 12.40 g/dL (11.27-16.99) 02/10/23 04:38 Hct 38.3 % (36-47) 02/10/23 04:38 MCV 91.8 fl (85-98) 02/10/23 04:38 MCH 29.7 pg (27-33) 02/10/23 04:38 MCHC 32.4 g/dL (30-55) 02/10/23 04:38 RDW 14.2 % (12.1-15.1) 02/10/23 04:38 Plt Count 244 10^3/cmm (157-399) 02/10/23 04:38 MPV 9.6 fL (7.4-10.4) 02/10/23 04:38 Neut % (Auto) 64.1 % 02/10/23 04:38 Lymph % (Auto) 25.6 % 02/10/23 04:38 Edmunds % (Auto) 7.5 % 02/10/23 04:38 Eos % (Auto) 1.9 % 02/10/23 04:38 Baso % (Auto) 0.5 % 02/10/23 04:38 Neut # (Auto) 6.93 10^3/uL (1.8-7.7) 02/10/23 04:38 Lymph # (Auto) 2.8 10^3/uL (0.8-4.8) 02/10/23 04:38 Edmunds # (Auto) 0.8 10^3/uL (0.2-0.9) 02/10/23 04:38 Eos # (Auto) 0.2 10^3/uL (0.0-0.8) 02/10/23 04:38 Baso # (Auto) 0.1 10^3/uL (0.0-0.1) 02/10/23 04:38 Nucleated RBC % (auto) 0 % 02/10/23 04:38 Nucleated RBCs # 0.0 /100WBC 02/10/23 04:38 Sodium 140 mmol/L (136-145) 02/10/23 04:38 Potassium 3.9 mmol/L (3.5-5.1) 02/10/23 04:38 Chloride 107 mmol/L (98-107) 02/10/23 04:38 Carbon Dioxide 25 mmol/L (22-29) 02/10/23 04:38 Anion Gap 11.9 (5-19) 02/10/23 04:38 BUN 8 mg/dL (6-20) 02/10/23 04:38 Creatinine 0.7 mg/dL (0.5-0.9) 02/10/23 04:38 GFR Calculation 99.6 mL/min (90-130) 02/10/23 04:38 Glucose 80 mg/dL (65-115) 02/10/23 04:38 Calculated Osmolality 287 mOsm/kg (285-295) 02/10/23 04:38 Calcium 8.3 mg/dL (8.5-10.5) L 02/10/23 04:38 Total Bilirubin 0.5 mg/dL (0.15-1.2) 02/10/23 04:38 AST 16 U/L (0-32) 02/10/23 04:38 ALT 13 U/L (0-33) 02/10/23 04:38 Alkaline Phosphatase 53 U/L (35-105) 02/10/23 04:38 C-Reactive Protein 5.9 mg/L (0.0-4.9) H 02/10/23 04:38 Total Protein 6.5 g/dL (6.6-8.7) L 02/10/23 04:38 Albumin 3.9 g/dL (3.5-5.2) 02/10/23 04:38 Globulin 2.6 g/dL (1.3-4.6) 02/10/23 04:38 TSH 1.34 uIU/mL (0.27-4.20) 02/09/23 22:38 Ser , Semi-Qnt 1.00 mIU/mL 02/09/23 23:52 Urine Opiates Screen Positive ng/mL (Negative) H 02/10/23 04:30 Ur Barbiturates Screen Negative ng/mL (Negative) 02/10/23 04:30 Ur Phencyclidine Scrn Negative ng/mL (Negative) 02/10/23 04:30 Ur Amphetamines Screen Positive ng/mL (Negative) H 02/10/23 04:30 U Benzodiazepines Scrn Negative ng/mL (Negative) 02/10/23 04:30 Urine Cocaine Screen Negative ng/mL (Negative) 02/10/23 04:30 U Marijuana (THC) Screen Positive ng/mL (Negative) H 02/10/23 04:30 Vitals Last Vital Signs Temp 98 F 02/10/23 08:00 Pulse 103 H 02/10/23 08:04 Resp 16 02/10/23 08:04 BP 130/66 02/10/23 08:00 Pulse Ox 99 02/10/23 08:04 O2 Del Method Room Air 02/10/23 08:04 Discharge Plan Discharge Patient Disposition: Home Condition: Stable Prescriptions: New amoxicillin-pot clavulanate 875-125 mg tablet 1 tab PO BID Qty: 20 0RF Protonix 40 mg tablet,delayed release (DR/EC) 40 mg PO BID 56 Days Qty: 112 0RF Continued aripiprazole [Abilify] 10 mg tablet 10 mg PO DAILY 30 Days Qty: 30 1RF quetiapine 25 mg tablet 50 mg PO BEDTIME 30 Days Qty: 60 1RF Discharge Orders: Discharge Order (Routine); Ordered 02/10/23 Ordered By: Josiah Rich Referrals: Tomasz Crowder DO [Physician] - 2 weeks (We have notified your physician's clinic of the need for a follow-up appointment to be scheduled. If you have not heard from them within the next 2 business days, please call them directly. You may also reach out to our automotive internet sales manager at [phone] and she can assist you.) Patient Instructions: Amoxicillin/Clavulanate Potassium (By mouth), Pantoprazole (By mouth), Opioid Safety Discharge Attestations Time Spent in Discharge Care*: greater than 30 min Status at Discharge: Cognitive status at discharge: cognitively intact, Behavioral status at discharge: cooperative, Quality Metrics Clinical Quality Measures [ No reported AMI, CVA or VTE this stay] Coding Level of Care Code Acute Code for Chg Fwd Diagnoses Methamphetamine use disorder, severe F15.20 Epigastric pain R10.13
[2023-02-10] MEDS: pantoprazole 40 mg SDV IVP (11:04)
[2023-02-10 12:00] VITALS: BP 128/62; PULSE 108; RESP 15; TEMP 36.6; O2SAT 99
[2023-02-10 13:56] VITALS: BP 128/62; PULSE 108; RESP 15; TEMP 36.6; O2SAT 99
== END 2023-02-10 11:45 | disposition home or self-care (01) ==
PROVIDERS: Admitting Provider Family Medicine; Visit Provider Internal Medicine
DX: K81.0 Acute cholecystitis (principal); F15.20 Other stimulant dependence, uncomplicated; R10.13 Epigastric pain; F17.210 Nicotine dependence, cigarettes, uncomplicated; R00.0 Tachycardia, unspecified
CPT/HCPCS: 36415; 76705; 80053; 80306; 84443; 84702; 85025; 86140; 94664; 96372; C9113; G0378; G0379; J0744; J1650; J3490; J7030

== ENCOUNTER → 2023-06-27 13:55 | Outpatient (BNVA) | payer OTHER, SELFPAY | PROVIDERS: Visit Provider Nurse Practitioner | DX: Z79.899 Other long term (current) drug therapy (principal) | CPT/HCPCS: 80061; 83036 ==

== ENCOUNTER 2024-10-29 10:08 | Oncology outpatient (recurring) (ONCR) | payer MEDICAID, SELFPAY ==
[2024-10-29 10:44] VITALS: BP 114/76; PULSE 112
[2024-10-29] MEDS: rho(d) immune globulin 1,500 unit Syringe 1500 UNIT IM (10:45)
== END 2024-11-10 23:59 | disposition home or self-care (01) ==
PROVIDERS: PCP Family Medicine; Visit Provider Family Medicine
DX: O26.899 Other specified pregnancy related conditions, unspecified trimester (principal); Z79.899 Other long term (current) drug therapy; Z67.91 Unspecified blood type, Rh negative
CPT/HCPCS: 96372; J2790

== ENCOUNTER 2024-12-22 10:50 | Outpatient (CLI) | payer MEDICAID, SELFPAY ==
[2024-12-22 10:55] VITALS: BMI 39.4
[2024-12-22 10:58] VITALS: BP 142/93; PULSE 121
[2024-12-22 11:15] VITALS: BP 127/87; PULSE 111
[2024-12-22 11:26] VITALS: BP 129/88; PULSE 121
== END 2024-12-22 11:00 | disposition home or self-care (01) ==
LOC: OPOB 10:53 → OBGYN 10:54
PROVIDERS: PCP Family Medicine; Visit Provider Family Medicine
DX: O24.419 Gestational diabetes mellitus in pregnancy, unspecified control (principal); Z3A.00 Weeks of gestation of pregnancy not specified
CPT/HCPCS: 59025; 99211

== ENCOUNTER 2024-12-25 09:24 | Outpatient (CLI) | payer OTHER, SELFPAY ==
[2024-12-25 09:32] VITALS: BMI 39.3
[2024-12-25 09:38] VITALS: BP 108/66; PULSE 127
[2024-12-25 09:58] VITALS: BP 107/67; PULSE 113
[2024-12-25 10:10] VITALS: BP 107/66; PULSE 113; RESP 16
== END 2024-12-25 10:10 | disposition home or self-care (01) ==
LOC: OPOB 09:28 → OBGYN 09:29
PROVIDERS: PCP Family Medicine; Visit Provider Family Medicine
DX: O24.419 Gestational diabetes mellitus in pregnancy, unspecified control (principal); Z3A.00 Weeks of gestation of pregnancy not specified
CPT/HCPCS: 59025; 99211

== ENCOUNTER 2024-12-29 12:35 | Outpatient (CLI) | payer MEDICAID, SELFPAY ==
[2024-12-29 12:44] VITALS: RESP 18; BMI 41.1
[2024-12-29 12:45] VITALS: RESP 18
[2024-12-29 12:46] VITALS: BP 139/83; PULSE 113
[2024-12-29 13:06] VITALS: BP 140/67; PULSE 109
== END 2024-12-29 13:13 | disposition home or self-care (01) ==
LOC: OPOB 12:39 → OBGYN 12:39
PROVIDERS: PCP Family Medicine; Visit Provider Family Medicine
DX: O24.419 Gestational diabetes mellitus in pregnancy, unspecified control (principal); Z3A.00 Weeks of gestation of pregnancy not specified
CPT/HCPCS: 59025

== ENCOUNTER → 2024-12-31 13:50 | Outpatient (BNVA) | payer MEDICAID, SELFPAY | PROVIDERS: PCP Family Medicine; Visit Provider Nurse Practitioner | DX: Z79.899 Other long term (current) drug therapy (principal) | CPT/HCPCS: 80061; 83036 ==

== ENCOUNTER 2025-01-05 11:36 | Outpatient (CLI) | payer MEDICAID, SELFPAY ==
[2025-01-05 11:45] VITALS: BP 145/98; PULSE 106
[2025-01-05 12:00] VITALS: BP 146/93; PULSE 120
[2025-01-05 12:28] LABS: Glucose Urine UA Negative (Normal); Nitrate Urine Negative (Negative); Specific Gravity, Urine 1.017 (1.005-1.030)
[2025-01-05 12:30] VITALS: BP 121/93; PULSE 107
[2025-01-05 12:31] LABS: Add Urine Microscopic? YES
[2025-01-05 12:33] LABS: Hematocrit 36.1 % (36-47); Hemoglobin 12.00 g/dL (11.27-16.99); Mean Corpuscular HGB Conc 33.2 g/dL (30-55); Mean Corpuscular Hemoglobin 31.2 pg (27-33); Mean Corpuscular Volume 93.8 fl (85-98); Nucleated Red Blood Cells % 0 %; Platelet Count 189 10^3/cmm (157-399); Red Blood Count 3.85 10^6/uL (3.85-5.65); White Blood Count 13.00 10^3/uL (3.29-11.43)
[2025-01-05 12:51] LABS: Alanine Aminotransferase 12 U/L (0-33); Albumin Level 3.6 g/dL (3.5-5.2); Alkaline Phosphatase 137 U/L (35-105); Anion Gap 16.3 (5-19); Aspartate Amino Transferase 19 U/L (0-32); Blood Urea Nitrogen 5 mg/dL (6-20); Calcium 9.0 mg/dL (8.5-10.5); Carbon Dioxide 19 mmol/L (22-29); Chloride 105 mmol/L (98-107); Creatinine Clr Calc Pharmacy 306.8324; Globulin 3.0 g/dL (1.3-4.6); Glucose 92 mg/dL (65-115); Osmolality Calculated 279 mOsm/kg (285-295); Potassium 4.3 mmol/L (3.5-5.1); Sodium 136 mmol/L (136-145); Total Protein 6.6 g/dL (6.6-8.7); Uric Acid 4.7 mg/dL (2.4-5.7)
[2025-01-05 12:55] LABS: UPRO/UCREAT Ratio 0.20 mg/mg CR
== END 2025-01-05 12:40 | disposition home or self-care (01) ==
LOC: OPOB 11:40 → OBGYN 11:41
PROVIDERS: PCP Family Medicine; Visit Provider Family Medicine
DX: O24.419 Gestational diabetes mellitus in pregnancy, unspecified control (principal); Z3A.00 Weeks of gestation of pregnancy not specified
CPT/HCPCS: 36415; 59025; 80053; 81001; 82570; 83615; 84156; 84550; 85025; 99211

== ENCOUNTER 2025-01-08 07:10 | Inpatient (IN) | payer MEDICAID, SELFPAY ==
[2025-01-08] VITALS (54 sets, daily range): BP systolic 125–172; BP diastolic 68–100; PULSE 88–116; RESP 17; O2SAT 97–100; BMI 40.8
--- OUTSIDE RECORDS SUMMARY | 2025-01-08 07:17 | XMS_ITS | Encounter Summary ---
Author Organization [facility] Address [address] [place]: [place] [address] Care Team Providers Care Pharmacy Specialist Name Role Phone Sari Up MD Primary Care Provider [phone] Encounter Details Date Type Department Care Team (Late st Contact Info) Description 11/12/2007 Outpatient Historical Sari Maradiaga, COMPENSATOR WORKER [address] [place] [id number] Social History Tobacco Use Types Packs/Day Years Used Date Smoking Tobacco: Never Assessed Comments Unknown Sex and Gender Information Value Date Recorded Sex Assigned at Not on file Legal Sex Female 7:00 AM [employer] SAL[employer] Gender Identity Not on file Sexual Orientation Not on file documented as of this encounter Plan of Treatment Not on file documented as of this encounter Procedures Procedure Name Priority Date/Time Associated Diagnosis Comments CHLAMYDIA TRACHOMATIS CULTURE Routine 11/12/2007 1:05 PM CDT GC CULTURE Routine 11/12/2007 1:05 PM CDT CHLAMYDIA TRACHOMATIS CULTURE Routine 11/12/2007 1:03 PM CDT GC CULTURE Routine 11/12/2007 1:02 PM CDT documented in this encounter Results * CHLAMYDIA TRACHOMATIS CULTURE (11/12/2007 1:05 PM CDT) CHLAMYDIA TRACHOMATIS CULTURE see sep report [facility] 11/12/2007 1:05 PM CDT 11/13/2007 7:56 AM CDT Physician Non-Staff MICROBIOLOGY - GENERAL ORDER [place] Final Result Performing Organization Address City/[facility] Co de Phone Number [facility] CLIA# [id number] [address] [place] [address] * GC CULTURE (11/12/2007 1:05 PM CDT) FINAL REPORT No Neisseria gonorrhoeae isolated Evidence Tape Intact INTERFACE SYSTEM Specimen from genital system (specimen) (Rectal) 11/12/2007 1:05 PM CDT 11/12/2007 6:34 PM CDT Physician Non-Staff MICROBIOLOGY - GENERAL ORDER [place]ET[place] Final Result Performing Organization Address City/[facility] de Phone Number INTERFACE SYSTEM Refer to clinic/hospital department * CHLAMYDIA TRACHOMATIS CULTURE (11/12/2007 1:03 PM CDT) CHLAMYDIA TRACHOMATIS CULTURE see sep report [facility] 11/12/2007 1:03 PM CDT 11/13/2007 7:56 AM CDT Physician Non-Staff MICROBIOLOGY - GENERAL ORDER [place] Final Result Performing Organization Address City/[facility] Co de Phone Number [facility] CLIA# [id number] [address] [place] [address] * GC CULTURE (11/12/2007 1:02 PM CDT) FINAL REPORT No Neisseria gonorrhoeae isolated Evidence Tape Intact INTERFACE SYSTEM Specimen from genital system (specimen) 11/12/2007 1:02 PM CDT 11/12/2007 6:34 PM CDT us Physician Non-Staff MICROBIOLOGY - GENERAL ORDER [place] Final Result Performing Organization Address City/[facility]/ZIP Co de Phone Number INTERFACE SYSTEM Refer to clinic/hospital department documented in this encounter Visit Diagnoses Not on filedocumented in this encounter Care Teams Pharmacy Specialist Relationship Specialty Start Date End Date Sari Up MD PCP - General Family Practice 03/05/12 documented as of this encounter
--- OUTSIDE RECORDS SUMMARY | 2025-01-08 07:17 | XMS_ITS | Clinical Summary ---
Author Organization [facility] Address [address] Niñon: Epic Prelude ADT [place]O [address] Care Team Providers Care Cassandra Developer Name Role Phone Griselda Martinez Primary Care Provider +1- [phone] Allergies No known active allergies Medications ibuprofen (MOTRIN) 800 mg tablet Take 1 Tablet (800 mg) by mouth every 8 hours as needed for Pain. 20 Tablet 2 06/01/2015 Active ARIPiprazole (ABILIFY) 5 mg tablet Take 5 mg by mouth daily. Active QUEtiapine (SEROquel) 25 mg tablet Take 25 mg by mouth daily at bedtime. Active omeprazole (PriLOSEC) 40 mg Capsule, Delayed Release(E.C.)Ind ications:Gastroe sophageal reflux disease, unspecified whether esophagitis present Take 1 Capsule (40 mg) by mouth daily. 90 Capsule 3 01/17/2024 Active Active Problems Problem Noted Date Diagnosed Date Calculus of gallbladder with acute on chronic cholecystitis without obstruction 05/01/2023 Cholecystitis 05/01/2023 Positive urine drug screen 04/10/2015 Overview (09/09/2020): 03/2015: +amphetamine and cannabis Methamphetamine use 04/10/2015 Iron deficiency anemia 03/18/2015 Tubal ligation evaluation 03/14/2015 Poor dentition 03/31/2014 Resolved Problems Problem Noted Date Diagnosed Date Resolved Date Pre-eclampsia, mild 05/29/2015 06/14/19 16 Drug use complicating 05/18/2015 06/14/2015 with uncertain tri es in third trimester 03/14/2015 06/14/2015 care insufficient 03/14/2015 0 06/14/2015 Supervision of other normal , antepartum 03/14/2015 06/14/2015 Adjustment disorder with depressed mood 07/11/2014 03/08/2015 Headache 07/11/2014 03/08/2015 depression 07/11/20142014 Lumbar paraspinal muscle spasm 07/11/2014 03/08/2015 Paresthesia of right arm 06/27/2014 GERD (gastroesophageal reflux disease) 05/05/2014 03/08/2015 Nausea/vomiting in 05/05/2014 06/04/2014 UTI in , antepartum 04/29/2014 06/04/2014 History of macrosomia in inf ant in prior , currently 2014 07/11/2014 Rh negative status during 04/02/2014 06/14/2015 Iron deficiency anemia 04/02/201403/08 Late care complicating 03/31/2014 07/11/2014 Overview (09/08/2020): Dating from 26 wk Supervision of other normal 03/31/2014 07/11/2014 Contraception management 09/07/2012 Insufficient care 06/03/2012 0 07/25/2012 Recurrent UTI (urinary tract infection) complicating 05/09/2012 05/25/2012 Rh negative status during 02/26/2012 09/07/2012 Depression 02/22/2012 07/25/2012 Teen 02/22/2012 07/25/2012 Supervision of other normal 02/22/2012 07/25/2012 Recurrent acute tonsillitis 12/07/2010 01/03/2011 Tonsillar hypertrophy 12/07/20102010 Chronic tonsillitis 12/07/2010 01/04/20 11 Encounters Date Type Department Care Team Description 12/30/2024 External Device Data [facility]STRACTION Provider, Abstract 10/14/2024 External Device Data [facility] Provider, Abstract from Last 3 Months Immunizations Immunization Administration Dates Next Due (ADACEL/BOOSTRIX)(10 YR UP) TDAP VACCINE, 0.5ML, IM 04/23/2014 INFLUENZA VACCINE QUADRIVALE NT 3 YR UP PF IM 04/09/2015 INFLUENZA VACCINE QUADRIVALE NT 6 MOS UP PF IM 04/09/2015 Influenza Seasonal Unspecifi ed Formulation PF IM 04/23/2014 Influenza Vaccine Split 3+ Yrs PF IM 04/23/2014 Influenza Vaccine Split 3+ Y rs PF IM VFC 02/22/2012 Rho (D) IMMUNE GLOBULIN 1,50 0 UNIT(300 MCG) INJECTION 05/31/2015,03/08/2015,03/31/2014,2011 Td(adult) Unspecified Formulation 04/23/2014 Tdap Vaccine > 7 Yo IM VFC 04/02/2012 Family History Medical History Relation Name Comments Healthy Father Seizures Father Healthy Maternal Grandfather Healthy Maternal Grandmother Healthy Mother Healthy Paternal Grandfather Healthy Paternal Grandmother Healthy Sister Relation Name Status Comments Father Alive Maternal Grandfather Alive Maternal Grandmother Alive Mother Alive Paternal Grandfather Alive Paternal Grandmother Alive Sister Alive Social History Tobacco Use Types Packs/Day Years Used Date Smoking Tobacco: Every Day Cigarettes Passive Smoke Exposure: Current Smokeless Tobacco: Never Tobacco Cessation:Ready to Q uit: No; Counseling Given: Yes Alcohol Use Standard Drinks/Week Comments No 0 (1 standard drink = 0.6 oz pur e alcohol) Feeling Safe Answer Date Recorded Are you in a relationship wi th someone who hurts you emotionally and/or physically? 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 Gender Identity Not on file Sexual Orientation Not on file Last Filed Vital Signs Vital Sign Reading Time Taken Comments Blood Pressure 121/82 08/05/2024 3:02 PM CDT Pulse 140 08/05/2024 3:02 PM CDT Temperature 37.1 C (98.8 F) 08/05/2024 3:02 PM CDT Respiratory Rate 22 08/05/2024 3:02 PM CDT Oxygen Saturation 98% 08/05/2024 3:02 PM CDT Inhaled Oxygen Concentration - - Weight 100.9 kg (222 lb 6.4 oz) 08/05/2024 3:02 PM CDT Height 157.5 cm (5' 2 ) 08/05/2024 3:02 PM CDT Body Mass Index 40.68 08/05/2024 3:02 PM CDT Plan of Treatment Health Maintenance Due Date Last Done Comments HEPATITIS B VACCINES (1 of 3 - 19+ 3-dose series) 2013 Preventative Visit-Managed Medicaid 2013 HPV/Cotest (21-29) 2015 HPV VACCINES (1 - 3-dose SCD M series) 2021 CERVICAL CANCER SCREENING 2024 HPV/Cotest (30-65) 2024 PAP SMEAR 2024 DTAP/TDAP/TD VACCINES (4 - T d or Tdap) 04/23/2024 04/23/2014, 04/23/2014, 04/02/2012 INFLUENZA VACCINE (#1) 2024 , 04/09/2015, 04/09/2015, Additional history exists Medical Devices Implanted Type Area Education Specialist Device Identifier Shelf Expiration Date Model / Serial / Lot Clip Crtg Med/Lrg 1112 - Sn/A Implanted:Qty: 1 on 04/25/2023 by Raj Barone DO at [facility] Clip N/A: Abdomen [employer] 02/09/2028 1112 / N/A / [id number] Insurance [facility] [employer] MEDICAID Care Teams Cassandra Developer Relationship Specialty Start Date End Date Griselda Martinez DO [address] [facility] [place] [address] PCP - General Family Practice 02/15/23
--- OUTSIDE RECORDS SUMMARY | 2025-01-08 07:17 | XMS_ITS | Clinical Summary ---
Author Organization [facility] Address [address] [place] [address] Care Team Providers Care Overhead Cleaner Name Role Phone Sari Up MD Primary Care Provider +1- [phone] Allergies No known active allergies Medications ibuprofen (MOTRIN) 800 mg tablet Take 1 Tablet (800 mg) by mouth every 8 hours as needed for Pain. 20 Tablet 2 06/01/2015 Active PNV with Ca,no.72-iron,ca rb-FA ( PLUS) 29 mg iron- 1 mg TabletIndication s:Other iron deficiency anemia Take 1 Tablet by mouth daily. 30 Tablet 1 06/14/2015 Active Active Problems Problem Noted Date Diagnosed Date Methamphetamine use 04/10/2015 Positive urine drug screen 04/10/2015 Overview (04/10/2015): 03/2015: +amphetamine and cannabis Iron deficiency anemia 03/18/2015 Tubal ligation evaluation 03/14/2015 Poor dentition 03/31/2014 Resolved Problems Problem Noted Date Diagnosed Date Resolved Date Pre-eclampsia, mild 05/29/2015 06/14/19 16 Drug use complicating 05/18/2015 06/14/2015 Supervision of other normal , antepartum 03/14/2015 06/14/2015 care insufficient 03/14/2015 0 06/14/2015 with uncertain tri es in third trimester 03/14/2015 06/14/2015 Adjustment disorder with depressed mood 07/11/2014 03/08/2015 depression 07/11/20142014 Lumbar paraspinal muscle spasm 07/11/2014 03/08/2015 Headache 07/11/2014 03/08/2015 Paresthesia of right arm 06/27/2014 GERD (gastroesophageal reflux disease) 05/05/2014 03/08/2015 Nausea/vomiting in 05/05/2014 06/04/2014 UTI in , antepartum 04/29/2014 06/04/2014 History of macrosomia in inf ant in prior , currently 2014 07/11/2014 Rh negative status during 04/02/2014 06/14/2015 Overview (2014): Iron deficiency anemia 04/02/201403/08 Late care complicating 03/31/2014 07/11/2014 Overview (06/27/2014): Dating from 26 wk Supervision of other normal 03/31/2014 07/11/2014 Contraception management 09/07/2012 Insufficient care 06/03/2012 0 07/25/2012 Recurrent UTI (urinary tract infection) complicating 05/09/2012 05/25/2012 Rh negative status during 02/26/2012 09/07/2012 Supervision of other normal 02/22/2012 07/25/2012 Depression 02/22/2012 07/25/2012 Teen 02/22/2012 07/25/2012 Recurrent acute tonsillitis 12/07/2010 01/03/2011 Chronic tonsillitis 12/07/2010 01/04/20 11 Tonsillar hypertrophy 12/07/20102010 Immunizations Immunization Administration Dates Next Due (ADACEL/BOOSTRIX)(10 YR UP) TDAP VACCINE, 0.5ML, IM 04/23/2014 INFLUENZA VACCINE QUADRIVALE NT 3 YR UP PF IM 04/09/2015 Influenza Vaccine Split 3+ Yrs PF IM 04/23/2014 Influenza Vaccine Split 3+ Y rs PF IM VFC 02/22/2012 Rho (D) IMMUNE GLOBULIN 1,50 0 UNIT(300 MCG) INJECTION 05/31/2015,03/08/2015,03/31/2014,2011 Tdap Vaccine > 7 Yo IM VFC [...] Packs/Day Years Used Date Smoking Tobacco: Never Smokeless Tobacco: Never Alcohol Use Standard Drinks/Week Comments No 0 (1 standard drink = 0.6 oz pur e alcohol) Comments No Sex and Gender Information Value Date Recorded Sex Assigned at Not on file Legal Sex 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 Gender Identity Not on file Sexual Orientation Not on file Occupation Industry Job Start Date Job End Date Not on file Not on file Not on file Not on file Last Filed Vital Signs Vital Sign Reading Time Taken Comments Blood Pressure 106/78 06/14/2015 10:33 AM REINFORCING STEEL WORKER Pulse 109 06/14/2015 10:33 AM REINFORCING STEEL WORKER Temperature 36.4 C (97.6 F) 06/14/2015 10:33 AM REINFORCING STEEL WORKER Respiratory Rate 18 06/14/2015 10:33 AM REINFORCING STEEL WORKER Oxygen Saturation 97% 06/14/2015 10:33 AM REINFORCING STEEL WORKER Inhaled Oxygen Concentration - - Weight 64.9 kg (143 lb) 06/14/2015 10:33 AM REINFORCING STEEL WORKER Height 157.5 cm (5' 2 ) 06/14/2015 10:33 AM REINFORCING STEEL WORKER Body Mass Index 26.16 06/14/2015 10:33 AM REINFORCING STEEL WORKER Plan of Treatment Health Maintenance Due Date Last Done Comments HEPATITIS B VACCINES (1 of 3 - 19+ 3-dose series) 2013 HPV/Cotest (21-29) 2015 HPV VACCINES (1 - 3-dose SCD M series) 2021 CERVICAL CANCER SCREENING 2024 HPV/Cotest (30-65) 2024 PAP SMEAR 2024 DTAP/TDAP/TD VACCINES (3 - T d or Tdap) 04/23/2024 04/23/2014, 04/02/2012 INFLUENZA VACCINE (#1) 2024 5, 04/23/2014, 02/22/2012 Insurance [place] Directives For more information, please contact: [phone] * Full Code (Latest Code Status on File) Date Activated Date Inactivated Comments 05/30/2015 10:35 AM 06/01/2015 5:29 PM * Full Code Date Activated Date Inactivated Comments 05/30/2015 4:54 AM 05/30/2015 10:35 AM * Full Code Date Activated Date Inactivated Comments 05/29/2015 9:24 PM 05/30/2015 4:54 AM Care Teams Overhead Cleaner Relationship Specialty Start Date End Date Sari Up MD PCP - General Family Practice 03/05/12
[2025-01-08] MEDS: oxytocin 30 UNIT/500 ML BAG IV (07:35)
[2025-01-08 07:57] LABS: Hematocrit 34.8 % (36-47); Hemoglobin 11.60 g/dL (11.27-16.99); Mean Corpuscular HGB Conc 33.3 g/dL (30-55); Mean Corpuscular Hemoglobin 31.2 pg (27-33); Mean Corpuscular Volume 93.5 fl (85-98); Nucleated Red Blood Cells % 0 %; Platelet Count 218 10^3/cmm (157-399); Red Blood Count 3.72 10^6/uL (3.85-5.65); White Blood Count 11.23 10^3/uL (3.29-11.43)
[2025-01-08] MEDS: penicillin g potassium 5,000,000 UNIT in sodium chloride 0.9% (plus) 100 ML 100 UNIT IV (08:15)
[2025-01-08 08:31] LABS: PCP Screen Urine Negative (Negative)
--- NOTE | 2025-01-08 08:38 | P.HP_ITS ---
Providers/Chief Complaint 2 Admitting Physician: Pranay Fernandes MD Primary Care Provider: Pranay Fernandes MD Chief Complaint: IOL HPI GAS WELL PUMPER History of Present Illness Joceline Peterson is a 29 year old G6, P5 female that presented at 38 weeks 5 days for induction of labor due to uncontrolled gestational diabetes. Most recent growth ultrasound showed estimated baby weight around 9 pounds. Patient had no other complications during . Patient was Rh- and received RhoGAM. GBS is unknown but it is pending. Labs Blood type OB HPI: A (-) negative Rubella: Immune RPR: Negative GBS: Unknown HBsAG: Negative L&D/Induction Specific History Indication for induction OB: medical complication Planned induction method: per pitocin protocol Other Information: also AROM Review of Systems 2 General: Reports: 10 or more systems reviewed and unremarkable except in HPI and below Const: Denies: fever(s), chills, change in weight or fatigue Eyes: Denies: change in vision ENMT: Denies: odynophagia Card: Denies: chest pain Resp: Denies: dyspnea GI: Denies: abdominal pain, dysphagia or hematochezia : Denies: dysuria Skin/Breast: Denies: rash, nipple discharge or breast mass Neuro: Denies: seizure-like activity Beni/Lymph: Denies: easy bruising Medications/Allergies Home Medications ?Medication ?Instructions ?Recorded ?Confirmed ?Last Taken ?Type aripiprazole 10 mg tablet (Abilify) 10 mg PO DAILY 30 days #30 tabs 12/23/24 01/05/25 Unknown Rx quetiapine 25 mg tablet 50 mg (2 x 25 mg) PO BEDTIME 30 12/23/24 01/05/25 Unknown Rx days #60 tabs Allergies Allergy/AdvReac Type Severity Reaction Status Date / Time No Known Allergies Allergy Verified 12/31/24 13:23 PFSH GAS WELL PUMPER 2 PFSH: Medical History (Updated 01/08/25 @ 08:45 by Pranay Fernandes MD) 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 Methamphetamine use disorder, severe Post-traumatic stress disorder, chronic Epigastric pain Acute cholecystitis Psychiatric care Other stimulant use, unspecified, uncomplicated Cannabis use disorder, mild, abuse 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 Self-injurious behavior Suicidal ideation Smoker Depression Surgical History No pertinent past surgical history Family History Father Psychiatric illness Schizophrenia, Unknown Psychiatric illness 2 of her cousins committed suicide Denies family history of CAD (coronary artery disease) Clotting disorder Chronic kidney disease (CKD) Cancer Social History Smoking and tobacco/nicotine status: current every day tobacco/nicotine user cigarettes Packs smoked per day: 0.5 Years cigarettes smoked: 6 Quit status (tobacco/nicotine): has tried quititng Number of times tried to quit tobacco: 1 Second hand smoke exposure: No Alcohol intake: never Substance/Drug Use: current Household members: family Housing: House Marital status details: She is a single mother of 5 children, Current gender identity: Female Vitals/I&O/Wt Last Vital Signs Pulse 93 01/08/25 08:22 BP 152/86 01/08/25 08:22 Physical Exam 2 Const: COMMON NORMALS: no acute distress and patient oriented x3 Resp: COMMON NORMALS: normal respiratory effort and No retractions Cardio: COMMON NORMALS: no JVD, regular rate and regular rhythm GI: OTHER: Gravid uterus Extremity: GENERAL: Yes edema Neuro: COMMON NORMALS: moves all extremities, no focal motor deficits and no sensory deficits noted Psych: COMMON NORMALS: mental status grossly normal Skin: COMMON NORMALS: no rashes or lesions noted Data 01/08/25 07:25 01/08/25 07:25 Results Labs OB ([facility]): 2 Obstetrics 10/13/24 Blood Type Pending Today Antibody Screen Pending Today Hct, (36-47) 34.8 % L Today Hgb, (11.27-16.99) 11.60 g/dL Today Rho(D) Type Pending Today Plt Count, (157-399) 218 10^3/cmm Today Hemoglobin A1c, (4.0-6.0) 5.4 % 12/31/24 Uric Acid, (2.4-5.7) 4.7 mg/dL 01/05/25 Urine Opiates Screen, (Negative) Negative ng/mL Today Ur Barbiturates Screen, (Negative) Negative ng/mL Today Ur Phencyclidine Scrn, (Negative) Negative ng/mL Today Ur Amphetamines Screen, (Negative) Negative ng/mL Today U Benzodiazepines Scrn, (Negative) Negative ng/mL Today Urine Cocaine Screen, (Negative) Negative ng/mL Today U Marijuana (THC) Screen, (Negative) Positive ng/mL H Tod ay A&P Assessment and plan 1. Gestational diabetes mellitus (GDM) affecting : Monitor blood sugars. The patient needs to be induced early as she has not been well-controlled. Patient will be started on Pitocin and artificial rupture of membranes was obtained after informed consent. Clear fluid was noted. 2. 38 weeks gestation of : 3. Elevated blood pressure affecting in third trimester, antepartum: Blood pressures have been elevated but not severe. Will go ahead and send labs for preeclampsia workup. Patient does have significant edema. PDMP PDMP Reviewed: Not Reviewed Attestations 2 Medical Necessity Statement*: Patient admitted for induction of labor. Anticipate at least 1 midnight stay. Coding Level of Care Code Acute Code for Chg Fwd Diagnoses Gestational diabetes mellitus (GDM) affecting O24.419 38 weeks gestation of Z3A.38 Elevated blood pressure affecting in third trimester, antepartum O16.3
[2025-01-08 08:44] LABS: Glucose 93 mg/dL (65-115)
[2025-01-08 09:00] LABS: Glucose Urine UA Negative (Normal); Nitrate Urine Negative (Negative); Specific Gravity, Urine 1.019 (1.005-1.030)
[2025-01-08 09:05] LABS: Add Urine Microscopic? YES
[2025-01-08 09:06] LABS: Alanine Aminotransferase 13 U/L (0-33); Albumin Level 3.4 g/dL (3.5-5.2); Alkaline Phosphatase 140 U/L (35-105); Anion Gap 17.8 (5-19); Aspartate Amino Transferase 21 U/L (0-32); Blood Urea Nitrogen 8 mg/dL (6-20); Calcium 9.4 mg/dL (8.5-10.5); Carbon Dioxide 19 mmol/L (22-29); Chloride 105 mmol/L (98-107); Creatinine Clr Calc Pharmacy 228.9464; Globulin 3.0 g/dL (1.3-4.6); Glucose 97 mg/dL (65-115); Osmolality Calculated 284 mOsm/kg (285-295); Potassium 3.8 mmol/L (3.5-5.1); Sodium 138 mmol/L (136-145); Total Protein 6.4 g/dL (6.6-8.7); Uric Acid 5.3 mg/dL (2.4-5.7)
[2025-01-08 09:23] LABS: UPRO/UCREAT Ratio 0.13 mg/mg CR
[2025-01-08 09:50] LABS: UA Manual Slide Review YES; UA Slide Review UA Slide Review Perf
[2025-01-08] MEDS: lidocaine 2% INJ 20 mL INJECTION (12:25)
--- NOTE | 2025-01-08 12:44 | PM.DELIVERY ---
Delivery Note: Date of delivery: January 08, 2025 Pre-delivery diagnoses: Gestational diabetes, term Post-delivery diagnoses: Same, viable female Procedure: Spontaneous vaginal delivery Op report anesthesia: Epidural Estimated blood loss (mL): 300 Pre-Delivery Course: This is a 29-year-old G6, P6 that presented at 38 weeks 5 days for induction of labor due to gestational diabetes. Delivery: Once patient was completely dilated the patient was placed into the normal lithotomy position. The patient was pushing with contractions until delivery of 's head occurred. With downward traction the anterior shoulder was then able to be delivered by, followed by the rest of the . Nuchal cord x 1 was noted. The was placed into mother's abdomen to the care of the waiting nursing staff. After delay the cord was clamped and cut and the was taken to the warmer for further intervention. Cord blood was obtained. Radhika was then delivered soon after. Review of the perineum did not show a second-degree perineal tear. It was repaired with 2-0 Vicryl. The procedure the uterus was firm and below the umbilicus and bleeding was managed. Post-Delivery Status: Stable A&P Assessment and plan 1. Gestational diabetes mellitus (GDM) affecting : Check blood pressures as needed. 2. Elevated blood pressure affecting in third trimester, antepartum: Continue to monitor blood pressure. 3. Spontaneous vaginal delivery: Proceed with routine care. PDMP PDMP Reviewed: Not Reviewed Coding Level of Care Code Acute Code for Chg Fwd Diagnoses Gestational diabetes mellitus (GDM) affecting O24.419 Elevated blood pressure affecting in third trimester, antepartum O16.3 Spontaneous vaginal delivery O80
--- NOTE | 2025-01-08 12:56 | P.ANESASSM_ITS ---
Pre-Anesthetic Assessment Height/Weight: Height 5 ft 2 in Weight 223 lb Pulse BP Pulse Ox O2 Del Method 109 H 144/88 100 Room Air 01/08/25 12:53 01/08/25 12:53 01/08/25 10:51 01/08/25 07:25 Preop Diagnosis: IUP Was Beta Robbi taken within 24 hours: N/A Was Clonidine taken within 24 hours: N/A Social No alcohol and No tobacco Exam alert, oriented x 3, clear to auscultation bilaterally and regular rate & rhythm Airway Submandibular: within normal limits Cervical ROM: within normal limits Mallampati: Class II Dentition: full Anesthetic Plan ASA status: 2 Anesthesia: Regional (specify below) Other: G6, P5 here requesting epidural placement Denies any issues during besides gestational diabetes No prior issues with epidurals Denies any cardiac or pulmonary issues Labs reviewed and acceptable for procedure Plan for routine epidural placement Medications/Allergies Home Medications ?Medication ?Instructions ?Recorded ?Confirmed ?Last Taken ?Type aripiprazole 10 mg tablet (Abilify) 10 mg PO DAILY 30 days #30 tabs 12/23/24 01/05/25 Unknown Rx quetiapine 25 mg tablet 50 mg (2 x 25 mg) PO BEDTIME 30 12/23/24 01/05/25 Unknown Rx days #60 tabs Allergies Allergy/AdvReac Type Severity Reaction Status Date / Time No Known Allergies Allergy Verified 12/31/24 13:23 [facility] Anesthesia Medical History (Updated 01/08/25 @ 12:49 by Pranay Fernandes MD) intermediate current use of antipsychotic medication Methamphetamine use disorder, severe Post-traumatic stress disorder, chronic Epigastric pain Acute cholecystitis Psychiatric care Other stimulant use, unspecified, uncomplicated Cannabis use disorder, mild, abuse 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 Self-injurious behavior Suicidal ideation Smoker Depression Surgical History No pertinent past surgical history Family History Father Psychiatric illness Schizophrenia, Unknown Psychiatric illness 2 of her cousins committed suicide Denies family history of CAD (coronary artery disease) Clotting disorder Chronic kidney disease (CKD) Cancer Social History Smoking and tobacco/nicotine status: current every day tobacco/nicotine user cigarettes Packs smoked per day: 0.5 Years cigarettes smoked: 6 Quit status (tobacco/nicotine): has tried quititng Number of times tried to quit tobacco: 1 Second hand smoke exposure: No Alcohol intake: never Substance/Drug Use: current Household members: family Housing: House Marital status details: She is a single mother of 5 children, Current gender identity: Female Female Reproductive History : 6 Data Anesthesia 01/08/25 07:25 01/08/25 07:25 Short CBC 01/08/25 Range/Units 07:25 WBC 11.23 (3.29-11.43) 10^3/uL Hgb 11.60 (11.27-16.99) g/dL Hct 34.8 L (36-47) % MCV 93.5 (85-98) fl Plt Count 218 (157-399) 10^3/cmm Neut % (Auto) 69.2 % Neut # (Auto) 7.77 H (1.8-7.7) 10^3/uL BMP 01/08/25 01/08/25 07:25 07:25 Sodium 138 Potassium 3.8 Chloride 105 Carbon Dioxide 19 L BUN 8 Creatinine 0.4 L Glucose 93 97 Calcium 9.4 Liver Function 01/08/25 Range/Units 07:25 Total Bilirubin 0.4 (0.15-1.2) mg/dL AST 21 (0-32) U/L ALT 13 (0-33) U/L Alkaline Phosphatase 140 H (35-105) U/L Albumin 3.4 L (3.5-5.2) g/dL Urine 01/08/25 Range/Units 07:30 Urine Color Dark yellow A (Yellow) Urine Appearance Cloudy A (CLEAR) Urine pH 6.5 (5-7) Ur Specific [place] 1.019 (1.005-1.030) Urine Protein Trace A (Negative) Urine Glucose (UA) Negative (Normal) Urine Ketones Trace (Negative) Urine Nitrate Negative (Negative) Urine Bilirubin 1+ H (Negative) Ur Leukocyte Esterase 2+ A (Negative) Urine RBC 11-20 H (0-2) /hpf Urine WBC 21-50 H (0-5) /hpf Blood Bank 01/08/25 07:25 Blood Type A Negative Rho(D) Type Rh negative Antibody Screen Positive
--- NOTE | 2025-01-08 12:57 | ANES.PROC ---
Anesthesia Procedures Procedure/Date: 01/08/25 Epidural: Time Out Performed: Yes Consents Signed: Procedure Consent and NPO Consent Consent: requested by attending/covering physician Lumbar Level: L3-L4 Epidural position: sitting Additional Comments: CSC performed. Site was sterilely prepped with ChloraPrep. 1% lidocaine was used to numb the skin. An 18-gauge epidural needle was then introduced until 8 cm or loss of resistance was achieved. A 27-gauge spinal needle was then introduced into the intrathecal space. 1 cc of 0.25% bupivacaine was then injected into the spinal canal. Spinal needle was removed and epidural catheter was then threaded into the epidural space and left at 15 cm to the skin. Patient tolerated procedure well. Sterile dressing was applied. 0.2% ropivacaine was set at 13 mL/h
--- NOTE | 2025-01-08 12:59 | ANE.PACU2 ---
Inpatient post-anesthesia follow up: Airway intact: Yes Vital signs: Temperature Pulse Rate 109 Respiratory Rate Blood Pressure 144/88 Pulse Oximetry 100 Oxygen Delivery Me thod Room Air Oxygen Flow Rate Fraction of Inspir ed Oxygen Hydration adequate: Yes Nausea and vomiting: No Pain level: 1 Mental status: Baseline Epidural Start/End: Epidural Start Date: 01/08/25 Epidural Start Time: 10:25 Epidural End Date: 01/08/25 Epidural End Time: 12:44
[2025-01-08] MEDS: labetalol 5 mg/mL SDV 20mL 20 MG IVP (15:02)
[2025-01-08] MEDS: labetalol 5 mg/mL SDV 20mL 40 MG IVP (15:26)
--- NOTE | 2025-01-08 16:21 | PC.NURSE ---
[address] JERRY BECAUSE PATIENT'S BLOOD PRESSURE IS INCREASING, TOLD HIM HER BLOOD PRESSURES SINCE DELIVERY AND ORDERS RECEIVED TO START PROTOCOL. 1504 LABETLOL 20MG GIVEN IVP 1515 155/94 DFS CAME IN AND SAW PATIENT AND SO BLOOD PRESSURE AT 1526 WAS 160/96 SO 40MG GIVEN THEN NEXT BLOOD PRESSURE AT 1540 149/83.
[2025-01-09] VITALS (7 sets, daily range): BP systolic 122–150; BP diastolic 68–90; PULSE 80–119; RESP 16–17; TEMP 36.5–36.8; O2SAT 98–99
[2025-01-09 00:30] LABS: Hematocrit 32.1 % (36-47); Hemoglobin 10.50 g/dL (11.27-16.99); Mean Corpuscular HGB Conc 32.7 g/dL (30-55); Mean Corpuscular Hemoglobin 31.5 pg (27-33); Mean Corpuscular Volume 96.4 fl (85-98); Platelet Count 194 10^3/cmm (157-399); Red Blood Count 3.33 10^6/uL (3.85-5.65); White Blood Count 17.08 10^3/uL (3.29-11.43)
--- NOTE | 2025-01-09 07:00 | P.PN_ITS ---
[employer]SEM[employer]ER Subjective 2 Subjective: Interval history: This is a 29-year-old G6, P6 that delivered a viable female vaginally yesterday. The patient's had some elevations of her blood pressures and some readings that were severe. Patient has not had severe readings 4 hours apart at this time. Had preeclamptic workup at admission and it was okay. Repeat protein creatinine ratio was 0.13. Patient states otherwise she feels well and has no concerns. Patient states that her lochia has been appropriate. Patient has been up and ambulating and has urinated without difficulty. Labor: Station: 0 Amniotic Membrane Status: Ruptured Monitor Mode: External Contraction Pattern: Regular Post /CS: Patient comments OB post-: no complaints baby status: doing well and bottle feeding well feeding status: e xclusively bottle feeding Vitals/I&O/Wt Last Vital Signs Pulse 105 H 01/09/25 00:00 Resp 16 01/09/25 00:00 BP 147/88 01/09/25 04:48 Pulse Ox 98 01/09/25 00:00 O2 Del Method Room Air 01/09/25 00:00 01/08/25 01/09/25 01/09/25 22:59 06:59 14:59 Intake Total 800 / 800 Balance 800 / 800 Weight last 48 hrs Weight 101.151 kg Physical Exam 2 Const: COMMON NORMALS: no acute distress and patient oriented x3 Neck/C-Spine: COMMON NORMALS: no JVD Resp: COMMON NORMALS: normal respiratory effort and No retractions Cardio: COMMON NORMALS: no JVD, regular rate and regular rhythm RATE: r egular rate RHYTHM: regular rhythm GI: OTHER: Was firm and below umbilicus Extremity: GENERAL: Yes edema Neuro: COMMON NORMALS: patient oriented x3, moves all extremities, no focal motor deficits and no sensory deficits noted Psych: COMMON NORMALS: mental status grossly normal Skin: COMMON NORMALS: no rashes or lesions noted GENERAL SKIN EXAM: no rashes or lesions noted Data 01/09/25 00:05 01/08/25 07:25 A&P Assessment and plan 1. Elevated blood pressure reading: Blood pressure has remained elevated and we will continue to monitor today. The patient may need to start blood pressure medications before discharge. 2. Spontaneous vaginal delivery: Continue with routine care. 3. Gestational diabetes mellitus (GDM) affecting : We will have to monitor blood sugars going forward. Patient was counseled on the potential of diabetes going forward. PDMP PDMP Reviewed: Not Reviewed Attestations 2 Medical Necessity Statement*: Patient admitted for induction of labor. Continued admission needed due to blood pressure issues. Anticipate discharge tomorrow Coding Level of Care Code Acute Code for Chg Fwd Diagnoses Elevated blood pressure reading R03.0 Spontaneous vaginal delivery O80 Gestational diabetes mellitus (GDM) affecting O24.419
[2025-01-09] MEDS: PRENATAL VIT NO.130/IRON/FOLIC 1 EACH TABLET PO (10:26)
[2025-01-10 04:45] VITALS: BP 128/87; PULSE 95; RESP 16; TEMP 36.6; TEMP 36.7; O2SAT 96
--- NOTE | 2025-01-10 08:02 | PM.OBGYDC ---
Discharge Providers HEAD BATCHER Date of Admission: 01/08/25 07:10 Date of Discharge: 01/10/25 Attending Provider at Admission: Pranay Fernandes MD Attending Provider at Discharge: Pranay Fernandes MD Primary Care Provider: Pranay Fernandes MD Diagnoses at Discharge Discharge Diagnosis 1. Elevated blood pressure readin. Spontaneous vaginal delivery: 3. Gestational diabetes mellitus (GDM) affecting : Reason for Visit Reason for Visit: IOL Hospital Course Hospital Course This is a 29-year-old G6, P6 that presented for induction of labor for gestational diabetes. Patient underwent induction without any significant complication. Patient delivered a viable infant female vaginally without complication. Patient did have a second-degree perineal tear and repair. Patient did have some elevations of blood pressures after delivery that did require some intervention but her blood pressures had returned back to normal. Patient's lochia has been appropriate and vital signs remained stable. Patient has no other concerns. Information Peripartum Data: Infant Delivery Method: Vaginal Laceration description: Perineal - 2nd Degree Episiotomy description: None complications: none Physical Exam Const: COMMON NORMALS: no acute distress and patient oriented x3 Neck/C-Spine: COMMON NORMALS: no JVD Resp: COMMON NORMALS: normal respiratory effort and No retractions Cardio: COMMON NORMALS: no JVD, regular rate and regular rhythm RATE: regular rate RHYTHM: regular rhythm GI: OTHER: Was firm and below umbilicus Extremity: GENERAL: Yes edema Neuro: COMMON NORMALS: patient oriented x3, moves all extremities, no focal motor deficits and no sensory deficits noted Psych: COMMON NORMALS: mental status grossly normal Skin: COMMON NORMALS: no rashes or lesions noted GENERAL SKIN EXAM: no rashes or lesions noted Discharge Data Studies Completed and Pending Laboratory Results WBC 17.08 10^3/uL (3.29-11.43) H 01/09/25 00:05 RBC 3.33 10^6/uL (3.85-5.65) L 01/09/25 00:05 Hgb 10.50 g/dL (11.27-16.99) L 01/09/25 00:05 Hct 32.1 % (36-47) L 01/09/25 00:05 MCV 96.4 fl (85-98) 01/09/25 00:05 MCH 31.5 pg (27-33) 01/09/25 00:05 MCHC 32.7 g/dL (30-55) 01/09/25 00:05 RDW 15.2 % (12.1-15.1) H 01/09/25 00:05 Plt Count 194 10^3/cmm (157-399) 01/09/25 00:05 MPV 11.1 fL (7.4-10.4) H 01/09/25 00:05 Neut % (Auto) 69.2 % 01/08/25 07:25 Lymph % (Auto) 21.0 % 01/08/25 07:25 [place] % (Auto) 7.2 % 01/08/25 07:25 Eos % (Auto) 2.0 % 01/08/25 07:25 Baso % (Auto) 0.2 % 01/08/25 07:25 Neut # (Auto) 7.77 10^3/uL (1.8-7.7) H 01/08/25 07:25 Lymph # (Auto) 2.4 10^3/uL (0.8-4.8) 01/08/25 07:25 [place] # (Auto) 0.8 10^3/uL (0.2-0.9) 01/08/25 07:25 Eos # (Auto) 0.2 10^3/uL (0.0-0.8) 01/08/25 07:25 Baso # (Auto) 0.0 10^3/uL (0.0-0.1) 01/08/25 07:25 Nucleated RBC % (auto) 0 % 01/08/25 07:25 Nucleated RBCs # 0.0 /100WBC 01/08/25 07:25 Sodium 138 mmol/L (136-145) 01/08/25 07:25 Potassium 3.8 mmol/L (3.5-5.1) 01/08/25 07:25 Chloride 105 mmol/L (98-107) 01/08/25 07:25 Carbon Dioxide 19 mmol/L (22-29) L 01/08/25 07:25 Anion Gap 17.8 (5-19) 01/08/25 07:25 BUN 8 mg/dL (6-20) 01/08/25 07:25 Creatinine 0.4 mg/dL (0.5-0.9) L 01/08/25 07:25 GFR Calculation 187.4 mL/min (90-130) H 01/08/25 07:25 Glucose 93 mg/dL (65-115) 01/08/25 07: Glucose 97 mg/dL (65-115) 01/08/25 07:25 Calculated Osmolality 284 mOsm/kg (285-295) L 01/08/25 07:25 Uric Acid 5.3 mg/dL (2.4-5.7) 01/08/25 07: Calcium 9.4 mg/dL (8.5-10.5) 01/08/25 07: Total Bilirubin 0.4 mg/dL (0.15-1.2) 01/08/25 07: AST 21 U/L (0-32) 01/08/25 07: ALT 13 U/L (0-33) 01/08/25 07:25 Alkaline Phosphatase 140 U/L (35-105) H 01/08/25 07:25 Total Protein 6.4 g/dL (6.6-8.7) L 01/08/25 07:25 Albumin 3.4 g/dL (3.5-5.2) L 01/08/25 07:25 Globulin 3.0 g/dL (1.3-4.6) 01/08/25 07:25 Urine Color Dark yellow (Yellow) A 01/08/25 07:30 Urine Appearance Cloudy (CLEAR) A 01/08/25 07:30 Urine pH 6.5 (5-7) 01/08/25 07:30 Ur Specific [place] 1.019 (1.005-1.030) 01/08/25 07:30 Urine Protein Trace (Negative) A 01/08/25 07:30 Urine Glucose (UA) Negative (Normal) 01/08/25 07:30 Urine Ketones Trace (Negative) 01/08/25 07:30 Urine Blood Non-haemolysed trace (Negative) 01/08/25 07:30 Urine Nitrate Negative (Negative) 01/08/25 07:30 Urine Bilirubin 1+ (Negative) H 01/08/25 07:30 Urine Urobilinogen 2.0 mg/dL (Negative) H 01/08/25 07:30 Ur Leukocyte Esterase 2+ (Negative) A 01/08/25 07:30 Urine RBC 11-20 /hpf (0-2) H 01/08/25 07:30 Urine WBC 21-50 /hpf (0-5) H 01/08/25 07:30 Ur Squamous Epith Cells 0-4 /hpf (0-5) H 01/08/25 07:30 Calcium Oxalate Crystal 40-55 /hpf H 01/08/25 07:30 Amorphous Sediment Not Reportable 01/08/25 07:30 Urine Bacteria 1+ /hpf (NONE) H 01/08/25 07:30 Hyaline Casts 0-4 /lpf H 01/08/25 07:30 Urine Mucus 1+ /hpf 01/08/25 07:30 U Random Total Protein 19 mg/dL 01/08/25 07:30 Urine Creatinine 152 mg/dL (28-217) 01/08/25 07:30 Protein/Creatinin Ratio 0.13 mg/mg CR 01/08/25 07:30 Urine Opiates Screen Negative ng/mL (Negative) 01/08/25 07:30 Ur Barbiturates Screen Negative ng/mL (Negative) 01/08/25 07:30 Ur Phencyclidine Scrn Negative ng/mL (Negative) 01/08/25 07:30 Ur Amphetamines Screen Negative ng/mL (Negative) 01/08/25 07:30 U Benzodiazepines Scrn Negative ng/mL (Negative) 01/08/25 07:30 Urine Cocaine Screen Negative ng/mL (Negative) 01/08/25 07:30 U Marijuana (THC) Screen Positive ng/mL (Negative) H 01/08/25 07:30 Blood Type A Negative 01/08/25 07:25 Rho(D) Type Rh negative 01/08/25 07:25 Antibody Screen Positive 01/08/25 07:25 Antibody Identification Anti-D 01/08/25 07:25 Screen Negative (Negative) 01/09/25 00:05 Vitals Last Vital Signs Temp 98.0 F 01/10/25 04:45 Pulse 95 01/10/25 04:45 Resp 16 01/10/25 04:45 BP 128/87 01/10/25 04:45 Pulse Ox 96 01/10/25 04:45 O2 Del Method Room Air 01/10/25 04:45 Results Labs OB ([facility]): Obstetrics US 10/13/24 Blood Type A Negative 01/08/25 Antibody Screen Positive 01/08/25 Hct, (36-47) 32.1 % L 01/09/25 Hgb, (11.27-16.99) 10.50 g/dL L 01/09/25 Rho(D) Type Rh negative 01/08/25 Plt Count, (157-399) 194 10^3/cmm 01/09/25 Hemoglobin A1c, (4.0-6.0) 5.4 % 12/31/24 Uric Acid, (2.4-5.7) 5.3 mg/dL 01/08/25 Urine Opiates Screen, (Negative) Negative ng/mL 01/08/25 Ur Barbiturates Screen, (Negative) Negative ng/mL 01/08/25 Ur Phencyclidine Scrn, (Negative) Negative ng/mL 01/08/25 Ur Amphetamines Screen, (Negative) Negative ng/mL 01/08/25 U Benzodiazepines Scrn, (Negative) Negative ng/mL 01/08/25 Urine Cocaine Screen, (Negative) Negative ng/mL 01/08/25 U Marijuana (THC) Screen, (Negative) Positive ng/mL H 01/08/25 Discharge Plan Discharge Patient Disposition: Home Condition: Stable Prescriptions: Continued aripiprazole [Abilify] 10 mg tablet 10 mg PO DAILY 30 Days Qty: 30 2RF quetiapine 25 mg tablet 50 mg PO BEDTIME 30 Days Qty: 60 2RF Discharge Order = DC NOW: Discharge Order (Routine); Ordered 01/10/25 Ordered By: Pranay Fernandse Referrals: Pranay Fernandes MD [Primary Care Provider, [facility]] - 02/19/25 1:00 pm Discharge Diet: Usual diet Discharge Activity: Limit activity as instructed Patient Instructions: Depression (DC), Opioid Safety (DC), Preeclampsia and Eclampsia After Delivery (GEN), Hemorrhage (DC), OB Discharge Report, OB Food/Drug Interaction Guide, OB Care at Home, Opioid Safety, OB Vaginal Deliveries, Patient Portal & Claribel Instructions, Abnormal Bleeding Discharge Attestations HEAD BATCHER Time Spent in Discharge Care*: less than 30 min Status at Discharge: Cognitive status at discharge: cognitively intact, Behavioral status at discharge: cooperative, Coding Level of Care Code Acute Code for Chg Fwd Diagnoses Elevated blood pressure reading R03.0 Spontaneous vaginal delivery O80 Gestational diabetes mellitus (GDM) affecting O24.419
[2025-01-10] MEDS: PRENATAL VIT NO.130/IRON/FOLIC 1 EACH TABLET PO (08:42)
[2025-01-10 09:14] VITALS: BP 111/89; PULSE 82; RESP 16; TEMP 36.6; O2SAT 98
== END 2025-01-10 09:38 | disposition home or self-care (01) | DRG 805 ==
PROVIDERS: Admitting Provider Family Medicine; PCP Family Medicine; Visit Provider Family Medicine
DX: O24.429 Gestational diabetes mellitus in childbirth, unspecified control (principal); O99.42 Diseases of the circulatory system complicating childbirth; Z37.0 Single live birth; O69.81X0 Labor and delivery complicated by cord around neck, without compression, not applicable or unspecified; O70.1 Second degree perineal laceration during delivery; Z3A.38 38 weeks gestation of pregnancy; R03.0 Elevated blood-pressure reading, without diagnosis of hypertension
CPT/HCPCS: 36415; 36430; 59025; 59409; 80053; 80306; 80503; 81001; 82570; 82947; 84156; 84550; 85025; 85027; 85460; 86850; 86870; 86900; 90384; 96374; 99211; J2540; J2590; J3490; J7030; J7121; J9999